=== PATIENT | female | born 1965 | race Caucasian/White ===

== ENCOUNTER 2016-10-05 21:07 | Emergency (ER) | payer OTHER ==
[~2016-10-05] VITALS: Ht 172.7 cm; Wt 77.1 kg
[~2016-10-05 21:07] MED LIST: ASPIRIN325 MG PO; AURODEX 54 MG/M10 ML OT; BACTRIM 400-801 EACH PO; CARLSON VITAM2000 IU PO; CENTRUM1 TA1 PO; CEPHALEXIN250 M2 PO; CLEOCIN HCL300 MG PO; CYCLOBENZAPRINE10 M2 PO; DILAUDID2 MG PO; ECOTRIN81 MG PO; ESCITALOPRAM OX10 MG PO; ESCITALOPRAM10 MG PO; FISH OIL CONCEN1 SGL PO; FLEXERIL 5MG TAB5 MG PO; IBU-6600 MG PO; IBUPROFEN800 MG PO; KEFLEX250 M1 PO; LISINOPRIL10 M1 PO; MEDROL DOSEPAK1 PAC PO; MELOXICAM7.5 MG PO; MOTRIN 600 MG600 MG PO; NAPROXEN500 MG PO; NEXIUM 24HR20 MG PO; NICOTINE PATCH1 EAC3 TOP; NORFLEX100 MG PO; OMEPRAZOLE40 MG PO; ONE DAILY MULT1 EAC2 PO; PANTOPRAZOLE SO40 MG PO; PERCOCET 325 MG1 TA2 PO; PREDNISONE 10MG10 M1 PO; PREDNISONE 20MG20 MG PO; TORADOL10 MG PO; TRAMADOL HCL50 M1 PO; TRIAMCINOL0.1 %/453 TOP; VALIUM5 M1 PO; ZITHROMAX Z PA250 MG PO; ZITHROMAX250 M1 PO; [UNRECOGNIZED DRUG - OTHER] PO
[2016-10-05 21:13] VITALS: BP 103/66
--- NOTE | 2016-10-05 21:49 | ED NECK/BACK PAIN COMPLAINT ---
History of Present Illness General Chief Complaint: Low Back Pain/Injury Stated Complaint: LEFT SIDE BACK AND LEG PAIN FROM SHOVELING Source: patient, old records Exam Limitations: no limitations Vital Signs & Intake/Output Vital Signs & Intake/Output Vital Signs Date Time Temp Pulse Resp B/P Pulse O2 O2 Flow FiO2 Ox Delivery Rate 10/05 2112 96.8 80 18 103/66 96 Room Air Allergies Coded Allergies: Penicillins (Intermediate, GI UPSET 02/09/16) Reconcile Medications Cyclobenzaprine HCl 5 MG TABLET 1 TAB PO TIDPRN PRN pain Escitalopram Oxalate 10 MG TABLET 1 TAB PO DAILY MENTAL HEALTH (Reported) Esomeprazole Magnesium (Nexium 24HR) 20 MG ECC 1 CAP PO PRN GI (Reported) Ibuprofen 800 MG TABLET 1 TAB PO TID PRN pain Lisinopril 10 MG TABLET 1 TAB PO DAILY BP (Reported) Multivitamin (One Daily Multivitamin) 1 TAB TAB 1 TAB PO DAILY SUPPLEMENT ( Reported) Nicotine (Nicotine Patch) 1 EACH PATCH.TD24 21 MG TOP 2300 smoking Oxycodone HCl/Acetaminophen (Percocet 5-325 MG Tablet) 5 MG-325 MG TABLET 1 TAB PO BID PRN breakthrough pain Tramadol HCl 50 MG TABLET 1 TAB PO BIDP PRN PAIN Vitamin D (Mercedes Vitamin D) (Unknown Strength) SGL 1 TAB PO DAILY SUPPLEMENT (Reported) Vitamin E (Sibley-E-Kaps) (Unknown Strength) SGL 1 TAB PO DAILY SUPPLEMENT ( Reported) Triage Note: PT TO ED C/O EXACERBATION OF SCIATICA PAIN TO LEFT LEG S/P SHOVELING TODAY. STATES HAD 2 GLASSES OF PINOT GRIGIO "BUT IT DIDN'T HELP" SPEACH SLIGHTLY SLURRED, PT JOVIAL IN TRIAGE Triage Nurses Notes Reviewed? yes Onset: Abrupt Duration: day(s): (1), constant Timing: recent history Quality/Severity: moderate Location: paraspinous muscles Radiation: buttocks, upper legs Context: lifting Method of Injury: LIFTING Loss of Consciousness: no loss of consciousness Modifying Factors: movement, rest Associated Symptoms: denies HPI: 51-year-old female with history of sciatica presents emergency room today for evaluation complaining of left lower back pain radiating to the left buttocks since earlier this morning when she was shuffling/. The patient reports a history of sciatica and states this feels similar. She took Tylenol without improvement. She reports tingling down her leg she denies any right-sided back or leg pain numbness or tingling. No urinary or bowel incontinence she did not fall to the ground. She denies any abdominal pain fever chills. The symptoms are worse with change in position better at rest Past History Travel History Traveled to [place] past 21 day No Medical History Any Pertinent Medical History? 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 No Review of Systems Review of Systems Constitutional: Reports: see HPI. All Other Systems: Reviewed and Negative Comments Review of systems: See HPI, All other systems negative. Constitutional, no chills no fever, no malaise HEENT: No visual changes no sore throat no congestion Cardiovascular: No chest pain , no palpitation Skin, no rashes, no change in skin Respiratory: No dyspnea no cough no sputum no hemoptysis GI: No nausea no vomiting, no diarrhea, n : No dysuria No hematuria, no frequency, no discharge Muscle skeletal: No joint pain, no joint swelling, back pain, no neck pain, Neurologic: No numbness no confusion, no headache Psych: No stress Heme/endocrine: No bruising no bleeding Immunology: No lymphadenopathy, Physical Exam Physical Exam General Appearance: well developed/nourished, alert, awake Neck: normal inspection, supple Comments: Well-developed well-nourished person in no acute distress HEENT: Normal EENT exam; PERRL, EOMI, HEAD is atraumatic. moist mucous membranes. Neck: Supple, no lymphadenopathy, normal range of motion Back: Left paralumbar muscle tenderness to palpation of midline tenderness no ecchymosis or signs of trauma, no CVA tenderness. Full range of motion Cardiovascular: Regular rate and rhythms no murmurs rubs or gallops Respiratory: No respiratory distress. Patient speaking in full complete sentences. Breath sounds clear to auscultation bilaterally: NO W/R/R Abdomen: Soft, nontender nondistended, no appreciable organomegaly. Normal bowel sounds. No rebound/guarding, Extremity: No edema, negative straight leg raise bilaterally full range of motion of extremities, normal and equal pulses bilaterally, 5 out of 5 strength noted to bilateral upper and lower extremities Neuro: Alert oriented x3, motor sensory normal. There were no obvious focal neurologic abnormalities. Skin: No appreciable rash on exposed skin, skin is warm and dry. Psych: Mood and affect is normal, memory and judgment is normal. Progress Differential Diagnosis: herniated disc, myofascial strain, pyelo/UTI, sciatica, spinal cord inj, thoracic outlet syn Plan of Care: Patient clinically looks well. Patient has no evidence of radiculopathy. No urinary bowel dysfunction. No numbness in the genital area. Strength intact. Gross sensation intact. Patient resting comfortably and in no apparent distress. Pain is worse with range of motion. Pain is reproducible IN back with no bruising or ecchymosis noted. . Patient is to follow-up with primary care doctor. May need MRI of the lower back at some point time. No concerns for cauda equina at this point time. I considered this diagnosis but patient does not have any symptoms consistent with cauda equina. Patient has no secondary causes of back pain. No cardiac, pulmonary, or abdominal complaints. No abdominal pain on exam. Cardiac pulmonary exam within normal limits. No rashes, afebrile, denies recent weight loss, dizziness, lightheadedness. Prescription for Percocet Flexeril ibuprofen provided she is scheduled to follow up with her primary care physician this week she feels comfortable plan patient is ambulatory with steady gait Departure Departure Time of Disposition: 2152 Disposition: HOME OR SELF CARE Condition: Stable Clinical Impression Primary Impression: Low back strain Referrals: FÉLIX SWIFT MD (PCP/Family) Additional Instructions: Follow-up with your primary care physician as scheduled in 2 days. Ibuprofen as directed Percocet for breakthrough pain use caution as this is a narcotic no driving or drinking alcohol while taking Flexeril as directed. These prescriptions were sent to [facility] Departure Forms: Customer Survey General Discharge Information Prescriptions: Current Visit Scripts Oxycodone HCl/Acetaminophen (Percocet 5-325 MG Tablet) 1 TAB PO BID PRN breakthrough pain #8 TAB Ibuprofen 1 TAB PO TID PRN pain #30 TAB Cyclobenzaprine HCl 1 TAB PO TIDPRN PRN pain #12 TAB
[2016-10-05] MEDS ORDERED: IBUPROFEN800 M1 PO (21:54)
[2016-10-05] MEDS ORDERED: PERCOCET 5-3251 EACH PO (21:54)
[2016-10-05] MEDS ORDERED: CYCLOBENZAPRINE5 M2 PO (21:54)
== END 2016-10-05 22:00 ==
LOC: ERH 21:07
DX: S39.012A Strain of muscle, fascia and tendon of lower back, initial encounter (principal); X58.XXXA Exposure to other specified factors, initial encounter; Y93.H1 Activity, digging, shoveling and raking

== ENCOUNTER 2016-10-06 23:25 | Inpatient (IN) | payer OTHER ==
[~2016-10-06] VITALS: Ht 172.7 cm; Wt 74.8 kg
[~2016-10-06 23:25] MED LIST changes: +CYCLOBENZAPRINE5 M2 PO; +IBUPROFEN800 M1 PO; +PERCOCET 5-3251 EACH PO
--- NOTE | 2016-10-06 23:33 | ED CARDIAC/CP/PALPITATIONS ---
History of Present Illness General Chief Complaint: Chest Pain Stated Complaint: CHEST PAIN Source: patient Exam Limitations: no limitations Vital Signs & Intake/Output Vital Signs & Intake/Output Vital Signs Date Time Temp Pulse Resp B/P Pulse O2 O2 Flow FiO2 Ox Delivery Rate 10/07 0123 174/114 10/07 0050 80 170/100 10/06 2340 96 Room Air 10/06 2336 97.5 82 20 179/106 96 Room Air ED Intake and Output 10/07 0000 10/06 1200 Intake Total 100 Output Total Balance 100 Intake, IV 100 Patient 175 lb Weight Allergies Coded Allergies: Penicillins (Intermediate, GI UPSET 02/09/16) Reconcile Medications Cyclobenzaprine HCl 5 MG TABLET 1 TAB PO TIDPRN PRN pain Escitalopram Oxalate 10 MG TABLET 1 TAB PO DAILY MENTAL HEALTH (Reported) Esomeprazole Magnesium (Nexium 24HR) 20 MG ECC 1 CAP PO PRN GI (Reported) Ibuprofen 800 MG TABLET 1 TAB PO TID PRN pain Lisinopril 10 MG TABLET 1 TAB PO DAILY BP (Reported) Multivitamin (One Daily Multivitamin) 1 TAB TAB 1 TAB PO DAILY SUPPLEMENT ( Reported) Nicotine (Nicotine Patch) 1 EACH PATCH.TD24 21 MG TOP 2300 smoking Oxycodone HCl/Acetaminophen (Percocet 5-325 MG Tablet) 5 MG-325 MG TABLET 1 TAB PO BID PRN breakthrough pain Tramadol HCl 50 MG TABLET 1 TAB PO BIDP PRN PAIN Vitamin D (Mercedes Vitamin D) (Unknown Strength) SGL 1 TAB PO DAILY SUPPLEMENT (Reported) Vitamin E (Sibley-E-Kaps) (Unknown Strength) SGL 1 TAB PO DAILY SUPPLEMENT ( Reported) Triage Nurses Notes Reviewed? yes Onset: Gradual Duration: day(s): Timing: recent history Quality/Severity: moderate Location: epigastric Radiation: no radiation Activities at Onset: none Prior Chest Pain/Card Workup: "it feels like I have pancreatitis." Modifying Factors: Improves With: rest. Worsens With: palpation. Associated Symptoms: abdominal pain, nausea/vomiting HPI: 51-year-old woman history of pancreatitis presents with midepigastric pain, nausea, vomiting for the past 1-2 days. She notes that she drinks vodka "throughout the day." She last had a drink several days ago. She notes 20 minutes prior to presentation in the emergency department that she had fleeting left-sided chest pain. She has no shortness of breath wheezing or radiating pain. She is otherwise well, without fever chills dysuria or diarrhea. Past History Travel History Traveled to [place] past 21 day No Medical History Any Pertinent Medical History? 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 No Review of Systems Review of Systems Constitutional: Reports: no symptoms. EENTM: Reports: no symptoms. Respiratory: Reports: no symptoms. Cardiovascular: Reports: no symptoms. GI: Reports: no symptoms. Genitourinary: Reports: no symptoms. Musculoskeletal: Reports: no symptoms. Skin: Reports: no symptoms. Neurological/Psychological: Reports: no symptoms. Hematologic/Endocrine: Reports: no symptoms. Immunologic/Allergic: Reports: no symptoms. All Other Systems: Reviewed and Negative Physical Exam Physical Exam General Appearance: well developed/nourished, mild distress Head: atraumatic, normal appearance Eyes: Bilateral: normal appearance. Ears, Nose, Throat: normal pharynx, normal ENT inspection Neck: normal inspection, supple, full range of motion Respiratory: normal breath sounds, chest non-tender, no respiratory distress, quiet respiration, lungs clear Cardiovascular: regular rate/rhythm Gastrointestinal: normal bowel sounds, soft, non-tender, no organomegaly Back: normal inspection, normal range of motion Extremities: normal inspection Neurologic/Psych: no motor/sensory deficits, awake, alert, oriented x 3 Skin: intact, normal color, warm/dry Core Measures ACS in differential dx? No Severe Sepsis Present: No Septic Shock Present: No Progress Differential Diagnosis: pancreatitis versus reflux versus alcohol withdrawal syndrome versus AR versus acute coronary syndrome versus other Plan of Care: Orders Procedure Date/time Status Nothing by Mouth 10/07 B Active Patient Data 10/07 010 Active Saline Lock 10/07 48 Active Misc Message 10/07 48 Active ED Holding Orders 10/07 48 Active Admit to inpatient 10/07 48 Active Vital Signs 10/07 48 Active Code Status 10/07 48 Active CTA CHEST-PULMONARY EMBOLISM 10/[address] ABD & PELVIS W IV CONTRAST 10/07 48 Active Add-on Test (ER Only) 10/06 2351 Active LIPASE 10/06 2345 Complete ETHANOL 10/06 2345 Complete AMYLASE 10/06 234 Complete XRY-PORTABLE CHEST XRAY 10/06 232 Active TROPONIN LEVEL 10/06 2327 Complete HUMAN BETA HCG SCREEN 10/06 2327 Complete D-DIMER 10/06 2327 Complete COMPREHENSIVE METABOLIC PANEL 10/06 2327 Complete CBC WITHOUT DIFFERENTIAL 10/06 2327 Complete EKG 10/06 2325 Active Current Medications Sig/Sina Start time Last Medication Dose Stop Time Status Admin Sodium Chloride 1,000 ML BOLUS ONE 10/07 0145 UNVr (Normal Saline 0.9%) 10/07 0244 Laboratory Tests 10/06/165: Anion Gap 13, Estimated GFR > 60, BUN/Creatinine Ratio 34.3 H, Glucose 145 H, Calcium 10.0, Total Bilirubin 0.9, AST 27, ALT 38, Alkaline Phosphatase 86, Troponin I < 0.01, Total Protein 7.5, Albumin 4.7, Globulin 2.8, Albumin/ Globulin Ratio 1.7, Amylase 441 H, Lipase 3831 H, Total Beta HCG NEGATIVE, D- Dimer 540 H, CBC w Diff MAN DIFF ORDERED, RBC 4.87, MCV 93.5, MCH 31.8 H, RDW 14.1, MPV 9.1, Gran % 89.3 H, Lymphocytes % 6.3 L, Monocytes % 4.0, Eosinophils % 0.1, Basophils % 0.3, Absolute Granulocytes 12.4 H, Segmented Neutrophils 94 H, Absolute Lymphocytes 0.9 L, Lymphocytes 3 L, Monocytes 3, Absolute Monocytes 0.6, Absolute Eosinophils 0, Absolute Basophils 0, Platelet Estimate ADEQUATE, Normochromic RBCs VERIFIED, Poikilocytosis 1+, Ovalocytes FEW , Stomatocytes 1+, PUBS MCHC 33.9, Fld Total RBCs Counted 100, Serum Alcohol < 10.0 10/06/162334: Amylase Cancelled, Lipase Cancelled Initial ED EKG: normal axis, normal intervals, normal p-waves, normal QRS complex, normal sinus rhythm Departure Departure Disposition: STILL A PATIENT Condition: Stable Clinical Impression Primary Impression: Pancreatitis Secondary Impressions: Chest pain, Hypertension Referrals: FÉLIX SWIFT MD (PCP/Family) Departure Forms: Customer Survey General Discharge Information Admission Note Spoke With: LUCHO VERAS MD Documentation of Exam: Documentation of any treatments & extenuating circumstances including Concerns Regarding Discharge (functional status, medication knowledge or non-compliance, living conditions, etc.) that warrant an admission rather than observation: Patient has pancreatitis and merits IV fluids and bowel rest. She also has chest pain and elevated blood pressure. Because of this she merits a telemetry admission and assessment for acute coronary syndrome and myocardial infarction with serial troponins and EKGs. CT angiogram to assess for pulmonary emboli has been ordered. At this time the results are pending. Critical Care Note Critical Care Note Critical Care Time: non-applicable
--- NOTE | 2016-10-06 23:39 | NUR ---
TO RM 3 AM W/CO RUQ PAIN, CP AND SCIATICA THAT CAME ON YESTERDAY. STATES SHE "WA TAKING PAIN MEDS FOR SCIATICA ADN WAS UNABLE TO HAVE BM. TODAY ABD PAIN AND VOMITING BEGAN DR VALLADARES AT BEDSIDE.
--- NOTE | 2016-10-06 23:45 | NUR ---
IV INSERTED. LABS DRWN -- SST,LAV,BLUE,SALE[facility] ALL SENT
--- NOTE | 2016-10-07 00:04 | NUR ---
STILL CO NAUSEA AFTER IV MEDS GIVEN. GI COCKTAIL HELD AT THIS TIME.
[2016-10-07 00:06] LABS: ABSOLUTE BASOPHIL COUNT 0 /CUMM (0.0-0.2); ABSOLUTE EOSINOPHIL COUNT 0 /CUMM (0.0-0.7); ABSOLUTE GRANULOCYTE CT 12.4 /CUMM (1.4-6.5); ABSOLUTE LYMPH COUNT 0.9 /CUMM (1.2-3.4); ABSOLUTE MONOCYTE COUNT 0.6 /CUMM (0.10-0.60); BASOPHIL % 0.3 % (0.0-2.0); EOSINOPHIL % 0.1 % (0-5); HEMATOCRIT 45.5 % (37-47); MEAN CORPUSCULAR HGB 31.8 PG (27.0-31.0); MEAN CORPUSCULAR HGB CONC 33.9 G/DL (33.0-37.0); MEAN CORPUSCULAR VOLUME 93.5 FL (81.0-99.0); MEAN PLATELET VOLUME 9.1 FL (7.4-10.4); PLATELET COUNT 191 /CUMM (130-400); RBC DISTRIBUTION WIDTH 14.1 % (11.5-14.5); RED BLOOD CELL CT 4.87 /CUMM (4.20-5.40); WHITE BLOOD CELL COUNT 13.8 /CUMM (4.8-10.8)
[2016-10-07 00:11] LABS: GRANULOCYTE % 89.3 % (42.2-75.2)
--- NOTE | 2016-10-07 01:12 | History & Physical ---
DEBBIE CLAYTON,[facility] [place]/07/16 0110: General Information and HPI MD Statement: I have seen and personally examined LOBITO STILES and documented this H&P. The patient is a 51 year old F who presented with a patient stated chief complaint of chest and abdominal pain. Source of Information: patient, old records Exam Limitations: no limitations History of Present Illness: Ms. Stiles is a 51 y/o F with PMHx of acute pancreatitis, alcohol dependence, cholelithiasis s/p cholecystectomy, GERD, L hip fracture, sciatica and HTN who presents with chest and abdominal pain and nausea/vomiting. Abdominal pain is epigastric and came on suddenly around 2-3 PM this afternoon while patient was lying in bed. Since then it has been progressively getting worse. She also complains of pain under her left chest which is nonradiating. Of note, patient has been having nausea and episodes of nonbloody bilious emesis since the morning of current presentation. She does not have an appetite and has not eaten anything today. She denies fever or chills. She denies palpitations or shortness of breath. She denies headache, lightheadedness or dizziness. She is a heavy drinker but plans to enroll in an outpatient rehab program. Her last drink was a bottle of wine two days ago. Of note, patient was hospitalized at [facility] for acute pancreatitis secondary to alcohol use, approximately one year prior to current presentation (10/29/15-11/01/15). Allergies/Medications Allergies: Coded Allergies: Penicillins (Intermediate, GI UPSET 02/09/16) Home Med list Cyclobenzaprine HCl 5 MG TABLET 1 TAB PO TIDPRN PRN pain Escitalopram Oxalate 10 MG TABLET 1 TAB PO DAILY MENTAL HEALTH (Reported) Esomeprazole Magnesium (Nexium 24HR) 20 MG ECC 1 CAP PO PRN GI (Reported) Ibuprofen 800 MG TABLET 1 TAB PO TID PRN pain Lisinopril 10 MG TABLET 1 TAB PO DAILY BP (Reported) Multivitamin (One Daily Multivitamin) 1 TAB TAB 1 TAB PO DAILY SUPPLEMENT ( Reported) Nicotine (Nicotine Patch) 1 EACH PATCH.TD24 21 MG TOP 2300 smoking Oxycodone HCl/Acetaminophen (Percocet 5-325 MG Tablet) 5 MG-325 MG TABLET 1 TAB PO BID PRN breakthrough pain Tramadol HCl 50 MG TABLET 1 TAB PO BIDP PRN PAIN Vitamin D (Mercedes Vitamin D) (Unknown Strength) SGL 1 TAB PO DAILY SUPPLEMENT (Reported) Vitamin E (Sibley-E-Kaps) (Unknown Strength) SGL 1 TAB PO DAILY SUPPLEMENT ( Reported) Past History Travel History Traveled to [place] past 21 day No Medical History Neurological: NONE EENT: NONE Cardiovascular: hypertension Respiratory: NONE Gastrointestinal: GERD, pancreatitis Hepatic: cholelithiasis Renal: NONE Musculoskeletal: fracture, sciatica, L HIP FX Psychiatric: NONE Endocrine: NONE Blood Disorders: NONE Cancer(s): NONE TOUR ACTOR/Reproductive: NONE History of MRSA: No History of VRE: No History of CDIFF: No Surgical History Surgical History: cholecystectomy, tubal ligation, LEFT HIP FX, Past Family/Social History Family History Relations & Conditions if any MOTHER Acute pancreatitis FATHER FH: diabetes mellitus FH: heart attack FH: stroke Psychosocial History Where do you live? Home Services at Home: None Primary Language: Uzbek Smoking Status: Current Everyday Smoker (1 PPD) ETOH Use: heavy use Illicit Drug Use: marijuana (occasionally) Functional Ability ADLs Independent: dressing, eating, toileting, bathing. Ambulation: independent IADLs Independent: shopping, housework, finances, food prep, telephone, transportation , medication admin. 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 EENTM: Reports: no symptoms. Cardiovascular: Reports: chest pain. Denies: palpitations. Respiratory: Denies: short of breath. GI: Reports: abdominal pain, nausea, vomiting. Denies: constipation, diarrhea. Genitourinary: Reports: no symptoms. Musculoskeletal: Reports: no symptoms. Skin: Reports: no symptoms. Neurological/Psychological: Reports: no symptoms. Hematologic/Endocrine: Reports: no symptoms. Immunologic/Allergic: Reports: no symptoms. All Other Systems: Reviewed and Negative Exam & Diagnostic Data Last 24 Hrs of Vital Signs/I&O Vital Signs Date Time Temp Pulse Resp B/P Pulse O2 O2 Flow FiO2 Ox Delivery Rate 10/07 0123 174/114 10/07 0050 80 170/100 10/06 2340 96 Room Air 10/06 2336 97.5 82 20 179/106 96 Room Air Intake & Output 10/07 0800 10/07 0000 10/06 1600 Intake Total 100 Output Total Balance 100 Intake, IV 100 Patient 79.379 kg Weight Physical Exam General Appearance Alert, Oriented X3, No Acute Distress Skin No Rashes HEENT Dry mucous membranes Cardiovascular Regular Rate, Normal S1, Normal S2 Lungs Clear to Auscultation Abdomen Soft, Tenderness to Palpation Most Pronounced at Epigastrium, Positive Bowel Sounds, No Guarding, Rebound or Rigidity Neurological Strength at 5/5 X4 Ext, No Gross Focal Deficits Noted Extremities No Clubbing, No Cyanosis, No Edema Vascular Normal Pulses, Pulses Symmetrical Last 24 Hrs of Labs/Yunier: Laboratory Tests 10/06/16 2345: Anion Gap 13, Estimated GFR > 60, BUN/Creatinine Ratio 34.3 H, Glucose 145 H, Calcium 10.0, Total Bilirubin 0.9, AST 27, ALT 38, Alkaline Phosphatase 86, Troponin I < 0.01, Total Protein 7.5, Albumin 4.7, Globulin 2.8, Albumin/ Globulin Ratio 1.7, Amylase 441 H, Lipase 3831 H, Total Beta HCG NEGATIVE, D- Dimer 540 H, CBC w Diff MAN DIFF ORDERED, RBC 4.87, MCV 93.5, MCH 31.8 H, RDW 14.1, MPV 9.1, Gran % 89.3 H, Lymphocytes % 6.3 L, Monocytes % 4.0, Eosinophils % 0.1, Basophils % 0.3, Absolute Granulocytes 12.4 H, Segmented Neutrophils 94 H, Absolute Lymphocytes 0.9 L, Lymphocytes 3 L, Monocytes 3, Absolute Monocytes 0.6, Absolute Eosinophils 0, Absolute Basophils 0, Platelet Estimate ADEQUATE, Normochromic RBCs VERIFIED, Poikilocytosis 1+, Ovalocytes FEW , Stomatocytes 1+, PUBS MCHC 33.9, Fld Total RBCs Counted 100, Serum Alcohol < 10.0 10/06/16 2335: Amylase Cancelled, Lipase Cancelled Diagnostic Data EKG Results NSR HR 66 Poor progression of R wave No ST-T wave abnormalities QTc [address] ABDOMEN/PELVIS W/ IV CONTRAST: - Imaging findings in keeping with acute pancreatitis with significant inflammatory change and edema surrounding the pancreas. No discrete peripherally enhancing fluid collections. The splenic vein remains patent. No radiopaque calculi. CTA CHEST PE: - No pulmonary emboli. No acute pulmonary process. Assessment/Plan Assessment: 51 y/o F with PMHx of acute pancreatitis, alcohol abuse and HTN who presents with chest and abdominal pain and nausea/vomiting. #Acute alcoholic pancreatitis: Presented with abdominal pain and elevated amylase/lipase consistent with acute pancreatitis. Confirmed by CT Abdomen/ Pelvis showing acute inflammatory changes within the pancreas. BISAP score 0. Secondary to alcohol use. S/p cholecystectomy with no evidence of gallstones on CT Abdomen/Pelvis. Previous lipid panel WNL. Prior episode in October 2014. * Keep patient NPO. * NS at 150-200 cc/hr in place of LR in the setting of borderline high calcium levels. * Zofran 4 mg IV Q6H PRN for nausea. * Dilaudid 0.4 mg IV Q4H PRN for pain. #Chest pain: Nonradiating pain located under left breast associated with the abdominal pain. Could be secondary to pancreatitis but need to rule out ACS in the setting of EKG changes suggestive of poor R wave progression. Elevated d- dimer concerning for PE but CTA negative for PE. * Admit to telemetry for continuous cardiac monitoring. * Serial EKGs and troponin. #Uncontrolled HTN: BP elevated to 179/106 on admission. Received 300 mg of PO labetalol in the ED without much improvement. * Continue home lisinopril 10 mg PO QD. * Adequate pain control with IV Dilaudid as above as pain could be contributing to elevation in BP. * Consider IV anti-hypertensives if BPs remain elevated especially given aggressive IVF hydration which should cause BP to rise further. #Alcohol abuse: Last drink 2 days prior to current admission per patient. * CIPA protocol monitor for signs/symptoms of alcohol withdrawal. * Ativan IV per CIWA protocol. * Consider starting patient on scheduled Ativan 0.5-1 mg PO BID. * PO MVI, thiamine and folate. #Nicotine dependence: 1 PPD smoker. * Nicotine patch 21 mg administered. * Encourage smoking cessation. #GERD: * Protonix 40 mg IV QD. Diet: NPO DVT PPx: Lovenox and ALPs Fluids: NS @ 150-200 cc/hr CODE: FULL As Ranked By This Provider Problem List: 1. Acute alcoholic pancreatitis 2. Uncontrolled hypertension 3. Chest pain 4. Nicotine dependence 5. Alcohol abuse 6. GERD (gastroesophageal reflux disease) Core Measures/Miscellaneous Acute Coronary Syndrome ACS Diagnosis: No Cerebrovascular Accident CVA/TIA Diagnosis: No Congestive Heart Failure CHF Diagnosis: No Venous Thromboembolism VTE Risk Factors: Acute medical illness, Age > 40, Smoking VTE Prophylaxis Ordered Inpt: Mech & Pharm No Mech VTE prophylaxis d/t: No contraindications No VTE Pharm Prophylaxis d/t: No contraindications VTE Diagnosis: No VTE Type: NONE VTE Confirmed by (Test): NONE Severe Sepsis Severe Sepsis Present: No Septic Shock Septic Shock Present: No Miscellaneous Documentation Attending Case Discussed With: LUCHO VERAS MD Primary Care Physician: FÉLIX SWIFT MD Patient sees these Specialists N/A Level of Patient Care: Telemetry ANGEL FELIPE MD 10/07/16 0301: Resident Review Statement Resident Statement: examined this patient, discussed with internet database specialist, agreed with internet database specialist Other Findings: 51-year-old female, heavy alcohol drinker (states that she has been drinking less) with past medical history of cholecystectomy, IBS, GERD, left hip fracture , tubal ligation and psoriasis presents to ER with chief complaint of abdominal pain and bloating for one day. Pain is sharp, 10/10, constant, generalized abdominal pain more in left upper quadrant, associated with nausea and vomiting. Reports chest pain along with abdominal pain that started 20 minutes after arrival to ER, describes an achying sensation under her ribs on the left side without radiation. Denies fevers, chills, diarrhea, constipation, palpitations, lightheadedness. T 97.5, P 82, R 20, BP 179/106, 96 RA Alert Oriented X 4 in moderate distress HEENT dry mucous membranes, LETHA CVS S1, S2 no m/r/g RS Clear to auscultation b/l Abdo diffuse tenderness, no guarding or rigidity, BS+ Extremities pulses 2+, no edema WBC 13.8, Granulocytes 89.3, BUN 24, Troponin 0.01, D-dimer 540, Amylase 441, Lipase 383 Lipid panel (10/30/15) Chol 199, Triglycerides 97, HDL,61, LDL 119 (10/30/15) BISAP score 0 EKG SR 66, QTc 453, nonspecific ekg changes in lateral leads Imaging - Imaging findings in keeping with acute pancreatitis with significant inflammatory change and edema surrounding the pancreas. No discrete peripherally enhancing fluid collections. The splenic vein remains patent. No radiopaque calculi. - No pulmonary emboli. No acute pulmonary process. 51 YO F with pmh of etoh abuse now presents after recent binge of etoh complaining of abdominal pain along with chest pain that started while in ER. She has nonspecific EKG changes with negative troponins. We will admit her to Telemetry to monitor for recurrent chest pain and get serial troponins and ekgs. Her BP is elevated this may be related to her pain secondary to pancreatitis. Keep her NPO start IVF with adequate hydration. Control pain and continue to monitor urine output. Advance diet as tolerated in am. History of GERD will continue IV protonix at this time. Zofran for nausea while closely monitoring QTc. CIWA scoring, use ativan per protocol. will start multivitamins, thiamine. Severe Pain Pathway, full code, DVT ppx lovenox LUCHO VERAS 10/07/16 0416: Attending MD Review Statement Attending Statement Attending MD Statement: examined this patient, discuss w/resident/PA/ASSOCIATE PROGRAMMER, agreed w/resident/PA/ASSOCIATE PROGRAMMER, reviewed EMR data (avail), reviewed images, amended to note Attending Assessment/Plan: CC: Abdominal pain, chest pain PMH : HTN, pancreatitis, current smoker, alcohol abuse, depression, S/P cholecystectomy Patient came with acute abdominal pain and nausea vomiting started this morning. She has unable to eat anything or keep anything down. She also complains of chest pain behind her breast, nonradiating. Difficult to take deep breaths because of abdominal pain, no chills, fever, palpitations, dizziness, vomiting, diarrhea, constipation. Vitals: Afebrile, HR, RR, O2 saturation in normal range. Mildly hypertensive at presentation with blood pressure 176/106 trending down to 180/97. On exam: A O 3, neck supple, no lymphadenopathy, mucosa dry, abdomen: Epigastric tenderness, no guarding or rigidity, bowel sounds present. CVS: S1-S2, RRR. No reproducible pain. RS: Clear to auscultate bilaterally. No dependent edema. Peripheral pulses and perfusion normal. No focal neurological deficit. Labs: Hemoglobin 13.8, granulocytes 89.3%, BUN 24, glucose 145, calcium 10.0, normal transaminases, lipase 3831, d-dimer 540, serum alcohol less than 10. CTA chest, CT abdomen pelvis with IV contrast: Imaging findings in keeping with acute pancreatitis with significant inflammatory change and edema surrounding the pancreas. No pulmonary emboli. No acute pulmonary process. Gallbladder surgically resected. Minimal intrahepatic and extrahepatic blurry ductal dilatation not unexpected in the setting of cholecystectomy. No radiopaque calculi. A and P #1 pancreatitis: Aggressive IV fluids with 150-200 mL per hour, pain control with IV morphine, nothing by mouth except ice chips, patient's previous lipid function was normal, no evident gallstones , S/P cholecystectomy: Pancreatitis secondary to alcohol. #2 chest pain: elevated d-dimer, CTA was obtain negative for pulmonary embolism. Observe on telemetry, Trend troponin, repeat EKG as patient has poor progression of R wave on EKG. Continue IV Protonix. #3 hypertension: Patient received 300 mg of labetalol in ER without much improvement in blood pressure, patient should be aggressively hydrated for her pancreatitis which may increase her blood pressure further, to achieve adequate pain control first, if her pressure still high was done 160/90, add 5 mg of lisinopril by mouth, #4 alcoholism: When necessary Ativan IV according to CIWA score protocol and scheduled 0.5-1 mg by mouth twice a day Ativan, replete thiamine, folic acid, aggressive hydration #5 Lovenox for DVT prophylaxis.
--- NOTE | 2016-10-07 01:19 | NUR ---
DR VALLADARES IN TO RE EVAL
--- NOTE | 2016-10-07 01:45 | NUR ---
HOUSE STAFF HERE TO EVAL AND WRITE ADMIT ORDERS
--- NOTE | 2016-10-07 02:02 | NUR ---
TO CT VIA STRETCHER.
--- NOTE | 2016-10-07 02:15 | NUR ---
PT BED ASSIGNMENT 189-2
--- NOTE | 2016-10-07 02:25 | NUR ---
RETD FROM CT
--- NOTE | 2016-10-07 02:42 | CT SCAN REPORT ---
EXAMINATION: CTA of the chest, PE protocol and CT of the abdomen and pelvis with IV contrast CLINICAL INFORMATION: Abdominal pain/pancreatitis. Chest pain with positive d-dimer. COMPARISON: Abdominal CT 10/29/2015. TECHNIQUE: Prior to contrast administration, noncontrast localization images were obtained. Subsequently, multidetector volumetric imaging was performed from the thoracic inlet to below the diaphragms following the administration of 80 mL Optiray 320 intravenous contrast. Additionally, a contrast enhanced CT of the abdomen and pelvis is performed. No contrast reaction reported Sagittal, coronal, and MIP oblique sagittal reformatted images were obtained on the CT workstation, uploaded to PACS, and reviewed. FINDINGS: CHEST: No filling defects within the central, lobar, or segmental pulmonary arteries to suggest underlying pulmonary embolism. There is no focal consolidation, pleural effusion, or pneumothorax. Mild dependent atelectasis. The thoracic aorta is normal in caliber. The heart is normal in size without evidence of a pericardial effusion. There is no mediastinal, hilar, or axillary adenopathy. No significant soft tissue findings within the chest. The partially visualized upper abdomen is unremarkable. No acute osseous abnormalities. ABDOMEN/PELVIS: Extensive inflammatory changes and edema surrounding the entirety of the pancreas, greatest from the pancreatic tail and body. No peripherally enhancing fluid collections. The splenic vein remains patent. Pancreatic parenchyma normally enhances. The lung bases are clear. Gallbladder surgically resected. Minimal intrahepatic and extrahepatic blurry ductal dilatation not unexpected in the setting of cholecystectomy. The spleen, adrenal glands, and kidneys are normal. Mild aortoiliac atherosclerotic calcification. Sigmoid diverticulosis without acute diverticulitis. The large and small bowel are normal in caliber without evidence of mechanical obstruction. No focal inflammatory changes adjacent to the large or the small bowel. No free air. No mesenteric or retroperitoneal adenopathy. The pelvic viscera are normal. No pelvic adenopathy. No free fluid within the pelvis. There are no acute osseous abnormalities. Degenerative disc disease at L4-L5 and L5-S1. Proximal left femoral pins. No significant soft tissue abnormality. IMPRESSION: - Imaging findings in keeping with acute pancreatitis with significant inflammatory change and edema surrounding the pancreas. No discrete peripherally enhancing fluid collections. The splenic vein remains patent. No radiopaque calculi. - No pulmonary emboli. No acute pulmonary process.
--- NOTE | 2016-10-07 02:58 | NUR ---
REPORT CALLED TO BROADCAST MAINTENANCE ENGINEER.
[2016-10-07 03:42] VITALS: BP 160/98
--- NOTE | 2016-10-07 04:17 | Admission Certification ---
Admission Certification Certification Statement - As attending physician, I certify that at the time of - admission, based on clinical presentation, severity of - symptoms, need for further diagnostic testing and - therapeutic interventions, and risk of adverse outcomes - without in-hospital treatment, in my clinical assessment, - this patient requires an acute hospital stay for a minimum - of two nights or longer. I have also considered psychsocial - factors such as support system, advanced age, financial - issues, cognitive issues, and failed out-patient treatments, - past re-admission history, safety of patient, and lack of - compliance as applicable. Specific rationale supporting this admission is: Pancreatitis
[2016-10-07 07:54] LABS: ABSOLUTE BASOPHIL COUNT 0 /CUMM (0.0-0.2); ABSOLUTE EOSINOPHIL COUNT 0 /CUMM (0.0-0.7); ABSOLUTE GRANULOCYTE CT 10.8 /CUMM (1.4-6.5); ABSOLUTE LYMPH COUNT 0.9 /CUMM (1.2-3.4); ABSOLUTE MONOCYTE COUNT 0.6 /CUMM (0.10-0.60); BASOPHIL % 0.2 % (0.0-2.0); EOSINOPHIL % 0.2 % (0-5); GRANULOCYTE % 87.6 % (42.2-75.2); HEMATOCRIT 41.8 % (37-47); MEAN CORPUSCULAR HGB 32.3 PG (27.0-31.0); MEAN CORPUSCULAR HGB CONC 34.5 G/DL (33.0-37.0); MEAN CORPUSCULAR VOLUME 93.5 FL (81.0-99.0); MEAN PLATELET VOLUME 9.5 FL (7.4-10.4); PLATELET COUNT 155 /CUMM (130-400); RBC DISTRIBUTION WIDTH 14.1 % (11.5-14.5); RED BLOOD CELL CT 4.47 /CUMM (4.20-5.40); WHITE BLOOD CELL COUNT 12.3 /CUMM (4.8-10.8)
[2016-10-07 08:07] VITALS: BP 170/94
--- NOTE | 2016-10-07 09:37 | PN- Housestaff ---
TERRI CLAYTON,[facility] 10/07/16 0937: Subjective Follow-up For: Acute pancreatitis Alcohol withdrawal Tele-Events Since Last Visit: Sinus rhythm, heart rate 70-80 Tachycardia up to heartrate 145 bpm for a few seconds Subjective: Patient was seen and examined this morning, she endorses severe epigastric abdominal pain that radiated to the back and left shoulder 12 out of 10 associated with some nausea although she feels she wanted to drink some juice or caridad kathy. She also reported constipation, last bowel movement was yesterday morning and had regular bowel regimen is daily. She also had her menstruation which gives her some abdominal cramps. Vital signs temperature 98.5 with MAXIMUM TEMPERATURE 98.5 Pulse 65, blood pressure 170/94, respiratory rate 18 on room air with saturation 92% Patient is nothing by mouth but able to take her pulse with some sips of water, will try to give her Benadryl as she wants and monitor Review of Systems Constitutional: Denies: chills, fever. EENTM: Denies: blurred vision. Cardiovascular: Denies: chest pain, orthopena. Respiratory: Denies: cough, short of breath. Gastrointestinal: Reports: abdominal pain, constipation, nausea. Denies: vomiting. Genitourinary: Denies: dysuria, hematuria. Musculoskeletal: Denies: joint pain, muscle pain. Skin: Denies: rash. Objective Last 24 Hrs of Vital Signs/I&O Vital Signs Date Time Temp Pulse Resp B/P Pulse O2 O2 Flow FiO2 Ox Delivery Rate 10/07 0807 98.5 65 18 170/94 92 Room Air 10/07 0422 67 154/92 10/07 0342 74 160/98 10/07 0246 98.1 78 20 180/97 95 10/07 0123 174/114 10/07 0050 80 170/100 10/06 2340 96 Room Air 10/06 2336 97.5 82 20 179/106 96 Room Air Intake & Output 10/07 1600 10/07 0800 10/07 0000 Intake Total 600 100 Output Total Balance 600 100 Intake, IV 600 100 Intake, Oral 0 Patient 74.843 kg 79.379 kg Weight Physical Exam General Appearance: Alert, Oriented X3, Cooperative, Mild Distress Skin: No Rashes, No Breakdown, No Significant Lesion HEENT: Atraumatic, PERRLA, EOMI, Mucous Membr. moist/pink Neck: Supple, No JVD Cardiovascular: Regular Rate, Normal S1, Normal S2, No Murmurs Lungs: Clear to Auscultation, decrease air entery bilateral, patient unable to take deep breath becuase of abdomenal pain Abdomen: Normal Bowel Sounds, diffuse tenderness Neurological: Normal Speech, Strength at 5/5 X4 Ext, Normal Tone, Sensation Intact, Cranial Nerves 3-12 NL, Reflexes 2+ Extremities: No Clubbing, No Cyanosis, No Edema, Normal Pulses Assessment/Plan Assessment: 50 y/o F with PMHx of acute pancreatitis, alcohol abuse and HTN who presents with abdominal pain, nausea and vomiting. #Acute alcoholic pancreatitis: Presented with abdominal pain and elevated amylase/lipase consistent with acure pancreatitis. Confirmed by CT Abdomen/ Pelvis showing acute inflammatory changes within the pancreas. BISAP score 0. [place] 2 score 6 less than 8% mortality * Keep patient NPO. Start liquid diet as tolerated * Continue Zofran 4 mg IV Q6H PRN for nausea * Dilaudid 1 mg every 4 * Start Ringer lactate 150 mL/h, repeated calcium 9.5 * Replete magnesium, potassium and phosphorus #Chest pain: Nonradiating pain located under left breast associated with the abdominal pain. Could be secondary to pancreatitis but need to rule out ACS in the setting of EKG changes of poor R wave progression. Elevated d-dimer concerning for PE but CTA negative for PE. * Serial EKGs and troponin negative #Uncontrolled HTN: BP elevated to 179/106 on admission. Received 300 mg of PO labetalol. * Continue home lisinopril 10 mg PO QD. #Alcohol abuse: * Last drink was one cup of wine 3 or 4 days ago * Patient used to drink daily, she denied any tremor or feeling shaky today * [facility] protocol monitor for signs/symptoms of alcohol withdrawal * Ativan IV 1 mg every 4 per CIWA protocol * PO MVI, thiamine and folate #Nicotine dependence: * Nicotine patch 21 mg administered * Encourage smoking cessation #GERD: * Protonix 40 mg IV QD Diet: NPO DVT PPx: Lovenox and ALPs CODE: FULL Problem List: 1. Acute alcoholic pancreatitis 2. GERD (gastroesophageal reflux disease) 3. Hypertension Pain Ratin Pain Location: Epigastric abdominal pain Pain Goal: Pain 4 or less Pain Plan: Dilaudid IV when milligrams every 4 Tomorrow's Labs & Rationales: CBC, CMP SAMANTA WILLIAM MD 10/07/16 1704: Attending MD Review Statement Attending Statement Attending MD Statement: examined this patient, discuss w/resident/PA/CATALYST UNIT OPERATOR, agreed w/resident/PA/CATALYST UNIT OPERATOR, reviewed EMR data (avail), discussed with nursing, discussed with case mgmt, reviewed images, amended to note Attending Assessment/Plan: The patient was seen and discussed with house staff. Agree with the plan of care as outlined. Still with abdominal pain and will adjust dose of Dilaudid as needed to decrease pain.
--- NOTE | 2016-10-07 11:14 | RADIOLOGY REPORT ---
EXAMINATION: XR PORTABLE CHEST CLINICAL INFORMATION: Chest pain COMPARISON: CT from earlier today TECHNIQUE: Portable view of the chest was obtained. FINDINGS: The lungs are hypoinflated. No focal consolidation is seen. No evidence of pneumothorax, pleural effusion, or pulmonary edema. The cardiomediastinal contour is unremarkable. No acute osseous findings are seen. IMPRESSION: Low lung volumes without acute findings.
[2016-10-07 15:19] VITALS: BP 142/80
[2016-10-07 16:00] VITALS: BP 142/80
[2016-10-07 22:43] VITALS: BP 138/90
[2016-10-08] VITALS: BP 138/90
--- NOTE | 2016-10-08 01:07 | NUR ---
PT'S 02 SAT AT 87%. PT PLACE ON 2L NC. RESPIRATORY PAGED. PT CURRENTLY SATTING 93% ON 2L. WILL CONTINUE TO MONITOR.
[2016-10-08 07:59] VITALS: BP 122/80
[2016-10-08 08:00] LABS: ABSOLUTE BASOPHIL COUNT 0 /CUMM (0.0-0.2); ABSOLUTE EOSINOPHIL COUNT 0 /CUMM (0.0-0.7); ABSOLUTE GRANULOCYTE CT 12.5 /CUMM (1.4-6.5); ABSOLUTE LYMPH COUNT 0.7 /CUMM (1.2-3.4); ABSOLUTE MONOCYTE COUNT 0.5 /CUMM (0.10-0.60); BASOPHIL % 0.1 % (0.0-2.0); EOSINOPHIL % 0.1 % (0-5); GRANULOCYTE % 90.7 % (42.2-75.2); HEMATOCRIT 39.3 % (37-47); MEAN CORPUSCULAR HGB 32.2 PG (27.0-31.0); MEAN CORPUSCULAR HGB CONC 34.4 G/DL (33.0-37.0); MEAN CORPUSCULAR VOLUME 93.8 FL (81.0-99.0); MEAN PLATELET VOLUME 9.9 FL (7.4-10.4); PLATELET COUNT 116 /CUMM (130-400); RBC DISTRIBUTION WIDTH 13.9 % (11.5-14.5); RED BLOOD CELL CT 4.19 /CUMM (4.20-5.40); WHITE BLOOD CELL COUNT 13.7 /CUMM (4.8-10.8)
--- NOTE | 2016-10-08 08:49 | PN- Housestaff ---
TERRI CLAYTON,[facility] 10/08/16 0849: Subjective Follow-up For: Acute pancreatitis Tele-Events Since Last Visit: Sinus rhythm sinus tachycardia, heart rate up to 145 yesterday PVC Subjective: Patient was seen and examined this morning, she looks better than yesterday, still complaining of abdominal pain but improved in comparison to yesterday. Abdominal pain is 6 out of 10 improved with medication. Denied any nausea, no bowel movement yet although she feels her abdomen distended and passing flatus. Denied shortness of breath or cough. Denied any urinary symptoms. Review of Systems Constitutional: Reports: see HPI. Objective Last 24 Hrs of Vital Signs/I&O Vital Signs Date Time Temp Pulse Resp B/P Pulse O2 O2 Flow FiO2 Ox Delivery Rate 10/08 1538 98.8 96 18 142/80 92 10/08 1025 Nasal 2.0L Cannula 10/08 0819 87 122/80 10/08 0800 Nasal 2.0L Cannula 10/08 0759 98.2 92 20 122/80 93 Nasal 2.0L Cannula 10/08 0106 94 Nasal 2.0L Cannula 10/08 0000 98.9 111 18 138/90 10/08 0000 93 Nasal 2.0L Cannula 10/07 2243 98.1 102 18 138/90 90 Room Air 10/07 2200 96 10/07 2000 112 Intake & Output 10/08 1600 10/08 0800 10/08 0000 Intake Total 1210 1260 Output Total Balance 1210 1260 Intake, IV 1210 1200 Intake, Oral 60 Patient 74.843 kg Weight Physical Exam General Appearance: Alert, Oriented X3, Cooperative, No Acute Distress Skin: No Rashes, No Breakdown, No Significant Lesion HEENT: Atraumatic, PERRLA, EOMI, Mucous Membr. moist/pink Neck: Supple Cardiovascular: Regular Rate, Normal S1, Normal S2, No Murmurs Lungs: Clear to Auscultation, Normal Air Movement Abdomen: Destened, diffuse tenderness Neurological: Normal Speech, Strength at 5/5 X4 Ext, Normal Tone, Sensation Intact, Cranial Nerves 3-12 NL, Reflexes 2+ Extremities: No Clubbing, No Cyanosis, No Edema, Normal Pulses Assessment/Plan Assessment: 50 y/o F with PMHx of acute pancreatitis, alcohol abuse and HTN who presents with abdominal pain, nausea and vomiting. #Acute alcoholic pancreatitis: Presented with abdominal pain and elevated amylase/lipase consistent with acure pancreatitis. Confirmed by CT Abdomen/ Pelvis showing acute inflammatory changes within the pancreas. BISAP score 0. [place] 2 score 6 less than 8% mortality * Clear liquid diet was started, advanced to full liquid diet as tolerated * Continue Zofran 4 mg IV Q6H PRN for nausea * Dilaudid 1 mg every 4 * Continue Ringer lactate 150 mL/h * Replete magnesium, potassium and phosphorus #Chest pain: -On admission patient reported nonradiating pain located under left breast associated with the abdominal pain. Could be secondary to pancreatitis but need to rule out ACS in the setting of EKG changes of poor R wave progression * Elevated d-dimer but CTA negative for PE * Serial EKGs and troponin negative #Uncontrolled HTN: BP elevated to 179/106 on admission. Received 300 mg of PO labetalol. * Continue home lisinopril 10 mg PO QD. #Alcohol abuse: * Last drink was one glass of wine 3 or 4 days ago * Patient used to drink daily, she denied any tremor or feeling shaky today * CIWA protocol monitor for signs/symptoms of alcohol withdrawal * Ativan IV 1 mg every 4 per CIWA protocol * PO MVI, thiamine and folate #Nicotine dependence: * Nicotine patch 21 mg administered * Encourage smoking cessation #GERD: * Protonix 40 mg IV QD Diet: NPO DVT PPx: Lovenox and ALPs CODE: FULL Problem List: 1. Acute alcoholic pancreatitis 2. Alcohol abuse Pain Ratin Pain Location: Epigastric abdominal apin Pain Goal: Pain 4 or less Pain Plan: Dilaudid 1 g every 4 when necessary IV Tomorrow's Labs & Rationales: CBC, CMP SAMANTA WILLIAM MD 10/08/162049: Attending MD Review Statement Attending Statement Attending MD Statement: examined this patient, discuss w/resident/PA/ENVIRONMENTAL HEALTH MANAGER, agreed w/resident/PA/ENVIRONMENTAL HEALTH MANAGER, reviewed EMR data (avail), discussed with nursing, discussed with case mgmt, amended to note Attending Assessment/Plan: The patient was seen and discussedwith house staff. Agree with the plan of care as outlined.
[2016-10-08 15:38] VITALS: BP 142/80
--- NOTE | 2016-10-08 17:15 | ULTRASOUND REPORT ---
EXAMINATION: US TRIPLEX LOWER EXTREMITY, BILATERAL CLINICAL INFORMATION: Acute pancreatitis. Bilateral calf pain. COMPARISON: None. TECHNIQUE: Color-flow triplex imaging with spectral analysis and compression Doppler were performed on the bilateral lower extremities. FINDINGS: Respiratory variation, normal compression and augmented flow are noted throughout the bilateral lower extremities. The visualized common femoral vein, superficial femoral vein, profunda femoral vein, popliteal vein and midcalf peroneal and posterior tibial venous segments show no evidence of deep venous thrombosis. There is a 4.3 x 2.0 x 2.1 cm cyst within the right popliteal fossa. IMPRESSION: No evidence of deep venous thrombosis involving the bilateral lower extremities. Right-sided Moran's cyst.
[2016-10-08 22:00] VITALS: BP 110/70
[2016-10-09 07:48] LABS: ABSOLUTE BASOPHIL COUNT 0 /CUMM (0.0-0.2); ABSOLUTE EOSINOPHIL COUNT 0.1 /CUMM (0.0-0.7); ABSOLUTE LYMPH COUNT 0.6 /CUMM (1.2-3.4); ABSOLUTE MONOCYTE COUNT 0.6 /CUMM (0.10-0.60); BASOPHIL % 0.1 % (0.0-2.0); MEAN CORPUSCULAR HGB 32.3 PG (27.0-31.0); WHITE BLOOD CELL COUNT 11.6 /CUMM (4.8-10.8)
[2016-10-09 08:03] LABS: ABSOLUTE GRANULOCYTE CT 10.3 /CUMM (1.4-6.5); EOSINOPHIL % 1.2 % (0-5); GRANULOCYTE % 88.4 % (42.2-75.2); MEAN CORPUSCULAR VOLUME 95.1 FL (81.0-99.0); MEAN PLATELET VOLUME 9.5 FL (7.4-10.4); PLATELET COUNT 102 /CUMM (130-400); RBC DISTRIBUTION WIDTH 14.1 % (11.5-14.5); RED BLOOD CELL CT 3.59 /CUMM (4.20-5.40)
[2016-10-09 08:08] LABS: HEMATOCRIT 34.2 % (37-47)
[2016-10-09 09:03] VITALS: BP 110/66
--- NOTE | 2016-10-09 09:33 | PN- Housestaff ---
TERRI CLAYTON,[facility] 10/09/16 0933: Subjective Follow-up For: Acute pancreatitis Tele-Events Since Last Visit: Patient is genemed hold Subjective: Patient was seen and examined this morning, no acute distress, abdominal pain is improving. She is having breakfast of full liquid diet without issues. She denied any nausea, vomiting. She didn't have a bowel movement yet, no urinary symptoms. Review of Systems Constitutional: Denies: fever, weakness. EENTM: Denies: blurred vision. Cardiovascular: Denies: chest pain, palpitations. Respiratory: Denies: cough, short of breath. Gastrointestinal: Reports: abdominal pain, constipation, distention. Denies: nausea, vomiting. Genitourinary: Denies: dysuria, hematuria. Objective Last 24 Hrs of Vital Signs/I&O Vital Signs Date Time Temp Pulse Resp B/P Pulse O2 O2 Flow FiO2 Ox Delivery Rate 10/09 1800 98.8 81 16 110/74 10/09 1751 98.8 87 20 110/80 95 Nasal Cannula 10/09 1451 99.0 88 20 120/76 93 Room Air 10/09 1010 88 110/66 10/09 0903 98.2 88 18 110/66 93 Room Air 10/09 0800 Nasal 2.0L Cannula 10/08 2200 98.5 91 20 110/70 91 Nasal 2.0L Cannula Intake & Output 10/09 1600 10/09 0800 10/09 0000 Intake Total 1680 1300 800 Output Total Balance 1680 1300 800 Intake, IV 1200 1200 600 Intake, Oral 480 100 200 Physical Exam General Appearance: Alert, Oriented X3, Cooperative, No Acute Distress Skin: No Rashes, No Breakdown, No Significant Lesion HEENT: Atraumatic, PERRLA, EOMI, Mucous Membr. moist/pink Cardiovascular: Regular Rate, Normal S1, Normal S2, No Murmurs Lungs: Clear to Auscultation, Normal Air Movement Abdomen: Normal Bowel Sounds, Soft, mild diffuse tenderness distended abdomen Neurological: Normal Gait, Normal Speech, Strength at 5/5 X4 Ext, Normal Tone, Sensation Intact, Cranial Nerves 3-12 NL, Reflexes 2+ Extremities: No Clubbing, No Cyanosis, No Edema, Normal Pulses Assessment/Plan Assessment: 50 y/o F with PMHx of acute pancreatitis, alcohol abuse and HTN who presents with abdominal pain, nausea and vomiting. #Acute alcoholic pancreatitis: Presented with abdominal pain and elevated amylase/lipase consistent with acure pancreatitis. Confirmed by CT Abdomen/ Pelvis showing acute inflammatory changes within the pancreas. BISAP score 0. [place] 2 score 6 less than 8% mortality * Diet was advanced to full liquid diet overnight, patient tolerated diet well. Advance diet as tolerated * Continue Zofran 4 mg IV Q6H PRN for nausea * Dilaudid 1 mg every 4 * Continue Ringer lactate 150 mL/h * Replete magnesium, potassium and phosphorus * Aggressive bowel regimen MiraLAX, Senaa tab, Dulcolax by mouth and suppository #Chest pain: -On admission patient reported nonradiating pain located under left breast associated with the abdominal pain. Could be secondary to pancreatitis but need to rule out ACS in the setting of EKG changes of poor R wave progression * Elevated d-dimer but CTA negative for PE * Serial EKGs and troponin negative #Uncontrolled HTN: BP elevated to 179/106 on admission. Received 300 mg of PO labetalol. * Continue home lisinopril 10 mg PO QD. #Alcohol abuse: * Last drink was one glass of wine 3 or 4 days ago * Patient used to drink daily, she denied any tremor or feeling shaky today * CIWA protocol monitor for signs/symptoms of alcohol withdrawal * Ativan IV 1 mg every 4 per CIWA protocol * PO MVI, thiamine and folate #Nicotine dependence: * Nicotine patch 21 mg administered * Encourage smoking cessation #GERD: * Protonix 40 mg IV QD #Thrombocytopenia * Mostly attributed to acute alcoholic pancreatitis * Platelet 102<116 * DC Lovenox and continue Alps as DVT prophylaxis Diet: Full liquid diet DVT PPx: ALPs CODE: FULL Problem List: 1. Alcohol abuse 2. Acute alcoholic pancreatitis Pain Ratin Pain Location: Diffuse abdominal pain Pain Goal: Pain 4 or less Pain Plan: See medication Tomorrow's Labs & Rationales: CBC, CMP SAMANTA WILLIAM MD 10/09/16 1734: Attending MD Review Statement Attending Statement Attending MD Statement: examined this patient, discuss w/resident/PA/BINDERY TECHNICIAN, agreed w/resident/PA/BINDERY TECHNICIAN, reviewed EMR data (avail), discussed with nursing, amended to note Attending Assessment/Plan: The patient was seen and discussed with house staff. Agree with the plan of care as outlined.
[2016-10-09 14:51] VITALS: BP 120/76
[2016-10-09 17:51] VITALS: BP 110/80
[2016-10-09 18:00] VITALS: BP 110/74
--- NOTE | 2016-10-09 21:52 | Discharge Summary ---
Visit Information Visit Dates Admission Date: 10/07/16 Discharge Date: 10/11/16 Hospital Course Course Attending Physician: SAMANTA WILLIAM MD Primary Care Physician: JAMISON CLAYTON,[facility] Course: Ms. Villalpando is a 51 y/o F with PMHx of acute pancreatitis, alcohol dependence, cholelithiasis s/p cholecystectomy, GERD, L hip fracture, sciatica and HTN who presents on 10/07 to ED with chief complaint of chest and abdominal pain. The patient complained of sudden onset of epigastric abdominal pain that started on day of admission and was progressively getting worse, the pain radiated to her back and the left side of her chest associated with nausea and episode of nonbloody bilious emesis. She denied fever or chills. She denied palpitations or shortness of breath, headache, lightheadedness or dizziness. She is a heavy drinker but plans to enroll in an outpatient rehab program. Her last drink was a bottle of wine two days before admission. Of note, patient was hospitalized at [facility] for acute pancreatitis secondary to alcohol use, approximately one year prior to current presentation (10/29/15-11/01/15). Patient was admitted to telemetry floor because of chest pain to rule out ACS in the setting of EKG changes of poor R wave progression Assessment: 50 y/o F with PMHx of acute pancreatitis, alcohol abuse and HTN who presents with abdominal pain, nausea and vomiting. #Acute alcoholic pancreatitis: Presented with abdominal pain and elevated amylase/lipase consistent with acure pancreatitis. Confirmed by CT Abdomen/ Pelvis showing acute inflammatory changes within the pancreas. BISAP score 0. [place] 2 score 6 less than 8% mortality * Patient kept nothing by mouth, IV fluid Ringer lactate and pain control * Diet was advanced as tolerated * Zofran 4 mg IV Q6H PRN for nausea * Pain pathway; 4 mg PO dilaudid Q4-6 PRN for severe pain, IV ofirmev for moderate pain, tylenol PO for mild pain. * Replete magnesium, potassium and phosphorus * Aggressive bowel regimen MiraLAX, Senaa tab, Dulcolax by mouth and suppository * Patient was discharged, patient was given a prescription for Dilaudid 1 tab by mouth every 6 when necessary 10 tabs, follow up with primary care physician after discharge #Chest pain: -On admission patient reported nonradiating pain located under left breast associated with the abdominal pain. Could be secondary to pancreatitis but need to rule out ACS in the setting of EKG changes of poor R wave progression * Elevated d-dimer but CTA negative for PE * Serial EKGs and troponin negative * Resolved, no chest pain in the last 48 hours #Uncontrolled HTN: BP elevated to 179/106 on admission. Received 300 mg of PO labetalol. * Continue home lisinopril 10 mg PO QD * Blood pressure is stable #Alcohol abuse: * Last drink was one glass of wine 2 days before admission * Patient used to drink daily, she denied any tremor or feeling shaky, no s/s alcohol withdrawl * [facility] protocol monitor for signs/symptoms of alcohol withdrawal * Ativan IV 1 mg every 4 per [facility] protocol * PO MVI, thiamine and folate #Nicotine dependence: * Nicotine patch 21 mg administered * Encourage smoking cessation #GERD: * Protonix 40 mg IV QD #Thrombocytopenia * Mostly attributed to acute alcoholic pancreatitis * Platelet started to decrease on 10/08 * DC Lovenox and continue Alps as DVT prophylaxis Diet: Regular diet DVT PPx: ALPs CODE: FULL Allergies: Coded Allergies: Penicillins (Intermediate, GI UPSET 02/09/16) Disposition Summary Disposition Principal Diagnosis: Acute alcoholic pancreatitis Additional Diagnosis: Alcohol abuse Hypertension Nicotine dependence GERD Discharge Disposition: home or self care Discharge Instructions General Discharge Information Code Status: Full Code Patient's Diet: Regular diet as tolerated Patient's Activity: As tolerated Follow-Up Instructions/Appts: Please follow up with Dr. Oseguera within 7 days of discharge from [facility]. Please take all medications as directed. Please attend your program for alcohol cessation. Please take all medications as directed. Medications at Discharge Discharge Medications: Continue taking these medications: Multivitamin (One Daily Multivitamin) 1 TAB TAB 1 Tablet ORAL DAILY Comments: NOT GIVEN AT HOSPITAL Vitamin D (Mercedes Vitamin D) (Unknown Strength) SGL 1 Tablet ORAL DAILY Qty = 30 Comments: NOT GIVEN IN HOSPITAL Vitamin E (Sibley-E-Kaps) (Unknown Strength) SGL 1 Tablet ORAL DAILY Qty = 30 Comments: NOT GIVEN IN HOSPITAL Esomeprazole Magnesium (Nexium 24HR) 20 MG ECC 1 Capsule ORAL as needed for GI Comments: NOT GIVEN IN HOSPITAL Nicotine (Nicotine Patch) 1 EACH PATCH.TD24 21 Milligram On the skin 2300 Qty = 30 Comments: Last Taken: 10/11/16 Time: 11PM Lisinopril (Lisinopril) 10 MG TABLET 1 Tablet ORAL DAILY Qty = 30 Comments: Last Taken: 10/11/16 Time: 0930 Escitalopram Oxalate (Escitalopram Oxalate) 10 MG TABLET 1 Tablet ORAL DAILY Qty = 90 Comments: Last Taken: 10/11/16 Time: 09 Tramadol HCl (Tramadol HCl) 50 MG TABLET 1 Tablet ORAL 2 x Daily as needed as needed for PAIN Qty = 10 Comments: NOT GIVEN Oxycodone HCl/Acetaminophen (Percocet 5-325 MG Tablet) 5 MG-325 MG TABLET 1 Tablet ORAL TWICE DAILY as needed for breakthrough pain Qty = 8 Comments: NOT GIVEN Ibuprofen (Ibuprofen) 800 MG TABLET 1 Tablet ORAL THREE TIMES DAILY as needed for pain Qty = 30 Comments: NOT GIVEN Cyclobenzaprine HCl (Cyclobenzaprine HCl) 5 MG TABLET 1 Tablet ORAL THREE TIMES A DAY NEEDED as needed for pain Qty = 12 Comments: NOT GIVEN Start taking the following new medications: Hydromorphone HCl (Dilaudid) 4 MG TABLET 1 Tablet ORAL EVERY 6 HOURS NEEDED as needed for Pain Qty = 12 No Refills Comments: Last Taken: 10/11/16 Time: 0730 Copies To: JAMISON CLAYTON,FÉLIX Attending MD Review Statement Documenting Attending: SAMANTA WILLIAM MD Other Findings: The patient was seen and agree with the plan of care upon discharge.
[2016-10-09 22:05] VITALS: BP 110/60
[2016-10-10 02:00] VITALS: BP 108/76
[2016-10-10 07:20] VITALS: BP 110/70
--- NOTE | 2016-10-10 08:05 | PN- Housestaff ---
See Addendum Subjective Follow-up For: Acute pancreatitis Subjective: Patient seen and examined at bedside this AM. She continues to endorse epigastric pain, however she denies nausea, vomiting. She reports that she previously did not have a bowel movement for 4 days, however after receiving senna, colace and miralax she had a few loose stools this AM. She reports mild abdominal pain after her liquid diet, however she wants to continue to eat. Review of Systems Constitutional: Denies: chills, fever, malaise. EENTM: Denies: blurred vision, visual changes, hearing changes. Cardiovascular: Denies: chest pain, palpitations. Respiratory: Denies: cough, short of breath. Gastrointestinal: Reports: abdominal pain. Denies: constipation, diarrhea, distention, nausea, vomiting. Genitourinary: Denies: dysuria, frequency, hematuria. Musculoskeletal: Denies: back pain. Skin: Denies: change in skin color, change in hair/nails. Neurological/Psychological: Denies: confusion, headache, numbness. Hematologic/Endocrine: Denies: bruising, bleeding. Objective Last 24 Hrs of Vital Signs/I&O Vital Signs Date Time Temp Pulse Resp B/P Pulse O2 O2 Flow FiO2 Ox Delivery Rate 10/10 1102 110/70 10/10 0720 98.2 93 16 110/70 91 Room Air 10/10 0200 97.1 66 18 108/76 92 Room Air 10/09 2205 97.9 71 18 110/60 92 Room Air 10/09 1800 98.8 81 16 110/74 10/09 1751 98.8 87 20 110/80 95 Nasal Cannula 10/09 1451 99.0 88 20 120/76 93 Room Air Intake & Output 10/10 1600 10/10 0800 10/10 0000 Intake Total 1300 400 Output Total Balance 1300 400 Intake, IV 1200 300 Intake, Oral 100 100 Physical Exam General Appearance: Alert, Oriented X3, Cooperative, No Acute Distress Skin: No Rashes, No Significant Lesion HEENT: Atraumatic, PERRLA, Mucous Membr. moist/pink Neck: Supple, No JVD Lymphatic: Cervical nl Cardiovascular: Regular Rate, Normal S1, Normal S2 Lungs: Clear to Auscultation, Normal Air Movement Abdomen: Normal Bowel Sounds, Soft, Diffuse abdominal pain on light palpation, worse in the epigastric area. Neurological: Normal Speech, Strength at 5/5 X4 Ext, Normal Tone Extremities: No Clubbing, No Cyanosis, No Edema Vascular: Pulses Symmetrical Current Medications: Current Medications Sig/Sina Start time Last Medication Dose Route Stop Time Status Admin Acetaminophen 650 MG Q6P PRN 10/07 0215 AC PO Acetaminophen 1,000 MG Q8P PRN 10/07 0215 AC 10/07 IV 0515 Bisacodyl 5 MG DAILY 10/09 1000 AC 10/10 PO 1103 Bisacodyl 10 MG DAILY PRN 10/09 0900 AC NC Docusate Sodium 100 MG DAILY NEEDED PRN 10/07 0930 AC PO Enoxaparin Sodium 40 MG DAILY 10/07 1000 DC 10/09 SC 1011 Escitalopram Oxalate 10 MG DAILY 10/07 1000 AC 10/10 PO 1103 Hydromorphone HCl 1 MG Q4P PRN 10/07 0930 AC 10/10 IV 0801 Lactated Ringer's 1,000 ML Q6H 10/07 0915 AC 10/10 IV 1103 Lisinopril 10 MG DAILY 10/07 1000 AC 10/10 PO 1102 Lorazepam 1 MG Q4 HRS NEEDED PRN 10/07 1045 AC PO Multivitamins 1 TAB DAILY 10/07 1000 AC 10/10 PO 1102 Nicotine 21 MG 2300 10/07 2300 AC 10/09 TOP 2234 Ondansetron HCl 4 MG Q6P PRN 10/07 0915 AC IV Ondansetron HCl 4 MG Q6P PRN 10/07 0400 AC 10/07 IV 0515 Pantoprazole Sodium 40 MG DAILY 10/07 1000 AC 10/10 IV 1102 Polyethylene Glycol 17 GM DAILY 10/07 1000 AC 10/10 PO 1103 Potassium Chloride 20 MEQ ONCE ONE 10/09 1400 DC 10/09 PO 10/09 1401 1407 Senna/Docusate Sodium 1 TAB BID PRN 10/07 0930 AC PO Thiamine HCl 100 MG DAILY 10/07 1000 AC 10/10 PO 1102 Last 24 Hrs of Lab/Yunier Results Last 24 Hrs of Labs/Mics: Laboratory Tests 10/10/16 0820: Anion Gap 8, Estimated GFR > 60, BUN/Creatinine Ratio 16.7, CBC w Diff NO MAN DIFF REQ, RBC 3.36 L, MCV 95.1, MCH 32.2 H, RDW 13.9, MPV 9.3, Gran % 82.4 H, Lymphocytes % 7.1 L, Monocytes % 6.4, Eosinophils % 3.8, Basophils % 0.3, Absolute Granulocytes 6.4, Absolute Lymphocytes 0.6 L, Absolute Monocytes 0.5, Absolute Eosinophils 0.3, Absolute Basophils 0, PUBS MCHC 33.9 Orders Radiology Findings: EXAMINATION: US TRIPLEX LOWER EXTREMITY, BILATERAL CLINICAL INFORMATION: Acute pancreatitis. Bilateral calf pain. COMPARISON: None. TECHNIQUE: Color-flow triplex imaging with spectral analysis and compression Doppler were performed on the bilateral lower extremities. FINDINGS: Respiratory variation, normal compression and augmented flow are noted throughout the bilateral lower extremities. The visualized common femoral vein, superficial femoral vein, profunda femoral vein, popliteal vein and midcalf peroneal and posterior tibial venous segments show no evidence of deep venous thrombosis. There is a 4.3 x 2.0 x 2.1 cm cyst within the right popliteal fossa. IMPRESSION: No evidence of deep venous thrombosis involving the bilateral lower extremities. Right-sided Moran's cyst. EXAMINATION: XR PORTABLE CHEST CLINICAL INFORMATION: Chest pain COMPARISON: CT from earlier today TECHNIQUE: Portable view of the chest was obtained. FINDINGS: The lungs are hypoinflated. No focal consolidation is seen. No evidence of pneumothorax, pleural effusion, or pulmonary edema. The cardiomediastinal contour is unremarkable. No acute osseous findings are seen. IMPRESSION: Low lung volumes without acute findings. Miscellaneous Findings: EXAMINATION: CTA of the chest, PE protocol and CT of the abdomen and pelvis with IV contrast CLINICAL INFORMATION: Abdominal pain/pancreatitis. Chest pain with positive d-dimer. COMPARISON: Abdominal CT 10/29/2015. TECHNIQUE: Prior to contrast administration, noncontrast localization images were obtained. Subsequently, multidetector volumetric imaging was performed from the thoracic inlet to below the diaphragms following the administration of 80 mL Optiray 320 intravenous contrast. Additionally, a contrast enhanced CT of the abdomen and pelvis is performed. No contrast reaction reported Sagittal, coronal, and MIP oblique sagittal reformatted images were obtained on the CT workstation, uploaded to PACS, and reviewed. FINDINGS: CHEST: No filling defects within the central, lobar, or segmental pulmonary arteries to suggest underlying pulmonary embolism. There is no focal consolidation, pleural effusion, or pneumothorax. Mild dependent atelectasis. The thoracic aorta is normal in caliber. The heart is normal in size without evidence of a pericardial effusion. There is no mediastinal, hilar, or axillary adenopathy. No significant soft tissue findings within the chest. The partially visualized upper abdomen is unremarkable. No acute osseous abnormalities. ABDOMEN/PELVIS: Extensive inflammatory changes and edema surrounding the entirety of the pancreas, greatest from the pancreatic tail and body. No peripherally enhancing fluid collections. The splenic vein remains patent. Pancreatic parenchyma normally enhances. The lung bases are clear. Gallbladder surgically resected. Minimal intrahepatic and extrahepatic blurry ductal dilatation not unexpected in the setting of cholecystectomy. The spleen, adrenal glands, and kidneys are normal. Mild aortoiliac atherosclerotic calcification. Sigmoid diverticulosis without acute diverticulitis. The large and small bowel are normal in caliber without evidence of mechanical obstruction. No focal inflammatory changes adjacent to the large or the small bowel. No free air. No mesenteric or retroperitoneal adenopathy. The pelvic viscera are normal. No pelvic adenopathy. No free fluid within the pelvis. There are no acute osseous abnormalities. Degenerative disc disease at L4-L5 and L5-S1. Proximal left femoral pins. No significant soft tissue abnormality. IMPRESSION: - Imaging findings in keeping with acute pancreatitis with significant inflammatory change and edema surrounding the pancreas. No discrete peripherally enhancing fluid collections. The splenic vein remains patent. No radiopaque calculi. - No pulmonary emboli. No acute pulmonary process. Assessment/Plan Assessment: 50 y/o F with PMHx of acute pancreatitis, alcohol abuse and HTN who presents with abdominal pain, nausea and vomiting. #Acute alcoholic pancreatitis: Presented with abdominal pain and elevated amylase/lipase consistent with acute pancreatitis. Confirmed by CT Abdomen/ Pelvis showing acute inflammatory changes within the pancreas. BISAP score 0. [place] 2 score 6 less than 8% mortality * Diet was advanced to full liquid diet, patient reporting diffuse abdominal tenderness slightly worse after eating, will keep diet full liquid for now * Continue Zofran 4 mg IV Q6H PRN for nausea * 4 mg PO dilaudid Q4-6 PRN for severe pain, IV ofirmev for moderate pain, tylenol PO for mild pain. * Continue Ringer lactate 150 mL/h as oral intake is suboptimal * Repleted magnesium, potassium and phosphorus * Aggressive bowel regimen MiraLAX, Senaa tab, Dulcolax by mouth and suppository (patient had BM today 10/10) #Chest pain: On admission, patient reported nonradiating pain located under left breast associated with the abdominal pain. Could be 2/2 to pancreatitis but need to rule out ACS in the setting of EKG changes/ poor R wave progression. * Elevated d-dimer but CTA negative for PE * Serial EKGs and troponin negative * Resolved #Uncontrolled HTN: BP elevated to 179/106 on admission. Received 300 mg of PO labetalol. * Continue home lisinopril 10 mg PO QD. * Vital signs Q shift, BP is currently stable and WNL #Alcohol abuse: * Last drink was one glass of wine 5 days ago * Patient used to drink daily, she denied any tremor or feeling shaky today * CIWA protocol monitor for signs/symptoms of alcohol withdrawal * Ativan IV 1 mg every 4 per CIWA protocol, CIWA score has been 0 * PO MVI, thiamine and folate #Nicotine dependence: * Nicotine patch 21 mg administered * Encourage smoking cessation #GERD: * Protonix 40 mg IV QD #Thrombocytopenia * Mostly attributed to acute alcoholic pancreatitis * Platelet 102<116 * DC Lovenox on 10/09/16 and continue Alps for DVT prophylaxis Diet: Full liquid diet DVT PPx: ALPs CODE: FULL Problem List: 1. GERD (gastroesophageal reflux disease) 2. Alcohol abuse 3. Uncontrolled hypertension 4. Acute alcoholic pancreatitis 5. Chest pain 6. Hypertension Pain Ratin Pain Location: Epigastric area most prominently, diffuse abdomen Pain Goal: Pain 4 or less Pain Plan: Dilaudid for severe pain, IV ofirmev for moderate pain, tylenol tab for mild pain. Tomorrow's Labs & Rationales: CBC (monitor thrombocytopenia, leukocytosis, dropping H&H), BEP (monitor hyponatremia, electrolytes)
[2016-10-10 09:01] LABS: ABSOLUTE BASOPHIL COUNT 0 /CUMM (0.0-0.2); ABSOLUTE EOSINOPHIL COUNT 0.3 /CUMM (0.0-0.7); ABSOLUTE GRANULOCYTE CT 6.4 /CUMM (1.4-6.5); ABSOLUTE LYMPH COUNT 0.6 /CUMM (1.2-3.4); ABSOLUTE MONOCYTE COUNT 0.5 /CUMM (0.10-0.60); BASOPHIL % 0.3 % (0.0-2.0); EOSINOPHIL % 3.8 % (0-5); GRANULOCYTE % 82.4 % (42.2-75.2); HEMATOCRIT 31.9 % (37-47); MEAN CORPUSCULAR HGB 32.2 PG (27.0-31.0); MEAN CORPUSCULAR HGB CONC 33.9 G/DL (33.0-37.0); MEAN CORPUSCULAR VOLUME 95.1 FL (81.0-99.0); MEAN PLATELET VOLUME 9.3 FL (7.4-10.4); PLATELET COUNT 123 /CUMM (130-400); RBC DISTRIBUTION WIDTH 13.9 % (11.5-14.5); RED BLOOD CELL CT 3.36 /CUMM (4.20-5.40); WHITE BLOOD CELL COUNT 7.8 /CUMM (4.8-10.8)
[2016-10-10 14:00] VITALS: BP 116/70
[2016-10-10 22:18] VITALS: BP 120/72
[2016-10-11] VITALS: BP 120/72
[2016-10-11 02:00] VITALS: BP 136/80
[2016-10-11 02:34] VITALS: BP 136/80
[2016-10-11 06:00] VITALS: BP 124/76; BP 136/80
--- NOTE | 2016-10-11 06:58 | PN- Housestaff ---
See Addendum Subjective Follow-up For: Acute pancreatitis Chest pain Subjective: Patient seen and examined at bedside this AM. She reports she ate a regular diet this AM and has noted NO increasing abdominal pain as well as no nausea or vomiting. Patient currently denies fever, chills, chest pain, shortness of breath, dysuria or constipation/diarrhea. She is requesting discharge today. Of note, she does continue to endorse epigastric/LUQ pain that is slowly improving daily and currently tolerable. Review of Systems Constitutional: Denies: chills, fever, malaise. EENTM: Denies: blurred vision, visual changes, hearing changes, nasal congestion, throat pain. Cardiovascular: Denies: chest pain, palpitations, peripheral edema. Respiratory: Denies: cough, short of breath, sputum production. Gastrointestinal: Reports: abdominal pain (Improving, epigastric/LUQ). Genitourinary: Denies: dysuria, frequency. Musculoskeletal: Denies: joint pain. Skin: Denies: change in skin color, change in hair/nails, lesions. Neurological/Psychological: Denies: confusion, headache. Hematologic/Endocrine: Denies: bruising, bleeding. Immunologic/Allergic: Denies: splenectomy. Objective Last 24 Hrs of Vital Signs/I&O Vital Signs Date Time Temp Pulse Resp B/P Pulse O2 O2 Flow FiO2 Ox Delivery Rate 10/11 0600 97.9 91 20 136/80 10/11 0600 97.8 60 18 124/76 95 Room Air 10/11 0234 97.9 91 20 136/80 92 Room Air 10/11 0200 97.9 91 20 136/80 10/11 0000 99.8 86 18 120/72 10/10 2218 99.8 86 18 120/72 94 Room Air 10/10 1400 98.3 70 18 116/70 94 10/10 1102 110/70 Intake & Output 10/11 1600 10/11 0800 10/11 0000 Intake Total 300 1530 Output Total Balance 300 1530 Intake, IV 1050 Intake, Oral 300 480 Number 1 Bowel Movements Physical Exam General Appearance: Alert, Oriented X3, Cooperative, No Acute Distress Skin: No Rashes, No Significant Lesion HEENT: Atraumatic, PERRLA, Mucous Membr. moist/pink Neck: Supple, No JVD, No thryomegaly Lymphatic: Cervical nl Cardiovascular: Regular Rate, Normal S1, Normal S2, No Murmurs Lungs: Clear to Auscultation, Normal Air Movement Abdomen: Normal Bowel Sounds, Soft, No Hepatospenomegaly, No Masses, Mild tenderness to palpation of epigastric and LUQ. No rebound or guarding. Neurological: Normal Gait, Normal Speech, Strength at 5/5 X4 Ext, Normal Tone Extremities: No Clubbing, No Cyanosis, No Edema Vascular: Pulses Symmetrical Current Medications: Current Medications Sig/Sina Start time Last Medication Dose Route Stop Time Status Admin Acetaminophen 1,000 MG Q8P PRN 10/10 1130 AC IV Acetaminophen 650 MG Q6P PRN 10/07 0215 AC PO Acetaminophen 1,000 MG Q8P PRN 10/07 0215 DC 10/07 IV 0515 Bisacodyl 5 MG DAILY 10/09 1000 AC 10/10 PO 1103 Bisacodyl 10 MG DAILY PRN 10/09 0900 AC MO Docusate Sodium 100 MG DAILY NEEDED PRN 10/07 0930 AC PO Escitalopram Oxalate 10 MG DAILY 10/07 1000 AC 10/10 PO 1103 Hydromorphone HCl 1 MG ONCE ONE 10/10 1630 DC 10/10 IV 10/10 1631 1658 Hydromorphone HCl 4 MG Q4-6 PRN PRN 10/10 1115 AC 10/11 PO 0736 Hydromorphone HCl 1 MG Q4P PRN 10/07 0930 DC 10/10 IV 0801 Ibuprofen 600 MG Q6P PRN 10/10 1130 CAN PO Lactated Ringer's 1,000 ML Q6H 10/07 0915 AC 10/11 IV 0419 Lisinopril 10 MG DAILY 10/07 1000 AC 10/10 PO 1102 Lorazepam 1 MG Q4 HRS NEEDED PRN 10/07 1045 AC PO Multivitamins 1 TAB DAILY 10/07 1000 AC 10/10 PO 1102 Nicotine 21 MG 2300 10/07 2300 AC 10/10 TOP 2211 Ondansetron HCl 4 MG Q6P PRN 10/07 0915 AC IV Ondansetron HCl 4 MG Q6P PRN 10/07 0400 AC 10/07 IV 0515 Pantoprazole Sodium 40 MG DAILY 10/07 1000 AC 10/10 IV 1102 Polyethylene Glycol 17 GM DAILY 10/07 1000 AC 10/10 PO 1103 Senna/Docusate Sodium 1 TAB BID PRN 10/07 0930 AC PO Thiamine HCl 100 MG DAILY 10/07 1000 AC 10/10 PO 1102 Last 24 Hrs of Lab/Yunier Results Last 24 Hrs of Labs/Mics: Laboratory Tests 10/11/16 0610: Anion Gap 7, Estimated GFR > 60, BUN/Creatinine Ratio 13.3, CBC w Diff NO MAN DIFF REQ, RBC 3.15 L, MCV 94.5, MCH 31.9 H, RDW 14.3, MPV 9.1, Gran % 70.1, Lymphocytes % 15.4 L, Monocytes % 9.5 H, Eosinophils % 4.6, Basophils % 0.4, Absolute Granulocytes 4.3, Absolute Lymphocytes 0.9 L, Absolute Monocytes 0.6, Absolute Eosinophils 0.3, Absolute Basophils 0, PUBS MCHC 33.8 Orders Radiology Findings: EXAMINATION: CTA of the chest, PE protocol and CT of the abdomen and pelvis with IV contrast CLINICAL INFORMATION: Abdominal pain/pancreatitis. Chest pain with positive d-dimer. COMPARISON: Abdominal CT 10/29/2015. TECHNIQUE: Prior to contrast administration, noncontrast localization images were obtained. Subsequently, multidetector volumetric imaging was performed from the thoracic inlet to below the diaphragms following the administration of 80 mL Optiray 320 intravenous contrast. Additionally, a contrast enhanced CT of the abdomen and pelvis is performed. No contrast reaction reported Sagittal, coronal, and MIP oblique sagittal reformatted images were obtained on the CT workstation, uploaded to PACS, and reviewed. FINDINGS: CHEST: No filling defects within the central, lobar, or segmental pulmonary arteries to suggest underlying pulmonary embolism. There is no focal consolidation, pleural effusion, or pneumothorax. Mild dependent atelectasis. The thoracic aorta is normal in caliber. The heart is normal in size without evidence of a pericardial effusion. There is no mediastinal, hilar, or axillary adenopathy. No significant soft tissue findings within the chest. The partially visualized upper abdomen is unremarkable. No acute osseous abnormalities. ABDOMEN/PELVIS: Extensive inflammatory changes and edema surrounding the entirety of the pancreas, greatest from the pancreatic tail and body. No peripherally enhancing fluid collections. The splenic vein remains patent. Pancreatic parenchyma normally enhances. The lung bases are clear. Gallbladder surgically resected. Minimal intrahepatic and extrahepatic blurry ductal dilatation not unexpected in the setting of cholecystectomy. The spleen, adrenal glands, and kidneys are normal. Mild aortoiliac atherosclerotic calcification. Sigmoid diverticulosis without acute diverticulitis. The large and small bowel are normal in caliber without evidence of mechanical obstruction. No focal inflammatory changes adjacent to the large or the small bowel. No free air. No mesenteric or retroperitoneal adenopathy. The pelvic viscera are normal. No pelvic adenopathy. No free fluid within the pelvis. There are no acute osseous abnormalities. Degenerative disc disease at L4-L5 and L5-S1. Proximal left femoral pins. No significant soft tissue abnormality. IMPRESSION: - Imaging findings in keeping with acute pancreatitis with significant inflammatory change and edema surrounding the pancreas. No discrete peripherally enhancing fluid collections. The splenic vein remains patent. No radiopaque calculi. - No pulmonary emboli. No acute pulmonary process. Miscellaneous Findings: Venous doppler: IMPRESSION: No evidence of deep venous thrombosis involving the bilateral lower extremities. Right-sided Moran's cyst. CXR: IMPRESSION: Low lung volumes without acute findings. Assessment/Plan Assessment: 50 y/o F with PMHx of acute pancreatitis, alcohol abuse and HTN who presents with abdominal pain, nausea and vomiting. Patient has remained afebriule with normal vital signs over the last 24 hours. Below is the current management on the general medicine floor: #Acute alcoholic pancreatitis: Presented with abdominal pain and elevated amylase/lipase consistent with acute pancreatitis. Confirmed by CT Abdomen/ Pelvis showing acute inflammatory changes within the pancreas. BISAP score 0. [place] 2 score 6 less than 8% mortality. * Diet was advanced to regular diet this AM, patient reported that she tolerated this well and is requesting discharge today * Continue Zofran 4 mg IV Q6H PRN for nausea, though patient has not needed this since 10/07/16 * Continue 4 mg PO dilaudid Q4-6 PRN for severe pain, IV ofirmev for moderate pain, tylenol PO for mild pain. * Will discontinue Ringer lactate 150 mL/h today as oral intake is optimal * Repleted magnesium, potassium and phosphorus * Aggressive bowel regimen MiraLAX, Senaa tab, Dulcolax by mouth and suppository (patient had BM today 10/11) #Chest pain: On admission, patient reported nonradiating pain located under left breast associated with the abdominal pain. Could be 2/2 to pancreatitis but need to rule out ACS in the setting of EKG changes/ poor R wave progression. * Elevated d-dimer but CTA negative for PE * Serial EKGs and troponin negative * Resolved, no chest pain in the last 48 hours #Uncontrolled HTN: BP elevated to 179/106 on admission. Received 300 mg of PO labetalol. * Continue home lisinopril 10 mg PO QD. * Vital signs Q shift, BP is currently stable and WNL #Alcohol abuse: * Last drink was one glass of wine 6 days ago * Patient used to drink daily, she denied any tremor or feeling shaky today, no s/s alcohol withdrawl * CIMD protocol monitor for signs/symptoms of alcohol withdrawal * Ativan IV 1 mg every 4 per CIMD protocol, CIWA scores have been 0 * PO MVI, thiamine and folate #Nicotine dependence: * Nicotine patch 21 mg administered * Encourage smoking cessation #GERD: * Protonix 40 mg IV QD #Thrombocytopenia * Mostly attributed to acute alcoholic pancreatitis * Platelet today is 121, continue to monitor * DC'd Lovenox on 10/09/16 and continued Alps for DVT prophylaxis Diet: Full liquid diet DVT PPx: ALPs CODE: FULL Problem List: 1. GERD (gastroesophageal reflux disease) 2. Alcohol abuse 3. Uncontrolled hypertension 4. Acute alcoholic pancreatitis 5. Chest pain Pain Ratin Pain Location: Epigastric/LUQ pain Pain Goal: Pain 4 or less Pain Plan: PO tylenol for moderate pain, IV tylenol for moderate pain, PO dilaudid 4 mg Q4- 6P for severe pain. Tomorrow's Labs & Rationales: None, likely discharge today.
--- NOTE | 2016-10-11 07:41 | Patient Discharge Instructions ---
Discharge Instructions General Discharge Information You were seen/treated for: Chest pain Acute pancreatitis Special Instructions: Please follow up with Dr. Oseguera within 7 days of discharge from [place]. Please take all medications as directed. Please attend your program for alcohol cessation. Please take all medications as directed. Diet Recommended Diet: Regular Activity Activity Self Limited: Yes Acute Coronary Syndrome Inclusion Criteria At DC or during hospital stay patient has or had the following: ACS DIAGNOSIS No Discharge Core Measures Meds if any: Prescribed or Continued at Discharge Meds if any: NOT Prescribed or Continued at Discharge Congestive Heart Failure Inclusion Criteria At DC or during hospital stay patient has or had the following: CHF DIAGNOSIS No Discharge Core Measures Meds if any: Prescribed or Continued at Discharge Meds if any: NOT Prescribed or Continued at Discharge Cerebrovascular accident Inclusion Criteria At DC or during hospital stay patient has or had the following: CVA/TIA Diagnosis No Discharge Core Measures Meds if any: Prescribed or Continued at Discharge Meds if any: NOT Prescribed or Continued at Discharge Venous thromboembolism Inclusion Criteria VTE Diagnosis No VTE Type NONE VTE Confirmed by (Test) NONE Discharge Core Measures - Per Current guidelines, there needs to be overlap - treatment for the first 5 days of Warfarin therapy. - If discharged on Warfarin prior to 5 days of - overlap therapy, the patient will need to be - assessed for post discharge needs including - *Post discharge parental anticoagulation - *Warfarin and/or parental anticoagulation education - *Follow up date to check INR post discharge At least 5 days overlap therapy as Inpatient No Meds if any: Prescribed or Continued at Discharge Note: Overlap Therapy is Warfarin and Anticoagulant Meds if any: NOT Prescribed or Continued at Discharge
[2016-10-11 07:55] LABS: ABSOLUTE BASOPHIL COUNT 0 /CUMM (0.0-0.2); ABSOLUTE EOSINOPHIL COUNT 0.3 /CUMM (0.0-0.7); ABSOLUTE GRANULOCYTE CT 4.3 /CUMM (1.4-6.5); ABSOLUTE LYMPH COUNT 0.9 /CUMM (1.2-3.4); ABSOLUTE MONOCYTE COUNT 0.6 /CUMM (0.10-0.60); BASOPHIL % 0.4 % (0.0-2.0); EOSINOPHIL % 4.6 % (0-5); GRANULOCYTE % 70.1 % (42.2-75.2); HEMATOCRIT 29.8 % (37-47); MEAN CORPUSCULAR HGB 31.9 PG (27.0-31.0); MEAN CORPUSCULAR HGB CONC 33.8 G/DL (33.0-37.0); MEAN CORPUSCULAR VOLUME 94.5 FL (81.0-99.0); MEAN PLATELET VOLUME 9.1 FL (7.4-10.4); PLATELET COUNT 121 /CUMM (130-400); RBC DISTRIBUTION WIDTH 14.3 % (11.5-14.5); RED BLOOD CELL CT 3.15 /CUMM (4.20-5.40); WHITE BLOOD CELL COUNT 6.1 /CUMM (4.8-10.8)
[2016-10-11 09:10] VITALS: BP 126/88
[2016-10-11] MEDS ORDERED: DILAUDID4 M1 PO (09:26)
== END 2016-10-11 10:13 | DRG 282 ==
LOC: ENRESERVDT → ENRESERVTM → ERH 23:25 → 1NO 10-07 00:49 → ERHI 10-07 00:49 → EDBEDREQ 10-07 01:51 → 1NO 10-07 03:19 → 2NA 10-09 14:45
PROVIDERS: Pediatrics; Student in an Organized Health Care Education/Training Program; ADMIT Internal Medicine
DX: K85.20 Alcohol induced acute pancreatitis without necrosis or infection (principal); F10.239 Alcohol dependence with withdrawal, unspecified; F17.210 Nicotine dependence, cigarettes, uncomplicated; K21.9 Gastro-esophageal reflux disease without esophagitis; F32.9 Major depressive disorder, single episode, unspecified; R00.0 Tachycardia, unspecified; I10 Essential (primary) hypertension; D69.6 Thrombocytopenia, unspecified; Y90.0 Blood alcohol level of less than 20 mg/100 ml
CPT/HCPCS: 1NSP; 2NASP; 36415; 74177; 82436; 93005; 93010; 93970; 96374; 96375; G0480; J0131; J1170; J1650; J1885; J2405; J7120

== ENCOUNTER 2016-11-07 14:34 | Emergency (ER) | payer OTHER ==
[~2016-11-07] VITALS: Ht 172.7 cm; Wt 72.6 kg
[~2016-11-07 14:34] MED LIST changes: +DILAUDID4 M1 PO
[2016-11-07 14:53] VITALS: BP 111/79
--- NOTE | 2016-11-07 15:15 | ED UPPER/LOWER EXTREMITY COMPL ---
History of Present Illness General Chief Complaint: Lower Extremity Injury Stated Complaint: RT KNEE PAIN Source: patient, old records Exam Limitations: no limitations Vital Signs & Intake/Output Vital Signs & Intake/Output Vital Signs Date Time Temp Pulse Resp B/P Pulse O2 O2 Flow FiO2 Ox Delivery Rate 11/07 1453 98.1 58 16 111/79 98 Room Air Allergies Coded Allergies: Penicillins (Intermediate, GI UPSET 11/07/16) Reconcile Medications Cyclobenzaprine HCl 5 MG TABLET 1 TAB PO TIDPRN PRN pain Escitalopram Oxalate 10 MG TABLET 1 TAB PO DAILY MENTAL HEALTH (Reported) Esomeprazole Magnesium (Nexium 24HR) 20 MG ECC 1 CAP PO PRN GI (Reported) Hydromorphone HCl (Dilaudid) 4 MG TABLET 1 TAB PO Q6PRN PRN Pain Ibuprofen 800 MG TABLET 1 TAB PO TID PRN pain Lisinopril 10 MG TABLET 1 TAB PO DAILY BP (Reported) Multivitamin (One Daily Multivitamin) 1 TAB TAB 1 TAB PO DAILY SUPPLEMENT ( Reported) Nicotine (Nicotine Patch) 1 EACH PATCH.TD24 21 MG TOP 2300 smoking Oxycodone HCl/Acetaminophen (Percocet 5-325 MG Tablet) 5 MG-325 MG TABLET 1 TAB PO BID PRN breakthrough pain Tramadol HCl 50 MG TABLET 1 TAB PO BIDP PRN PAIN Vitamin D (Mercedes Vitamin D) (Unknown Strength) SGL 1 TAB PO DAILY SUPPLEMENT (Reported) Vitamin E (Sibley-E-Kaps) (Unknown Strength) SGL 1 TAB PO DAILY SUPPLEMENT ( Reported) Triage Note: PT TO ED C/O KNEE PAIN. PT WAS LIFTING A BODY AND KNEE HIT THE BACK OF THE TRUCK IN THE PROCESS. STATES KNEE CAP WENT UP HER THIGH BUT SHE WAS ABLE TO PUSH KNEE CAP DOWN Triage Nurses Notes Reviewed? yes Onset: Abrupt Duration: hour(s): (1), constant Timing: single episode today Severity: mild, moderate Severity Numbers: 4 Pain/Injury Location: Right: Knee. Method of Injury: direct blow No Modifying Factors: none Associated Symptoms: none HPI: 51-year-old female presents to emergency room complaining of right anterior knee pain, she states she was lifting a bag of potatoes into her truck when she fell 4 striking her knee against the top of the truck bumper. She now presents complaining of mild aching pain to her right anterior knee. 4 out of 10. She denies any swelling, there is no radiation of pain she denies any other injury no hip back foot or ankle pain. She is not taken anything for her symptoms she was medicated with Motrin in triage. She states she has been able to bend her knee and weight bear on her knee since. There are no other modifying factors or associated symptoms otherwise (JASKARAN CELAYA) Past History Medical History Any Pertinent Medical History? see below for history Neurological: NONE EENT: NONE Cardiovascular: hypertension Respiratory: NONE Gastrointestinal: GERD, pancreatitis Hepatic: cholelithiasis Renal: NONE Musculoskeletal: fracture, sciatica, L HIP FX Psychiatric: NONE Endocrine: NONE Blood Disorders: NONE Cancer(s): NONE TANK PUMPER/Reproductive: NONE History of MRSA: No History of VRE: No History of CDIFF: No Surgical History Surgical History: cholecystectomy, tubal ligation, LEFT HIP FX, Psychosocial History Who do you live with Significant Other Services at Home None What is your primary language Norwegian Family History Family History, If Any: MOTHER Acute pancreatitis FATHER FH: diabetes mellitus FH: heart attack FH: stroke Hx Contributory? No (JASKARAN CELAYA) Review of Systems Review of Systems Constitutional: Reports: see HPI. All Other Systems: Reviewed and Negative Comments Review of systems: See HPI, All other systems negative. Constitutional, no chills no fever, no malaise no weight loss HEENT: no sore throat no congestion Cardiovascular: No chest pain , no palpitation , Skin, no rashes, no change in skin Respiratory: No dyspnea no cough no sputum GI: No nausea no vomiting, : No dysuria No hematuria, Muscle skeletal: joint pain, no joint swelling Neurologicno headache Psych: No stress Heme/endocrine: No bruising no bleeding Immunology: No lymphadenopathy (JASKARAN CELAYA) Physical Exam Physical Exam General Appearance: well developed/nourished, no apparent distress, alert, awake , comfortable Comments: Well-developed well-nourished patient in no apparent distress. HEENT: Atraumatic, extraocular motion intact Neck: Supple, FROM Back: FROM Cardiovascular: Regular rate and rhythms no murmurs Respiratory: Chest nontender.There were no bony deformities, no asymmetry. No respiratory distress. Patient speaking in full complete sentences. Breath sounds clear to auscultation bilaterally: NO W/R/R Upper Extremities: full range of motion Hip/Pelvis: Atraumatic/Stable. FROM. No pain with pelvic compression Knee: Atraumatic/stable. FROM both active and passive to the right knee, there isno overlying erythema or abrasions or lacerations no ecchymosis,. No joint swelling, no effusion. No laxity. Negative amanda/anterior drawer test. No pain with ROM, pt able to straight leg raise without pain or difficulty Leg: Atraumatic. Nontender. No edema, 5 out of 5 strength in the lower extremity, normal dorsiflexion of great toe bilaterally, gross sensation is intact, patellar tendon reflex 2+ bilaterally. Ankle/Foot: Atraumatic/stable. Skin intact. FROM. No swelling, no effusion. No laxity on exam Pulses: Normal/equal DP/PT pulses bilaterally. Brisk cap refill Neuro: Alert and oriented x3 Skin: Warm & dry;No appreciable rash on exposed skin Psych: Mood affect normal, normal memory normal judgment. (JASKARAN CELAYA) Progress Differential Diagnosis: compartment syndrome, contusion, dislocation, fracture, sprain, tendon injury Plan of Care: Orders Procedure Date/time Status Durable Medical Equipment 11/07 1526 Active 11/07/2016 3:34:52 PM the patient is refusing to wait for her x-ray stating she has a dinner date to get to, I discussed with her the importance of imaging to rule out possible fracture or joint effusion. She is refusing to stay stating she'll follow-up with her doctor if the symptoms persist. i d/w the patient Need for supportive care Rice leg immobilizer was applied advised Tylenol Motrin for pain keep leg elevated, close follow-up with her primary care physician return with any concerns she feels comfortable this plan ambulatory with steady gait from room 19 on discharge (JASKARAN CELAYA) Departure Departure Time of Disposition: 1533 Disposition: HOME OR SELF CARE Condition: Stable Clinical Impression Primary Impression: Knee sprain Referrals: JAMISON CLAYTON,FÉLIX (PCP/Family) Additional Instructions: Keep leg elevated rest ice, leg immobilizer as discussed. Discussed it was recommended that he have an x-ray performed today which your declining. Follow- up with your primary care physician this week, Tylenol or Motrin every 4-6 hours return with any concerns Departure Forms: Customer Survey General Discharge Information (JASKARAN CELAYA) PA/QUAL FIELD MANAGER Co-Sign Statement Statement: ED Attending supervision documentation- [] I saw and evaluated the patient. I have also reviewed all the pertinent lab results and diagnostic results. I agree with the findings and the plan of care as documented in the PA's/QUAL FIELD MANAGER's documentation. [X] I have reviewed the ED Record and agree with the PA's/QUAL FIELD MANAGER's documentation. [] Additions or exceptions (if any) to the PAs/QUAL FIELD MANAGER's note and plan are summarized below: [] (BERNARDINO CLAYTON,JOHANNA Crum)
== END 2016-11-07 15:40 ==
LOC: ERH 14:34
DX: S83.91XA Sprain of unspecified site of right knee, initial encounter (principal); W19.XXXA Unspecified fall, initial encounter

== ENCOUNTER 2016-11-24 13:15 | Emergency (ER) | payer OTHER ==
[~2016-11-24] VITALS: Ht 172.7 cm; Wt 77.1 kg
--- NOTE | 2016-11-24 14:33 | ED UPPER/LOWER EXTREMITY COMPL ---
History of Present Illness General Chief Complaint: Upper Extremity Injury Stated Complaint: LFT HIP INJURY Source: patient Exam Limitations: no limitations Vital Signs & Intake/Output Vital Signs & Intake/Output Vital Signs Date Time Temp Pulse Resp B/P Pulse O2 O2 Flow FiO2 Ox Delivery Rate 11/24 1527 98.2 88 18 115/72 99 Room Air Room Air 11/24 1323 98.1 87 18 112/75 99 Room Air Allergies Coded Allergies: Penicillins (Intermediate, GI UPSET 11/07/16) Reconcile Medications Cyclobenzaprine HCl 10 MG TABLET 1 TAB PO TID SPASMS Cyclobenzaprine HCl 10 MG TABLET 1 TAB PO TID SPASMS Escitalopram Oxalate 10 MG TABLET 1 TAB PO DAILY MENTAL HEALTH (Reported) Lisinopril 10 MG TABLET 1 TAB PO DAILY BP (Reported) Multivitamin (One Daily Multivitamin) 1 EACH TABLET 1 TAB PO DAILY SUPPLEMENT (Reported) Oxycodone HCl/Acetaminophen (Percocet 5-325 MG Tablet) 5 MG-325 MG TABLET 1-2 TAB PO Q6P PRN pain Triage Note: 51 Y/O FEMALE C/O L HIP PAIN S/P FALL THIS AM. STATES SHE "TWISTED" HIP WHILE SNOW BLOWING AND THEN FELL, FELT A "POP". PT REPORTS HX HIP SURGERY WITH 3 PINS PLACED WHEN SHE WAS IN HER 20'S. REPORTS CONSTANT PAIN SINCE INJURY THIS MORNING. Triage Nurses Notes Reviewed? yes Onset: Abrupt Duration: hour(s):, constant, continues in ED Timing: single episode today Severity: moderate, severe Pain/Injury Location: Left: Hip. No Modifying Factors: none HPI: 51-year-old female comes into emergency room for further evaluation of left hip pain. (DAVION CAPELLAN) Past History Travel History Traveled to [place] past 21 day No Medical History Any Pertinent Medical History? see below for history Neurological: NONE EENT: NONE Cardiovascular: hypertension Respiratory: NONE Gastrointestinal: GERD, pancreatitis Hepatic: cholelithiasis Renal: NONE Musculoskeletal: fracture, sciatica, L HIP FX Psychiatric: NONE Endocrine: NONE Blood Disorders: NONE Cancer(s): NONE GRILL PREP COOK/Reproductive: NONE History of MRSA: No History of VRE: No History of CDIFF: No Surgical History Surgical History: cholecystectomy, tubal ligation, LEFT HIP FX, Psychosocial History Who do you live with Significant Other Services at Home None What is your primary language Luxembourgish Tobacco Use: Current Daily Use Daily Tobacco Use Amount/Type: => 5 Cigarettes daily Family History Family History, If Any: MOTHER Acute pancreatitis FATHER FH: diabetes mellitus FH: heart attack FH: stroke Hx Contributory? No (DAVION CAPELLAN) Review of Systems Review of Systems Constitutional: Reports: no symptoms. EENTM: Reports: no symptoms. Respiratory: Reports: no symptoms. Cardiovascular: Reports: no symptoms. Gastrointestinal/Abdominal: Reports: no symptoms. Genitourinary: Reports: no symptoms. Musculoskeletal: Reports: see HPI. Skin: Reports: no symptoms. Neurological/Psychological: Reports: no symptoms. Hematologic/Endocrine: Reports: no symptoms. Immunological: Reports: no symptoms. All Other Systems: Reviewed and Negative (DAVION CAPELLAN) Physical Exam Physical Exam General Appearance: well developed/nourished, mild distress Head: atraumatic Eyes: Bilateral: normal appearance. Ears, Nose, Throat: normal ENT inspection, hearing grossly normal Neck: normal inspection Cardiovascular/Respiratory: no respiratory distress Back: normal inspection Hip Left: soft tissue tenderness, limited range of motion Neurologic/Tendon: normal sensation, normal motor functions, normal tendon functions, responds to pain, no evidence tendon injury, no pulse deficit Skin: intact, normal color, warm/dry Lymphatic: no anterior cervical ilir (DAVION CAPELLAN) Progress Differential Diagnosis: contusion, dislocation, fracture, gout, septic arthritis , sprain, MUSCLE STRAIN Plan of Care: Orders Procedure Date/time Status Durable Medical Equipment 11/24 1500 Active Diagnostic Imaging: Viewed by Me: Radiology Read. Discussed w/RAD: Radiology Read. Comments: SERVICE DATE: 11/24/16 EXAM TYPE: RAD - XRY-HIP 2-3 VIEWS, LEFT EXAMINATION: XR HIP, LEFT CLINICAL INFORMATION: Left hip pain after fall today. COMPARISON: 12/18/2012 TECHNIQUE: Two views of the left hip. FINDINGS: The visualized left pelvic bones are intact. There is normal alignment at the femoroacetabular joint. There is mild narrowing of superomedial joint space and marginal osteophyte formation. An old femoral neck fracture is healed and the three femoral neck fixation screws are intact. IMPRESSION: 1. No acute osseous injury. 2. Mild osteoarthritis of the left hip. 3. Old, healed femoral neck fracture. DICTATED BY: GLORY RUIZ MD DATE/TIME DICTATED:11/24/161436 CASTING ROOM HELPER:TUAN DATE/TIME TRANSCRIBED:11/24/161436 (DAVION CAPELLAN) Departure Departure Disposition: HOME OR SELF CARE Condition: Stable Clinical Impression Primary Impression: Strain of left hip Referrals: FÉLIX SWIFT MD (PCP/Family) Additional Instructions: Take Percocet and Flexeril as prescribed. Follow-up with orthopedic if not better in 3-5 days. Follow-up with primary care doctor. Return if any concerns. Please go over all results of today's visit with your primary care doctor. Contact your primary care doctor to let them know you were here in the emergency room. There may be nonspecific findings which may not be related to your visit today here in the emergency room but may require further evaluation and chronic monitoring by your primary care doctor. If you had a laceration today the chance of foreign body always remains. You should follow-up with your primary care doctor for recheck in 3-5 days for a wound check. If you had an x-ray done there is a chance that a fracture could have been missed on initial read and you should follow-up with your primary care doctor for repeat x-rays if symptoms persist. If your blood pressure was elevated here in the emergency room please have rechecked by her primary care doctor within the next 48 hours by your primary care doctor. If you were prescribed a narcotic here in the emergency room or any type of controlled substances you're not allowed to drive while taking this medication or operate any type of heavy machinery. Narcotics can make you feel lightheaded dizziness nausea and can cause constipation. You may need to order picker/assembler a stool softener. Thank you for choosing [facility] emergency room. Please return to the emergency room immediately if you have any other concerns worsening of symptoms. Departure Forms: Customer Survey General Discharge Information Prescriptions: Current Visit Scripts Oxycodone HCl/Acetaminophen (Percocet 5-325 MG Tablet) 1-2 TAB PO Q6P PRN pain #15 TAB Cyclobenzaprine HCl 1 TAB PO TID #20 TAB Cyclobenzaprine HCl 1 TAB PO TID #20 TAB Comments 11/24/2016 4:03:36 PM (DAVION CAPELLAN) PA/MEDICAL FRONT DESK SPECIALIST Co-Sign Statement Statement: ED Attending supervision documentation- [] I saw and evaluated the patient. I have also reviewed all the pertinent lab results and diagnostic results. I agree with the findings and the plan of care as documented in the PA's/MEDICAL FRONT DESK SPECIALIST's documentation. [x I have reviewed the ED Record and agree with the PA's/MEDICAL FRONT DESK SPECIALIST's documentation. [] Additions or exceptions (if any) to the PAs/MEDICAL FRONT DESK SPECIALIST's note and plan are summarized below: [] (MELISSA BENITEZ DO)
--- NOTE | 2016-11-24 14:43 | RADIOLOGY REPORT ---
EXAMINATION: XR HIP, LEFT CLINICAL INFORMATION: Left hip pain after fall today. COMPARISON: 12/18/2012 TECHNIQUE: Two views of the left hip. FINDINGS: The visualized left pelvic bones are intact. There is normal alignment at the femoroacetabular joint. There is mild narrowing of superomedial joint space and marginal osteophyte formation. An old femoral neck fracture is healed and the three femoral neck fixation screws are intact. IMPRESSION: 1. No acute osseous injury. 2. Mild osteoarthritis of the left hip. 3. Old, healed femoral neck fracture.
[2016-11-24] MEDS ORDERED: PERCOCET 5-3251 EACH PO ×2 (14:55→14:57)
[2016-11-24] MEDS ORDERED: CYCLOBENZAPRINE10 M1 PO ×3 (14:55→14:59)
[2016-11-24 15:27] VITALS: BP 115/72
== END 2016-11-24 15:28 ==
LOC: ERH 13:15
DX: S76.012A Strain of muscle, fascia and tendon of left hip, initial encounter (principal); W19.XXXA Unspecified fall, initial encounter; Y93.H1 Activity, digging, shoveling and raking
CPT/HCPCS: 73502-LT

== ENCOUNTER 2016-11-30 19:09 | Emergency (ER) | payer OTHER ==
[~2016-11-30] VITALS: Ht 172.7 cm; Wt 72.6 kg
[~2016-11-30 19:09] MED LIST changes: +CYCLOBENZAPRINE10 M1 PO
--- NOTE | 2016-11-30 19:25 | ED UPPER/LOWER EXTREMITY COMPL ---
History of Present Illness General Chief Complaint: Lower Extremity Injury Stated Complaint: S/P FALL LEFT HIP PAIN Source: patient Exam Limitations: no limitations Vital Signs & Intake/Output Vital Signs & Intake/Output Vital Signs Date Time Temp Pulse Resp B/P Pulse O2 O2 Flow FiO2 Ox Delivery Rate 12/01 2043 98.2 102 19 115/68 95 Room Air 11/30 1916 98.3 100 20 116/77 96 Room Air Allergies Coded Allergies: Penicillins (Intermediate, GI UPSET 11/07/16) Reconcile Medications Escitalopram Oxalate 10 MG TABLET 1 TAB PO DAILY MENTAL HEALTH (Reported) Lisinopril 10 MG TABLET 1 TAB PO DAILY BP (Reported) Multivitamin (One Daily Multivitamin) 1 EACH TABLET 1 TAB PO DAILY SUPPLEMENT (Reported) Naproxen Sodium (Aleve) 220 MG CAPSULE 2 CAP PO PRN PAIN/INFLAMMATION ( Reported) Oxycodone HCl/Acetaminophen (Percocet 5-325 MG Tablet) 5 MG-325 MG TABLET 1 TAB PO BID pain Triage Note: RECEIVED 51 YO FEMALE C/O SLIPPED AND FELL ON LEFT UPPER LEG, PT REPORTS PAIN RADIATES FROM LEFT HIP DOWN LEFT LEG. PT REPORTS NUMBNESS FROM LEFT KNEE DOWN. PT REPORTS UNABLE TO WEIGHT BEAR ON LEFT LEG. Triage Nurses Notes Reviewed? yes Onset: Abrupt Duration: hour(s):, constant, continues in ED Timing: recent history Severity: moderate, severe Pain/Injury Location: Left: Hip, Leg. Method of Injury: fall No Modifying Factors: none HPI: 51-year-old female comes into emergency room for further evaluation of left hip pain down to her knee. Patient reports that she slipped today in the bathroom and fell on her left side. Denies any loss of consciousness. Denies any headache and neck pain chest pain or injury anywhere else on her body. Patient reports that it feels numb in her leg. Patient has a history of complete left hip. (DAVION CAPELLAN) Past History Travel History Traveled to [place] past 21 day No Medical History Any Pertinent Medical History? see below for history Neurological: NONE EENT: NONE Cardiovascular: hypertension Respiratory: NONE Gastrointestinal: GERD, pancreatitis Hepatic: cholelithiasis Renal: NONE Musculoskeletal: fracture, sciatica, L HIP FX Psychiatric: NONE Endocrine: NONE Blood Disorders: NONE Cancer(s): NONE MANAGER COLLEGE/Reproductive: NONE History of MRSA: No History of VRE: No History of CDIFF: No Surgical History Surgical History: cholecystectomy, tubal ligation, LEFT HIP FX, Psychosocial History Who do you live with Significant Other Services at Home None What is your primary language Bengali Tobacco Use: Current Daily Use Daily Tobacco Use Amount/Type: => 5 Cigarettes daily Family History Family History, If Any: MOTHER Acute pancreatitis FATHER FH: diabetes mellitus FH: heart attack FH: stroke Hx Contributory? No (DAVION CAPELLAN) Review of Systems Review of Systems Constitutional: Reports: no symptoms. EENTM: Reports: no symptoms. Respiratory: Reports: no symptoms. Cardiovascular: Reports: no symptoms. Gastrointestinal/Abdominal: Reports: no symptoms. Genitourinary: Reports: no symptoms. Musculoskeletal: Reports: see HPI. Skin: Reports: no symptoms. Neurological/Psychological: Reports: no symptoms. Hematologic/Endocrine: Reports: no symptoms. Immunological: Reports: no symptoms. All Other Systems: Reviewed and Negative (DAVION CAPELLAN) Physical Exam Physical Exam General Appearance: well developed/nourished, mild distress Head: atraumatic Eyes: Bilateral: normal appearance. Ears, Nose, Throat: normal ENT inspection, hearing grossly normal Neck: normal inspection Cardiovascular/Respiratory: no respiratory distress Back: normal inspection Hip Left: soft tissue tenderness, limited range of motion Knee Left: limited range of motion Foot Left: normal inspection, normal range of motion Neurologic/Tendon: normal motor functions, normal tendon functions, responds to pain, no evidence tendon injury, no pulse deficit, decreasedsensation left lower extremity Skin: intact, normal color, warm/dry Lymphatic: no anterior cervical ilir (DAVION CAPELLAN) Progress Differential Diagnosis: contusion, dislocation, fracture, gout, septic arthritis , sprain, tendon injury Plan of Care: Orders Procedure Date/time Status XRY-KNEE COMPLETE LEFT 12/01 1923 Active XRY-HIP 2-3 VIEWS, LEFT 12/01 1923 Active Diagnostic Imaging: Viewed by Me: Radiology Read. Discussed w/RAD: Radiology Read. Radiology Impression: SERVICE DATE: 11/30/16-1923 EXAM TYPE: RAD - XRY-KNEE COMPLETE LEFT EXAMINATION: XR KNEE, LEFT CLINICAL INFORMATION: Fall, pain COMPARISON: None TECHNIQUE: Four views of the left knee. FINDINGS: Osseous alignment is anatomic. No acute fracture is seen. Joint spaces are relatively well-preserved. No significant effusion. IMPRESSION: No acute findings., SERVICE DATE: 11/30/16 EXAM TYPE: RAD - XRY-HIP 2-3 VIEWS, LEFT EXAMINATION : XR HIP, LEFT CLINICAL INFORMATION: Fall, pain COMPARISON: None TECHNIQUE: Two views of the left hip. FINDINGS: Alignment across the hip is anatomic, with mild degenerative change again noted. There is a redemonstrated healed femoral neck fracture, with 3 fixation screws in stable appearing position compared to prior. No new acute findings are seen. IMPRESSION: No acute findings identified. Redemonstrated postsurgical changes of the proximal left femur. DICTATED BY: JAMES INIGUEZ MD DATE/TIME DICTATED:11/30/162021 Comments: 11/30/2016 8:58:23 PM Mechanical fall. Patient clinically looks well. Nontoxic-appearing. In no apparent distress. Follow-up with primary care doctor. Return if any concerns worsening symptoms. (RAFIQ HAWLEY,DAVION) Departure Departure Disposition: HOME OR SELF CARE Condition: Stable Clinical Impression Primary Impression: Strain of left hip Referrals: FÉLIX SWIFT MD (PCP/Family) Additional Instructions: Take Percocet as needed for pain. Follow-up with orthopedic doctor. Return if any concerns worsening symptoms. Please go over all results of today's visit with your primary care doctor. Contact your primary care doctor to let them know you were here in the emergency room. There may be nonspecific findings which may not be related to your visit today here in the emergency room but may require further evaluation and chronic monitoring by your primary care doctor. If you had a laceration today the chance of foreign body always remains. You should follow-up with your primary care doctor for recheck in 3-5 days for a wound check. If you had an x-ray done there is a chance that a fracture could have been missed on initial read and you should follow-up with your primary care doctor for repeat x-rays if symptoms persist. If your blood pressure was elevated here in the emergency room please have rechecked by her primary care doctor within the next 48 hours by your primary care doctor. If you were prescribed a narcotic here in the emergency room or any type of controlled substances you're not allowed to drive while taking this medication or operate any type of heavy machinery. Narcotics can make you feel lightheaded dizziness nausea and can cause constipation. You may need to cotton picker a stool softener. Thank you for choosing [facility] emergency room. Please return to the emergency room immediately if you have any other concerns worsening of symptoms. Departure Forms: Customer Survey General Discharge Information Prescriptions: Current Visit Scripts Oxycodone HCl/Acetaminophen (Percocet 5-325 MG Tablet) 1 TAB PO BID #10 TAB (DAVION CAPELLAN) PA/SERVICE DELIVERY ANALYST Co-Sign Statement Statement: ED Attending supervision documentation- [] I saw and evaluated the patient. I have also reviewed all the pertinent lab results and diagnostic results. I agree with the findings and the plan of care as documented in the PA's/SERVICE DELIVERY ANALYST's documentation. [X] I have reviewed the ED Record and agree with the PA's/SERVICE DELIVERY ANALYST's documentation. [] Additions or exceptions (if any) to the PAs/SERVICE DELIVERY ANALYST's note and plan are summarized below: [] (BLAINE CLAYTON,MARCEL Bautista)
[2016-11-30] MEDS ORDERED: ALEVE220 M1 PO (19:50)
--- NOTE | 2016-11-30 20:32 | RADIOLOGY REPORT ---
EXAMINATION: XR HIP, LEFT CLINICAL INFORMATION: Fall, pain COMPARISON: None TECHNIQUE: Two views of the left hip. FINDINGS: Alignment across the hip is anatomic, with mild degenerative change again noted. There is a redemonstrated healed femoral neck fracture, with 3 fixation screws in stable appearing position compared to prior. No new acute findings are seen. IMPRESSION: No acute findings identified. Redemonstrated postsurgical changes of the proximal left femur.
--- NOTE | 2016-11-30 20:33 | RADIOLOGY REPORT ---
EXAMINATION: XR KNEE, LEFT CLINICAL INFORMATION: Fall, pain COMPARISON: None TECHNIQUE: Four views of the left knee. FINDINGS: Osseous alignment is anatomic. No acute fracture is seen. Joint spaces are relatively well-preserved. No significant effusion. IMPRESSION: No acute findings.
[2016-11-30] MEDS ORDERED: PERCOCET 5-3251 EACH PO (20:40)
[2016-11-30 20:44] VITALS: BP 115/68
== END 2016-11-30 20:59 ==
LOC: ERH 19:09
DX: S76.012A Strain of muscle, fascia and tendon of left hip, initial encounter (principal); W01.0XXA Fall on same level from slipping, tripping and stumbling without subsequent striking against object, initial encounter; Y92.002 Bathroom of unspecified non-institutional (private) residence as the place of occurrence of the external cause; Y93.9 Activity, unspecified
CPT/HCPCS: 73502-LT; 73562-LT

== ENCOUNTER 2017-03-12 16:18 | Emergency (ER) | payer OTHER ==
[~2017-03-12] VITALS: Ht 172.7 cm; Wt 74.8 kg
[~2017-03-12 16:18] MED LIST changes: +ALEVE220 M1 PO
--- NOTE | 2017-03-12 16:43 | ED HEAD/FACIAL INJ COMPLAINT ---
History of Present Illness General Chief Complaint: Fall Stated Complaint: BIBA WITH A FALL Source: patient Exam Limitations: no limitations, unable to give history Vital Signs & Intake/Output Vital Signs & Intake/Output Vital Signs Date Time Temp Pulse Resp B/P B/P Pulse O2 O2 Flow FiO2 Mean Ox Delivery Rate 03/12 1827 97.5 83 18 112/73 98 03/12 1628 98.0 80 16 118/63 94 Room Air Allergies Coded Allergies: Penicillins (Intermediate, GI UPSET 11/07/16) Reconcile Medications Multivitamin (One Daily Multivitamin) 1 EACH TABLET 1 TAB PO DAILY SUPPLEMENT (Reported) Triage Note: BIBA FOR C/O STANDING ON A CHAIR, FALLING OFF AND LANDING ON THE CONCRETE. PT ADMITS TO DRINKING HALF A BOTTLE OF WHITE WINE. REPORTS HIT BACK OF HER HEAD ON CONCRETE. DENIES LOC OR BEING ON BLOOD THINNERS. 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 PT A&OX4, IN NAD UPON ARRIVAL. Triage Nurses Notes Reviewed? yes HPI: Patient was drinking while sitting on her front porch. Patient then fell off of her chair and hit her head on her porch. There was no loss of consciousness. Patient denies any headache or blurry vision. Positive bleeding. Patient denies any nausea or vomiting. Patient denies any other injury. Past History Travel History Traveled to [place] past 21 day No Medical History Any Pertinent Medical History? 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 No Review of Systems Review of Systems Constitutional: Reports: no symptoms. EENTM: Reports: no symptoms. Respiratory: Reports: no symptoms. Cardiovascular: Reports: no symptoms. GI: Reports: no symptoms. Genitourinary: Reports: no symptoms. Musculoskeletal: Reports: no symptoms. Skin: Reports: no symptoms. Neurological/Psychological: Reports: see HPI. Hematologic/Endocrine: Reports: no symptoms. Immunologic/Allergic: Reports: no symptoms. All Other Systems: Reviewed and Negative Physical Exam Physical Exam General Appearance: well developed/nourished, alert, awake, mild distress Head: ABRASIONS, NO DEFINITIVE LACERATION Eyes: Bilateral: PERRL, EOMI. Ears, Nose, Throat: normal pharynx, normal ENT inspection, hearing grossly normal Neck: normal inspection, supple Respiratory: normal breath sounds Cardiovascular: regular rate/rhythm Gastrointestinal: soft, non-tender Back: normal inspection Extremities: normal inspection, normal range of motion, no edema Psychiatric: awake, alert, oriented x 3 Cranial Nerves: normal hearing, normal speech, PERRL Coordination/Gait: normal finger to nose Motor/Sensory: no motor/sensory deficits Skin: intact, normal color, warm/dry Lymphatic: no anterior cervical ilir Progress Differential Diagnosis: c-spine injury, ICH, skull fracture Plan of Care: Orders Procedure Date/time Status CT HEAD WO IV CONTRAST 03/[address] CERV SPINE WO IV CONTRAST 03/12 1642 Active Diagnostic Imaging: Viewed by Me: CT Scan. Discussed w/RAD: CT Scan. Radiology Impression: PATIENT: LOBITO STILES PRESENT AGE: 51 PATIENT ACCOUNT NO: [id number] : 67 LOCATION: [facility] ORDERING PHYSICIAN: JOHANNA LEBRON MD SERVICE DATE: 03/12/17 EXAM TYPE: CAT - CT CERV SPINE WO IV CONTRAST; CT HEAD WO IV CONTRAST EXAMINATION: CT HEAD WITHOUT CONTRAST CLINICAL INFORMATION: Fall, head trauma COMPARISON: [address] scan TECHNIQUE: Contiguous axial imaging was performed from the skull base to vertex without intravenous administration of contrast. In addition , helical noncontrast CT imaging was acquired through the cervical spine and source images were reviewed along with axial reconstructions and sagittal and coronal MPRs. DLP: 1006.48 mGy-cm. FINDINGS: CT HEAD: There is moderate soft tissue swelling and trace amount of soft tissue emphysema in the right posterior parietal region. It extends over an area of 3.6 cm in transverse diameter and measures 1.4 cm in thickness. No associated skull fracture. There is no evidence of acute intracranial hemorrhage or territorial infarction. No abnormal mass effect or midline shift is seen. Mckeon to white matter differentiation is well preserved. No extra-axial fluid collections are identified. The ventricles are normal in size. There is a 0.4 cm hypodensity within the left basal ganglia, could represent an old small lacunar infarct. The mastoid air cells and visualized portions of the paranasal sinuses are well aerated. CT CERVICAL SPINE : The vertebral body height and alignment of the cervical spine are within normal limits. Mild straightening of the cervical spine with loss of normal lordotic curvature can be positional or due to muscle spasm. Clinical correlation is suggested. The intervertebral disc spaces are preserved. The posterior elements are intact. No acute fracture or dislocation of the cervical spine. The cervicothoracic and cervical cranial junctions are unremarkable. The paraspinal soft tissues are unremarkable. The lung apices are clear without pneumothorax. IMPRESSION: Right parietal soft tissue swelling/hematoma and emphysema without skull fracture or intracranial hemorrhage. No acute fracture or dislocation of the cervical spine. DICTATED BY: MEKA DUMONT MD DATE/TIME DICTATED:03/12/171799 MANAGER RESOURCE:TUAN DATE/TIME TRANSCRIBED:1799 CONFIDENTIAL, DO NOT COPY WITHOUT APPROPRIATE AUTHORIZATION. < Electronically signed in Other Vendor System> SIGNED BY: MEKA DUMONT MD 03/12/171815 Departure Departure Disposition: HOME OR SELF CARE Condition: Stable Clinical Impression Primary Impression: Head injury Secondary Impressions: Alcohol intoxication Referrals: FÉLIX SWIFT MD (PCP/Family) Additional Instructions: RETURN FOR ANY CONCERNS Departure Forms: Customer Survey General Discharge Information
--- NOTE | 2017-03-12 18:16 | CT SCAN REPORT ---
EXAMINATION: CT HEAD WITHOUT CONTRAST CLINICAL INFORMATION: Fall, head trauma COMPARISON: 07/31/[address] scan TECHNIQUE: Contiguous axial imaging was performed from the skull base to vertex without intravenous administration of contrast. In addition, helical noncontrast CT imaging was acquired through the cervical spine and source images were reviewed along with axial reconstructions and sagittal and coronal MPRs. DLP: 1006.48 mGy-cm. FINDINGS: CT HEAD: There is moderate soft tissue swelling and trace amount of soft tissue emphysema in the right posterior parietal region. It extends over an area of 3.6 cm in transverse diameter and measures 1.4 cm in thickness. No associated skull fracture. There is no evidence of acute intracranial hemorrhage or territorial infarction. No abnormal mass effect or midline shift is seen. Mckeon to white matter differentiation is well preserved. No extra-axial fluid collections are identified. The ventricles are normal in size. There is a 0.4 cm hypodensity within the left basal ganglia, could represent an old small lacunar infarct. The mastoid air cells and visualized portions of the paranasal sinuses are well aerated. CT CERVICAL SPINE: The vertebral body height and alignment of the cervical spine are within normal limits. Mild straightening of the cervical spine with loss of normal lordotic curvature can be positional or due to muscle spasm. Clinical correlation is suggested. The intervertebral disc spaces are preserved. The posterior elements are intact. No acute fracture or dislocation of the cervical spine. The cervicothoracic and cervical cranial junctions are unremarkable. The paraspinal soft tissues are unremarkable. The lung apices are clear without pneumothorax. IMPRESSION: Right parietal soft tissue swelling/hematoma and emphysema without skull fracture or intracranial hemorrhage. No acute fracture or dislocation of the cervical spine.
[2017-03-12 18:27] VITALS: BP 112/73
== END 2017-03-12 19:17 ==
LOC: ERH 16:18
DX: S09.90XA Unspecified injury of head, initial encounter (principal); F10.129 Alcohol abuse with intoxication, unspecified; W07.XXXA Fall from chair, initial encounter; Y92.018 Other place in single-family (private) house as the place of occurrence of the external cause; Y93.9 Activity, unspecified

== ENCOUNTER 2017-04-05 19:29 | Emergency (ER) | payer OTHER ==
[~2017-04-05] VITALS: Ht 172.7 cm; Wt 72.6 kg
--- NOTE | 2017-04-05 20:22 | ED CARDIAC/CP/PALPITATIONS ---
History of Present Illness General Chief Complaint: Chest Pain Stated Complaint: CP/SOB Source: patient Exam Limitations: no limitations Vital Signs & Intake/Output Vital Signs & Intake/Output Vital Signs Date Time Temp Pulse Resp B/P B/P Pulse O2 O2 Flow FiO2 Mean Ox Delivery Rate 04/056 98.1 74 16 128/75 99 Room Air 04/05 2023 Room Air 04/05 1942 97.7 85 18 103/73 96 Room Air ED Intake and Output 04/06 0000 04/05 1200 Intake Total 180 Output Total Balance 180 Intake, Oral 180 Patient 160 lb Weight Weight Reported by Patient Measurement Method Allergies Coded Allergies: Penicillins (Intermediate, GI UPSET 11/07/16) Reconcile Medications Multivitamin (One Daily Multivitamin) 1 EACH TABLET 1 TAB PO DAILY SUPPLEMENT (Reported) Triage Note: PT TO ED C/O CENTER CHEST PAIN THAT WRAPS TO BACK FOR 2 DAYS, WORSE SINCE WAKING UP FROM NAP AN HOUR AGO. STATES PICKED UP A GRILL A COUPLE OF DAYS AGO, WENT TO WALK IN YESTERDAY BECAUSE OF THE PAIN, WAS TOLD IT WAS A PULLED MUSCLE. WAS GIVEN 800 MG IBUPROFIN, LAST DOSE 4 HRS AGO. PAIN WORSE WITH INSPIRATION AND ON PALPATION TO CHEST. STATES "i thought it might be my acid reflux so i took prilosec" no relief with prilosec. felt sob, even at rest, worse today. "i used my boyfriend's nebulizer" with some relief. is 1/2 ppd smoker Triage Nurses Notes Reviewed? yes Onset: Abrupt Duration: day(s): (2), constant, continues in ED Timing: recent history Location: central Radiation: no radiation Activities at Onset: none HPI: 51-year-old female comes into emergency room complains of central chest pain is been going on for past few days continuously. Pain is sharp. Wraps around her chest. Radiates down her left arm. Some associated shortness of breath. Denies any diaphoresis or vomiting. She's a daily smoker. She reports that she first noticed the pain after some heavy lifting. Pain is worse with certain movements. Nothing seems to make the symptoms better. She comes in for further evaluation. (RAFIQ HAWLEY,DAVION) Past History Travel History Traveled to [place] past 21 day No Medical History Any Pertinent Medical History? 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 History of MRSA: No History of VRE: No History of CDIFF: No Surgical History Surgical History: cholecystectomy, tubal ligation, LEFT HIP FX, Psychosocial History Who do you live with Significant Other Services at Home None What is your primary language Bangladeshi Tobacco Use: Current Daily Use Daily Tobacco Use Amount/Type: => 5 Cigarettes daily ETOH Use: occasional use Illicit Drug Use: denies illicit drug use Family History Comment: heart problems but patient cant remember Family History, If Any: MOTHER Acute pancreatitis FATHER FH: diabetes mellitus FH: heart attack FH: stroke Hx Contributory? Yes (DAVION CAPELLAN) Review of Systems Review of Systems Constitutional: Reports: no symptoms. EENTM: Reports: no symptoms. Respiratory: Reports: see HPI. Cardiovascular: Reports: see HPI. GI: Reports: no symptoms. Genitourinary: Reports: no symptoms. Musculoskeletal: Reports: no symptoms. Skin: Reports: no symptoms. Neurological/Psychological: Reports: no symptoms. Hematologic/Endocrine: Reports: no symptoms. Immunologic/Allergic: Reports: no symptoms. All Other Systems: Reviewed and Negative (DAVION CAPELLAN) Physical Exam Physical Exam General Appearance: well developed/nourished, no apparent distress, alert Head: atraumatic Eyes: Bilateral: normal appearance. Ears, Nose, Throat: normal pharynx, normal ENT inspection Neck: normal inspection Respiratory: normal breath sounds, no respiratory distress, chest walltenderness Cardiovascular: regular rate/rhythm Gastrointestinal: soft Back: normal inspection Extremities: normal inspection, normal range of motion Neurologic/Psych: awake, alert, oriented x 3 Skin: intact, normal color Core Measures ACS in differential dx? Yes Severe Sepsis Present: No Septic Shock Present: No All Positive = PERC Ruled Out: Positive: age < 50 years, heart rate < 100 bpm, O2 sat > 94%, no hemoptysis, no hormone use, no prior DVT or PE, no unilateral leg swellin, no surgery/trauma w/ in 4w. Wells Criteria Score: 0 (DAVION CAPELLAN) Progress Differential Diagnosis: AMI, aortic dissection, atrial fibrillation, costochondritis, hyperkalemia, hypovolemia, hyperthyroid, hyperventilation, myocarditis, pancreatitis, pericarditis, pneumonia, pneumothorax, pulmonary embolism, PUD/GERD, respiratory failure, rib fracture, sepsis, unstable angina, V-fib/V-Tach Plan of Care: Orders Procedure Date/time Status TROPONIN LEVEL 04/05 2310 Complete EKG 04/05 2310 Active Add-on Test (ER Only) 04/05 2140 Active Add-on Test (ER Only) 04/05 2015 Active LIPASE 04/05 2013 Complete D-DIMER 04/05 2013 Complete AMYLASE 04/05 2013 Complete Telemetry/Inorganic Chemist 04/05 1952 Active TROPONIN LEVEL 04/05 1951 Complete HUMAN BETA HCG SCREEN 04/05 1951 Complete COMPREHENSIVE METABOLIC PANEL 04/05 1951 Complete CBC WITHOUT DIFFERENTIAL 04/05 1951 Complete EKG 04/05 1931 Active Laboratory Tests 04/05/17 2248: Troponin I 0.02 04/05/172012: Anion Gap 14, Estimated GFR > 60, BUN/Creatinine Ratio 18.6, Glucose 125 H, Calcium 9.3, Total Bilirubin 0.3, AST 25, ALT 33, Alkaline Phosphatase 75, Troponin I < 0.01, Total Protein 6.7, Albumin 4.2, Globulin 2.5, Albumin/ Globulin Ratio 1.7, Amylase 46, Lipase 153, Total Beta HCG NEGATIVE, D-Dimer High Sensitivty < 200, CBC w Diff NO MAN DIFF REQ, RBC 4.29, MCV 93.8, MCH 31.8 H, RDW 14.7 H, MPV 9.3, Gran % 62.9, Lymphocytes % 27.1, Monocytes % 4.9, Eosinophils % 4.6, Basophils % 0.5, Absolute Granulocytes 4.9, Absolute Lymphocytes 2.1, Absolute Monocytes 0.4, Absolute Eosinophils 0.4, Absolute Basophils 0, PUBS MCHC 33.9 Diagnostic Imaging: Viewed by Me: Radiology Read. Discussed w/RAD: Radiology Read. Radiology Impression: PATIENT: LOBITO STILES PRESENT AGE: 51 PATIENT ACCOUNT NO: [id number] : 67 LOCATION: [facility] ORDERING PHYSICIAN: DAVION HAWLEY SERVICE DATE: 04/05/17 EXAM TYPE : RAD - XRY-CHEST XRAY, PA AND LATERAL EXAMINATION: XR CHEST CLINICAL INFORMATION: Chest pain. COMPARISON: Portable chest x-ray 10/07/2016 TECHNIQUE: AP and lateral views of the chest are provided. FINDINGS: The cardiomediastinal silhouette is unremarkable. The lungs and pleural spaces appear clear without evidence of congestion, consolidation, or significant appearing effusion or atelectasis. There is no evidence of pneumothorax or pulmonary edema. Included osseous structures appear largely unremarkable. Upper abdominal surgical clips suggest previous cholecystectomy. IMPRESSION: No evidence of an acute intrathoracic process. DICTATED BY: DARREN SCHMITZ MD DATE/TIME DICTATED:04/05 FINGERNAIL FORMER:TUAN DATE/TIME TRANSCRIBED:04/05/172041 CONFIDENTIAL, DO NOT COPY WITHOUT APPROPRIATE AUTHORIZATION. <Electronically signed in Other Vendor System> SIGNED BY: DARREN SCHMITZ MD 04/05/172046 Initial ED EKG: normal p-waves, normal QRS complex, normal sinus rhythm, rate ( 81) Prior EKG: unchanged Repeat EKG: changed (v3 t wave inversion) Comments: Patient felt significant better after portable. Chest pain is resolved. Second troponin negative. Some mild borderline T-wave abnormalities. Case discussed with Dr. Vergara and EKG reviewed with Dr. Vergara. Low suspicion for any cardiac event. D-dimer negative. Return if any concerns worsening symptoms. (RAFIQ HAWLEY,DAVION) Departure Departure Disposition: HOME OR SELF CARE Condition: Stable Clinical Impression Primary Impression: Chest pain Referrals: FÉLIX SWIFT MD (PCP/Family) Additional Instructions: Please go over all results of today's visit with your primary care doctor. Contact your primary care doctor to let them know you were here in the emergency room. There may be nonspecific findings which may not be related to your visit today here in the emergency room but may require further evaluation and chronic monitoring by your primary care doctor. If you had a laceration today the chance of foreign body always remains. You should follow-up with your primary care doctor for recheck in 3-5 days for a wound check. If you had an x-ray done there is a chance that a fracture could have been missed on initial read and you should follow-up with your primary care doctor for repeat x-rays if symptoms persist. If your blood pressure was elevated here in the emergency room please have rechecked by her primary care doctor within the next 48 hours by your primary care doctor. If you were prescribed a narcotic here in the emergency room or any type of controlled substances you're not allowed to drive while taking this medication or operate any type of heavy machinery. Narcotics can make you feel lightheaded dizziness nausea and can cause constipation. You may need to picker feeder a stool softener. Thank you for choosing [facility] emergency room. Please return to the emergency room immediately if you have any other concerns worsening of symptoms. Departure Forms: Customer Survey General Discharge Information (DAVION CAPELLAN) PA/SAP BW BI DEVELOPER Co-Sign Statement Statement: ED Attending supervision documentation- [X] I saw and evaluated the patient. I have also reviewed all the pertinent lab results and diagnostic results. I agree with the findings and the plan of care as documented in the PA's/SAP BW BI DEVELOPER's documentation. [X] I have reviewed the ED Record and agree with the PA's/SAP BW BI DEVELOPER's documentation. [] Additions or exceptions (if any) to the PAs/SAP BW BI DEVELOPER's note and plan are summarized below: [] (BERNARDINO CLAYTON,JOHANNA Crum) Critical Care Note Critical Care Note Critical Care Time: non-applicable (DAVION CAPELLAN)
[2017-04-05 20:41] LABS: ABSOLUTE BASOPHIL COUNT 0 /CUMM (0.0-0.2); ABSOLUTE EOSINOPHIL COUNT 0.4 /CUMM (0.0-0.7); ABSOLUTE GRANULOCYTE CT 4.9 /CUMM (1.4-6.5); ABSOLUTE LYMPH COUNT 2.1 /CUMM (1.2-3.4); ABSOLUTE MONOCYTE COUNT 0.4 /CUMM (0.10-0.60); BASOPHIL % 0.5 % (0.0-2.0); EOSINOPHIL % 4.6 % (0-5); GRANULOCYTE % 62.9 % (42.2-75.2); HEMATOCRIT 40.2 % (37-47); MEAN CORPUSCULAR HGB 31.8 PG (27.0-31.0); MEAN CORPUSCULAR HGB CONC 33.9 G/DL (33.0-37.0); MEAN CORPUSCULAR VOLUME 93.8 FL (81.0-99.0); MEAN PLATELET VOLUME 9.3 FL (7.4-10.4); PLATELET COUNT 206 /CUMM (130-400); RBC DISTRIBUTION WIDTH 14.7 % (11.5-14.5); RED BLOOD CELL CT 4.29 /CUMM (4.20-5.40); WHITE BLOOD CELL COUNT 7.8 /CUMM (4.8-10.8)
--- NOTE | 2017-04-05 20:47 | RADIOLOGY REPORT ---
EXAMINATION: XR CHEST CLINICAL INFORMATION: Chest pain. COMPARISON: Portable chest x-ray 10/07/2016 TECHNIQUE: AP and lateral views of the chest are provided. FINDINGS: The cardiomediastinal silhouette is unremarkable. The lungs and pleural spaces appear clear without evidence of congestion, consolidation, or significant appearing effusion or atelectasis. There is no evidence of pneumothorax or pulmonary edema. Included osseous structures appear largely unremarkable. Upper abdominal surgical clips suggest previous cholecystectomy. IMPRESSION: No evidence of an acute intrathoracic process.
[2017-04-06 00:29] VITALS: BP 101/362
== END 2017-04-06 01:02 ==
LOC: ERH 19:29
PROVIDERS: Physician Assistant Medical
DX: R07.9 Chest pain, unspecified (principal); I10 Essential (primary) hypertension; Z72.0 Tobacco use
CPT/HCPCS: 93005; 93010; 96372; J1885

== ENCOUNTER 2017-10-05 08:21 | Inpatient (IN) | payer OTHER ==
[~2017-10-05] VITALS: Ht 172.7 cm; Wt 74.4 kg
[~2017-10-05 08:21] MED LIST changes: +ACAMPROSATE CA333 M1 PO; +MOBIC15 M1 PO; +OMEPRAZOLE40 M1 PO
--- NOTE | 2017-10-05 09:04 | ED GI/GU/ABDOMINAL COMPLAINT ---
History of Present Illness General Chief Complaint: Abdominal Pain/Flank Pain Stated Complaint: ABD PAIN +V Source: patient, old records Exam Limitations: no limitations Vital Signs & Intake/Output Vital Signs & Intake/Output Vital Signs Date Time Temp Pulse Resp B/P B/P Pulse O2 O2 Flow FiO2 Mean Ox Delivery Rate 10/05 1404 98.3 77 20 168/96 10/05 1318 98.3 77 20 168/96 95 Room Air 10/05 1140 98.0 90 18 200/100 10/05 1115 98.0 90 18 200/100 98 Room Air 10/05 0822 98.2 106 18 162/88 98 Room Air Triage Note: 52 YO FEMALE TO TRAIGE C/O ABD PAIN AND +NV. STATES HX OF PANCREATITIS BUT "I STOPPED DRINKING" STATES SHE ATE A ROAST LAST PM WITH ALOT OF FAT ON IT AND STATES SINE THEN THE PAIN STARTED. DENIES URIANRY S/S. Triage Nurses Notes Reviewed? yes ? n Is pt currently ? No Onset: Gradual Duration: hour(s): (6) Timing: recent history Quality/Severity: cramping, sharpness, severe Severity Numbers: 10 Location: epigastric Radiation: no radiation Activities at Onset: after eating a pork roast Prior Abdominal Problems: similar symptoms Past Sexual History: Unobtainable at this time Modifying Factors: Worsens With: movement, palpation. Associated Symptoms: nausea/vomiting HPI: Patient is a 52-year-old female with history of hypertension, hyperlipidemia and pancreatitis presenting to the emergency department with chief complaint of epigastric abdominal pain with associated nausea and vomiting that began early this morning around 3 AM. Patient reports that she has recent history of pancreatitis diagnosis in July 2017. She reports she was a heavy drinker at that time, has not been drinking alcohol since. Currently on Antabuse to help stop drinking. Denies drinking alcohol. Unsure how many times she has vomited since onset around 3 AM. Denies diarrhea. Pain does not radiate. Pain is sharp and stabbing. No sick contacts or recent travel. (Barbara HAWLEY,Em) Allergies Coded Allergies: morphine (UNKNOWN 10/05/17) Penicillins (Intermediate, GI UPSET 11/07/16) Reconcile Medications Acamprosate Calcium 333 MG TABLET.DR 2 TAB PO TID Alcohol Use Disorder Atorvastatin Calcium 10 MG TABLET 1 TAB PO DAILY HPL (Reported) Cyclobenzaprine HCl 10 MG TABLET 1 TAB PO TID PAIN Lisinopril 5 MG TABLET 1 TAB PO DAILY HTN (Reported) Multivitamin (One Daily Multivitamin) 1 EACH TABLET 1 TAB PO DAILY SUPPLEMENT (Reported) Omeprazole 40 MG CAPSULE. 1 CAP PO DAILY REFLUX (Reported) (Zack CLAYTON,Shelley) Past History Travel History Traveled to [place] past 21 day No Medical History Any Pertinent Medical History? 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 No (Em Madrigal) Review of Systems Review of Systems Constitutional: Reports: no symptoms. Comments Review of systems: See HPI, All other systems negative. Constitutional, no chills fever or weight loss HEENT: No visual changes no sore throat no congestion Cardiovascular: No chest pain ,palpitation , orthopnea or ankle swelling Skin, no jaundice no rashes Respiratory: No dyspnea cough sputum or hemoptysis GI: No diarrhea : No dysuria No hematuria Muscle skeletal: no back pain, no neck pain, Neurologic: No numbness no confusion, no headache Psych: No stress anxiety or depression,. Heme/endocrine: No bruising no bleeding no polyuria or polydipsia Immunology: No splenectomy or history of AIDS (Em Madrigal) Physical Exam Physical Exam General Appearance: alert, awake, anxious, mild distress Gastrointestinal: normal bowel sounds, soft, guarding, tenderness Comments: Well-developed well-nourished person in mild distress HEENT: Atraumatic, normocephalic Neck: Normal inspection Back: Nontender, no CVA tenderness. Cardiovascular: Regular rate and rhythms no murmurs rubs or gallops, normal JVP Respiratory: Chest nontender. No respiratory distress.breath sounds clear to auscultation bilaterally Abdomen: Soft, significant tenderness to palpation in the epigastric region with rebound and guarding present, nondistended, no appreciable organomegaly. Normal bowel sounds. No ascites Extremity: No edema Neuro: Alert oriented x3 Skin: No appreciable rash on exposed skin, skin is warm and dry. Psych: Appears anxious, memory and judgment is normal. Core Measures ACS in differential dx? No Sepsis Present: No Sepsis Focused Exam Completed? No (Barbara HAWLEY,Em) Progress Differential Diagnosis: appendicitis, biliary colic, cholecystitis, gastritis, pancreatitis Plan of Care: Orders Procedure Date/time Status CBC WITHOUT DIFFERENTIAL 10/06 0600 Active BASIC ELECTROLYTES PLUS BUN&CR 10/06 0600 Active Nothing by Mouth 10/05 D Active Pathway - chart 10/05 1337 Active House Staff 10/05 1337 Active Patient Data 10/05 1337 Active Code Status 10/05 1337 Active Patient Data 10/05 1157 Active ED Holding Orders 10/05 1134 Active Admit to inpatient 10/05 1134 Active Vital Signs 10/05 1134 Active Code Status 10/05 1134 Complete Add-on Test (ER Only) 10/05 1005 Active Intake & Output 10/05 1001 Active LIPID PANEL 10/05 1000 Complete ETHANOL 10/05 1000 Complete LACTIC ACID 10/05 0911 Complete URINALYSIS 10/05 0859 Complete LIPASE 10/05 0858 Complete COMPREHENSIVE METABOLIC PANEL 10/05 0858 Complete CBC WITHOUT DIFFERENTIAL 10/05 0858 Complete AMYLASE 10/05 0858 Complete VTE Mechanical Prophylaxis 10/05 UNK Active Vital Signs 10/[address] ABD & PELVIS W/O IV CONTRAS 10/05 UNK Active Current Medications Sig/Sina Start time Last Medication Dose Stop Time Status Admin Lactated Ringer's 1,000 ML Q6H 10/05 1900 AC (Lactated Ringers) Cyclobenzaprine HCl 10 MG TID 10/05 1600 AC (Flexeril 10MG Tab) Nicotine 21 MG DAILY 10/05 1415 AC 10/05 (Nicoderm) 1423 Acetaminophen 1,000 MG Q6P PRN 10/05 1345 AC (Ofirmev) N/A 1 UNIT (No Carrier) Hydromorphone HCl 1 MG Q6P PRN 10/05 1345 AC (Dilaudid) Ketorolac 15 MG Q6P PRN 10/05 1345 AC Tromethamine (Toradol) Lactated Ringer's 1,000 ML ONCE ONE 10/05 1345 AC 10/05 (Lactated Ringers) 10/05 1844 1404 Ondansetron HCl 4 MG Q6P PRN 10/05 1345 AC (Zofran) Amlodipine Besylate 5 MG DAILY 10/05 1341 AC 10/05 (Norvasc) 1404 Pantoprazole Sodium 40 MG DAILY 10/05 1340 AC 10/05 (Protonix) 1404 Enoxaparin Sodium 40 MG DAILY 10/05 1336 AC 10/05 (Lovenox) 1344 Morphine Sulfate 4 MG ONCE ONE 10/05 1000 CAN (Morphine) 10/05 1001 Ketorolac 30 MG ONCE ONE 10/05 0915 CAN Tromethamine 10/05 0916 (Toradol) Laboratory Tests 10/05/17 1211: Lactic Acid Cancelled 10/05/17 1150: Urine Color YEL, Urine Clarity CLEAR, Urine pH 6.0, Ur Specific Blanchard 1.015, Urine Protein NEG, Urine Ketones 15 H, Urine Nitrite NEG, Urine Bilirubin NEG, Urine Urobilinogen 0.2, Ur Leukocyte Esterase NEG, Ur Microscopic SEDIMENT EXAMINED, Urine RBC 1-3, Urine WBC 1-3 H, Ur Epithelial Cells RARE, Urine Bacteria FEW H, Urine Hemoglobin MOD H, Urine Glucose NEG 10/05/17 1000: Lactic Acid 1.5 10/05/17 1000: Anion Gap 16, Estimated GFR > 60, BUN/Creatinine Ratio 28.3 H, Glucose 123 H, Calcium 10.0, Total Bilirubin 0.8, AST 26, ALT 40, Alkaline Phosphatase 96, Total Protein 7.0, Albumin 4.4, Globulin 2.6, Albumin/Globulin Ratio 1.7, Triglycerides 114, Cholesterol 179, LDL Cholesterol, Calc 89, HDL Cholesterol 68 H, Cholesterol/HDL Ratio 3, Amylase 713 H, Lipase 5756 H, CBC w Diff MAN DIFF ORDERED, RBC 4.96, MCV 90.8, MCH 30.6, RDW 14.1, MPV 9.5, Gran % 83.1 H, Lymphocytes % 11.7 L, Monocytes % 4.3, Eosinophils % 0.4, Basophils % 0.5, Absolute Granulocytes 11.1 H, Absolute Lymphocytes 1.6, Absolute Monocytes 0.6, Absolute Eosinophils 0.1, Absolute Basophils 0.1, Platelet Estimate VERIFIED BY SMEAR, Normocytic RBCs VERIFIED, Normochromic RBCs VERIFIED, PUBS MCHC 33.7, Serum Alcohol < 10.0 On arrival patient is afebrile, mild distress with reproducible abdominal pain in the epigastric region. She reports that this feels identical to previous pancreatitis. We'll assess with Amylase lipase, CbC and CMP. Patient medicated with IV fluids, Zofran and IV Tylenol. Patient will also recieve iv zofran. Patient had no relief with IV Tylenol. Patient given IV Dilaudid with some relief. Nausea has improved. Patient will be admitted for pancreatitis, nothing by mouth status, IV hydration. Diagnostic Imaging: Viewed by Me: Ultrasound. Discussed w/RAD: Ultrasound. Radiology Impression: PATIENT: LOBITO STILES PRESENT AGE: 52 PATIENT ACCOUNT NO: [id number] : 67 LOCATION: [facility] ORDERING PHYSICIAN: Em HAWLEY SERVICE DATE: 10/05/17 EXAM TYPE: US - US-LIMITED ABDOMEN EXAMINATION: US ABDOMEN LIMITED CLINICAL INFORMATION: Epigastric pain rule out biliary stone or pancreatitis. Patient status post cholecystectomy. COMPARISON: Limited abdominal ultrasound, dated . TECHNIQUE: Real-time imaging of the right upper quadrant abdominal viscera. FINDINGS: PANCREAS: Not well evaluated due to overlying bowel gas. LIVER: A trace amount of free fluid is present in the gallbladder fossa. The liver demonstrates normal size, contour and echogenicity. No focal lesion or intrahepatic biliary duct dilatation. GALLBLADDER: Surgically absent. COMMON BILE DUCT: Normal in caliber measuring 1.1 cm in diameter, no echogenic material is present within the common bile duct to suggest retained stone. RIGHT KIDNEY: Limited evaluation due to overlying bowel gas, measurement not taken. No hydronephrosis. No renal calculi or focal parenchymal lesions. FREE FLUID: Trace near gallbladder fossa at the margin of the liver. IMPRESSION: 1. The pancreas is not visualized due to overlying bowel gas and there is limited evaluation of the right kidney also due to overlying bowel gas. 2. Trace free fluid at the margin of the liver in the gallbladder fossa. DICTATED BY: Merle Amaya MD DATE/TIME DICTATED:10/05/171106 INSURANCE CLAIMS ADJUSTER:TUAN DATE/TIME TRANSCRIBED:10/05/171106 CONFIDENTIAL, DO NOT COPY WITHOUT APPROPRIATE AUTHORIZATION. <Electronically signed in Other Vendor System> SIGNED BY: Merle Amaya MD 10/05/17 1115 Initial ED EKG: none (Em Madrigal) Departure Departure Time of Disposition: 1137 Disposition: STILL A PATIENT Condition: Stable Clinical Impression Primary Impression: Pancreatitis Qualifiers: Chronicity: acute Pancreatitis type: unspecified pancreatitis type Acute pancreatitis complication: unspecified Qualified Code: K85.90 - Acute pancreatitis without necrosis or infection, unspecified Referrals: Ashley Mcclain APRN (PCP/Family) Departure Forms: Customer Survey General Discharge Information Admission Note Spoke With: Jessika Walsh MD Documentation of Exam: Documentation of any treatments & extenuating circumstances including Concerns Regarding Discharge (functional status, medication knowledge or non-compliance, living conditions, etc.) that warrant an admission rather than observation: Patient requiring nothing by mouth status, IV pain management, IV hydration, recheck of lipase, GI consultation, discharge at this time would be medically harmful. (Em Madrigal) PA/SHERIFF'S DETECTIVE Co-Sign Statement Statement: ED Attending supervision documentation- [X] I saw and evaluated the patient. I have also reviewed all the pertinent lab results and diagnostic results. I agree with the findings and the plan of care as documented in the PA's/SHERIFF'S DETECTIVE's documentation. [X] I have reviewed the ED Record and agree with the PA's/SHERIFF'S DETECTIVE's documentation. [] Additions or exceptions (if any) to the PAs/SHERIFF'S DETECTIVE's note and plan are summarized below: [] (Zack CLAYTON,Shelley)
[2017-10-05 10:20] LABS: ABSOLUTE BASOPHIL COUNT 0.1 /CUMM (0.0-0.2); ABSOLUTE EOSINOPHIL COUNT 0.1 /CUMM (0.0-0.7); ABSOLUTE GRANULOCYTE CT 11.1 /CUMM (1.4-6.5); ABSOLUTE LYMPH COUNT 1.6 /CUMM (1.2-3.4); ABSOLUTE MONOCYTE COUNT 0.6 /CUMM (0.10-0.60); BASOPHIL % 0.5 % (0.0-2.0); EOSINOPHIL % 0.4 % (0-5); GRANULOCYTE % 83.1 % (42.2-75.2); MEAN CORPUSCULAR HGB 30.6 PG (27.0-31.0); MEAN CORPUSCULAR HGB CONC 33.7 G/DL (33.0-37.0); MEAN CORPUSCULAR VOLUME 90.8 FL (81.0-99.0); MEAN PLATELET VOLUME 9.5 FL (7.4-10.4); PLATELET COUNT 247 /CUMM (130-400); RBC DISTRIBUTION WIDTH 14.1 % (11.5-14.5); RED BLOOD CELL CT 4.96 /CUMM (4.20-5.40); WHITE BLOOD CELL COUNT 13.4 /CUMM (4.8-10.8)
--- NOTE | 2017-10-05 11:15 | ULTRASOUND REPORT ---
EXAMINATION: US ABDOMEN LIMITED CLINICAL INFORMATION: Epigastric pain rule out biliary stone or pancreatitis. Patient status post cholecystectomy. COMPARISON: Limited abdominal ultrasound, dated 08/01/2017. TECHNIQUE: Real-time imaging of the right upper quadrant abdominal viscera. FINDINGS: PANCREAS: Not well evaluated due to overlying bowel gas. LIVER: A trace amount of free fluid is present in the gallbladder fossa. The liver demonstrates normal size, contour and echogenicity. No focal lesion or intrahepatic biliary duct dilatation. GALLBLADDER: Surgically absent. COMMON BILE DUCT: Normal in caliber measuring 1.1 cm in diameter, no echogenic material is present within the common bile duct to suggest retained stone. RIGHT KIDNEY: Limited evaluation due to overlying bowel gas, measurement not taken. No hydronephrosis. No renal calculi or focal parenchymal lesions. FREE FLUID: Trace near gallbladder fossa at the margin of the liver. IMPRESSION: 1. The pancreas is not visualized due to overlying bowel gas and there is limited evaluation of the right kidney also due to overlying bowel gas. 2. Trace free fluid at the margin of the liver in the gallbladder fossa.
[2017-10-05] MEDS ORDERED: ATORVASTATIN CA10 M1 PO (11:41)
[2017-10-05] MEDS ORDERED: LISINOPRIL5 M1 PO (11:41)
--- NOTE | 2017-10-05 13:33 | History & Physical ---
Carl Medellin 10/05/17 1333: General Information and HPI MD Statement: I have seen and personally examined LOBITO STILES and documented this H&P. The patient is a 52 year old F who presented with a patient stated chief complaint of abdomen pain, nausea, vomiting for 1 day Source of Information: patient Exam Limitations: no limitations History of Present Illness: This is a 52-year-old female with past medical history significant for recurrent pancreatitis, alcohol dependence in the past, GERD, muscle spasms, hypertension, hyperlipidemia, current smoker, cholelithiasis status post cholecystectomy, peptic ulcer, left hip fracture presented to the hospital with chief complaint of abdominal pain, nausea, vomiting for 1 day. Patient stated that abdominal pain started yesterday after having fatty meal. Mostly in her epigastric abdomen area, 10 out of 10, stabbing, radiating to her back. Abdomen pain is associated with the nausea and vomiting. Denied any hematemesis, melena, hematochezia. Non-biliary nonbloody vomitus. Denied any lower abdominal pain, sick contact exposure, travel history, foot poisoning. Review of systems negative for any chest pain, short of breath, palpitations, fever, chills, cough, urinary problems, constipation or diarrhea, headache. Social history significant for smoking one pack per day. She stopped drinking alcohol since 2016. She has been taking acamprosate. Denies any illicit drug abuse. Her recent admission was for acute pancreatitis in normal 2016. Allergies/Medications Allergies: Coded Allergies: morphine (UNKNOWN 10/05/17) Penicillins (Intermediate, GI UPSET 11/07/16) Home Med list Acamprosate Calcium 333 MG TABLET.DR 2 TAB PO TID Alcohol Use Disorder Atorvastatin Calcium 10 MG TABLET 1 TAB PO DAILY HPL (Reported) Cyclobenzaprine HCl 10 MG TABLET 1 TAB PO TID PAIN Lisinopril 5 MG TABLET 1 TAB PO DAILY HTN (Reported) Multivitamin (One Daily Multivitamin) 1 EACH TABLET 1 TAB PO DAILY SUPPLEMENT (Reported) Omeprazole 40 MG CAPSULE.DR 1 CAP PO DAILY REFLUX (Reported) Compliance With Home Meds: GOOD Past History Travel History Traveled to [place] past 21 day No Medical History Neurological: NONE EENT: NONE Cardiovascular: hypertension, hyperlipidemia Respiratory: NONE Gastrointestinal: GERD, pancreatitis Hepatic: cholelithiasis Renal: NONE Musculoskeletal: fracture, sciatica, L HIP FX Psychiatric: NONE Endocrine: NONE Blood Disorders: NONE Cancer(s): NONE 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 Ambulation: independent IADLs Independent: shopping, housework, finances, food prep, telephone, transportation , medication admin. Sexual History Past Sexual History Unobtainable at this time Review of Systems Review of Systems Constitutional: Reports: see HPI. Denies: chills, diaphoresis, fever, malaise, weakness, unexplained weight loss. EENTM: Denies: blurred vision, double vision, icterus, ear discharge, hearing changes, epistaxis. Cardiovascular: Denies: chest pain, edema, orthopena, palpitations, peripheral edema, syncope. Respiratory: Denies: cough, hemoptysis, orthopnea, short of breath, sputum production. GI: Reports: abdominal pain, nausea, vomiting. Denies: constipation, diarrhea, distention, bowel incontinence, melena. Genitourinary: Denies: discharge, dysuria, frequency, hematuria, hesitation. Musculoskeletal: Denies: back pain, gout, joint pain, joint swelling. Neurological/Psychological: Denies: anxiety, ataxia, confusion, dementia, headache. Exam & Diagnostic Data Last 24 Hrs of Vital Signs/I&O Vital Signs Date Time Temp Pulse Resp B/P B/P Pulse O2 O2 Flow FiO2 Mean Ox Delivery Rate 10/05 1404 98.3 77 20 168/96 10/05 1318 98.3 77 20 168/96 95 Room Air 10/05 1140 98.0 90 18 200/100 10/05 1115 98.0 90 18 200/100 98 Room Air 10/05 0822 98.2 106 18 162/88 98 Room Air Intake & Output 10/05 1600 10/05 0800 10/05 0000 Intake Total 1000 Output Total Balance 1000 Intake, IV 1000 Patient 74.389 kg Weight Weight Reported by Patient Measurement Method Physical Exam General Appearance Alert, Oriented X3, Cooperative, No Acute Distress Skin No Rashes, No Breakdown, No Significant Lesion Skin Temp/Moisture Exam: Warm/Dry Sepsis Skin Exam (color): Normal for Ethnicity HEENT Atraumatic, PERRLA, EOMI, Mucous Membr. moist/pink Neck Supple, No JVD Lymphatic Cervical nl Cardiovascular Regular Rate, Normal S1, Normal S2, No Murmurs Lungs Clear to Auscultation, Normal Air Movement Abdomen Normal Bowel Sounds, Soft, TENDERNESS ON PALPATION Neurological Normal Speech, Strength at 5/5 X4 Ext, Sensation Intact Extremities No Clubbing, No Cyanosis, No Edema, Normal Pulses Vascular Pulses Symmetrical Last 24 Hrs of Labs/Yunier: Laboratory Tests 10/05/17 1211: Lactic Acid Cancelled 10/05/17 1150: Urine Color YEL, Urine Clarity CLEAR, Urine pH 6.0, Ur Specific [place] 1.015, Urine Protein NEG, Urine Ketones 15 H, Urine Nitrite NEG, Urine Bilirubin NEG, Urine Urobilinogen 0.2, Ur Leukocyte Esterase NEG, Ur Microscopic SEDIMENT EXAMINED, Urine RBC 1-3, Urine WBC 1-3 H, Ur Epithelial Cells RARE, Urine Bacteria FEW H, Urine Hemoglobin MOD H, Urine Glucose NEG 10/05/17 1000: Lactic Acid 1.5 10/05/17 1000: Anion Gap 16, Estimated GFR > 60, BUN/Creatinine Ratio 28.3 H, Glucose 123 H, Calcium 10.0, Total Bilirubin 0.8, AST 26, ALT 40, Alkaline Phosphatase 96, Total Protein 7.0, Albumin 4.4, Globulin 2.6, Albumin/Globulin Ratio 1.7, Triglycerides 114, Cholesterol 179, LDL Cholesterol, Calc 89, HDL Cholesterol 68 H, Cholesterol/HDL Ratio 3, Amylase 713 H, Lipase 5756 H, CBC w Diff MAN DIFF ORDERED, RBC 4.96, MCV 90.8, MCH 30.6, RDW 14.1, MPV 9.5, Gran % 83.1 H, Lymphocytes % 11.7 L, Monocytes % 4.3, Eosinophils % 0.4, Basophils % 0.5, Absolute Granulocytes 11.1 H, Absolute Lymphocytes 1.6, Absolute Monocytes 0.6, Absolute Eosinophils 0.1, Absolute Basophils 0.1, Platelet Estimate VERIFIED BY SMEAR, Normocytic RBCs VERIFIED, Normochromic RBCs VERIFIED, PUBS MCHC 33.7, Serum Alcohol < 10.0 Assessment/Plan Assessment: This is a 52-year-old female with past medical history significant for recurrent pancreatitis, alcohol dependence in the past, GERD, muscle spasms, hypertension, hyperlipidemia, current smoker, cholelithiasis status post cholecystectomy, peptic ulcer, left hip fracture presented to the hospital with chief complaint of abdominal pain, nausea, vomiting for 1 day. Vitals at the time of presentation afebrile, tachycardic 106, respiratory rate 18, blood pressure 162/88, saturating at 98 on room air. Pertinent labs WBC 13.4, hemoglobin 15, hematocrit 45, platelets 247. BEP completely normal LFTs within normal Lipid panel triglycerides 114, HDL 68, LDL 89. Amylase 713, lipase 5756 Ultrasound abdomen was normal. Received Tylenol, Dilaudid, Zofran, 1 L normal saline, lisinopril in the ER. 1. Acute pancreatitis Patient presented with typical presentation of acute pancreatitis with epigastric abdominal pain associated with nausea, vomiting, radiating to back. Vitals showed tachycardia and hypertension. Leukocyte count was elevated. Laboratory findings suggestive of elevated amylase and lipase more than 3 times. She fulfilled 2 out of 3 criteria for acute pancreatitis. * Admit patient to general medicine floor * Vitals every shift * Keep the patient nothing by mouth * Aggressive IV fluid hydration with Ringer's lactate at 200 mL per hour for 1 bag * Then continue 150 mL per hour Ringer lactate * IV antiemetics Zofran as needed for nausea * IV Protonix 40 daily * Pain management with Toradol and IV Dilaudid * Will get CAT scan abdomen and pelvis without contrast to look for acute pancreatitis. Hypertension-lisinopril on hold. Patient is started on amlodipine 5mg. Closely monitor blood pressure. Hyperlipidemia-will hold statin for now Current smoker-nicotine patch 21 mg daily Muscle spasm-continue Flexeril 10 mg 3 times a day Alcohol dependence home medication acomprosate on hold. DVT prophylaxis subcutaneous Lovenox Full code Nothing by mouth for acute pancreatitis Pain pathway ordered As Ranked By This Provider Problem List: 1. Acute pancreatitis Core Measures/Misc (05/29) Acute Coronary Syndrome ACS Diagnosis: No Congestive Heart Failure Congestive Heart Failure Diagnosis No Cerebrovascular Accident CVA/TIA Diagnosis: No VTE (View Protocol) VTE Risk Factors No risk factors No Mechanical VTE Prophylaxis d/t N/A MechProphylax Ordered No VTE Pharm Prophylaxis d/t NA PharmProphylax ordered Sepsis (View protocol) Sepsis Present: No Yessica Loo MD 10/05/17 1433: Attending MD Review Statement Attending Statement Attending MD Statement: examined this patient, discuss w/resident/PA/NAILHEAD SETTER, agreed w/resident/PA/NAILHEAD SETTER, reviewed EMR data (avail), discussed with nursing, reviewed images, amended to note Attending Assessment/Plan: 52 y/o F with pmh sig for recurrent pancreatitis, alcohol dependence in the past , GERD, hypertension, hyperlipidemia, current smoker, cholelithiasis status post cholecystectomy, peptic ulcer, presented with abdominal pain and intractable nausea and vomiting. Patient admits to eating fatty meal yesterday and last night had some queasy feeling in her abdomen. Then she started to throw up and has been throwing up all night long. She's complain of some lower abdominal pain from all the muscle fatigue. She denies any diarrhea. She denies any fevers or chills. She does have history of pancreatitis in the past and has a family history of pancreatic problems. Patient does have elevation in her lipase and amylase levels in the emergency room. Her blood pressure was also not controlled. Vital Signs Date Time Temp Pulse Resp B/P B/P Pulse O2 O2 Flow FiO2 Mean Ox Delivery Rate 10/05 1404 98.3 77 20 168/96 10/05 1318 98.3 77 20 168/96 95 Room Air 10/05 1140 98.0 90 18 200/100 10/05 1115 98.0 90 18 200/100 98 Room Air 10/05 0822 98.2 106 18 162/88 98 Room Air on exam; aox3, nad. cv; s1,s2, rrr resp; clear abd; soft, tender in epigastrium and lower abd, bs+ ext; no edema Laboratory Tests 10/05 10/05 10/05 1211 1150 1000 Chemistry Lactic Acid (0.7 - 2.1 mmol/L) Cancelled 1.5 Urines Urine Color (YEL,AMB,STR) YEL Urine Clarity (CLEAR) CLEAR Urine pH (5.0 - 8.0) 6.0 Ur Specific [place] (1.001 - 1.035) 1.015 Urine Protein (NEG,<30 MG/DL) NEG Urine Ketones (NEG) 15 H Urine Nitrite (NEG) NEG Urine Bilirubin (NEG) NEG Urine Urobilinogen (0.1 - 1.0 EU/dl) 0.2 Ur Leukocyte Esterase (NEG) NEG Ur Microscopic SEDIMENT EXAMINED Urine RBC (0 - 5 /HPF) 1-3 Urine WBC (0 - 2 /HPF) 1-3 H Ur Epithelial Cells (NONE,FEW) RARE Urine Bacteria (NEG/NONE) FEW H Urine Hemoglobin (NEG) MOD H Urine Glucose (N MG/DL) NEG 10/05 1000 Chemistry Sodium (137 - 145 mmol/L) 139 Potassium (3.5 - 5.1 mmol/L) 4.1 Chloride (98 - 107 mmol/L) 102 Carbon Dioxide (22 - 30 mmol/L) 21 L Anion Gap (5 - 16) 16 BUN (7 - 17 mg/dL) 17 Creatinine (0.5 - 1.0 mg/dL) 0.6 Estimated GFR (>60 ml/min) > 60 BUN/Creatinine Ratio (7 - 25 %) 28.3 H Glucose (65 - 99 mg/dL) 123 H Calcium (8.4 - 10.2 mg/dL) 10.0 Total Bilirubin (0.2 - 1.3 mg/dL) 0.8 AST (14 - 36 U/L) 26 ALT (9 - 52 U/L) 40 Alkaline Phosphatase (<127 U/L) 96 Total Protein (6.3 - 8.2 g/dL) 7.0 Albumin (3.5 - 5.0 g/dL) 4.4 Globulin (1.9 - 4.2 gm/dL) 2.6 Albumin/Globulin Ratio (1.1 - 2.2 %) 1.7 Triglycerides (<150 mg/dL) 114 Cholesterol (<200 MG/DL) 179 LDL Cholesterol, Calc (65 - 129 mg/dL) 89 HDL Cholesterol (40 - 60 mg/dL) 68 H Cholesterol/HDL Ratio (0.00 - 4.23 %) 3 Amylase (30 - 110 U/L) 713 H Lipase (23 - 300 U/L) 5756 H Hematology CBC w Diff MAN DIFF ORDERED WBC (4.8 - 10.8 /CUMM) 13.4 H RBC (4.20 - 5.40 /CUMM) 4.96 Hgb (12.0 - 16.0 G/DL) 15.2 Hct (37 - 47 %) 45.0 MCV (81.0 - 99.0 FL) 90.8 MCH (27.0 - 31.0 PG) 30.6 RDW (11.5 - 14.5 %) 14.1 Plt Count (130 - 400 /CUMM) 247 MPV (7.4 - 10.4 FL) 9.5 Gran % (42.2 - 75.2 %) 83.1 H Lymphocytes % (20.5 - 51.1 %) 11.7 L Monocytes % (1.7 - 9.3 %) 4.3 Eosinophils % (0 - 5 %) 0.4 Basophils % (0.0 - 2.0 %) 0.5 Absolute Granulocytes (1.4 - 6.5 /CUMM) 11.1 H Absolute Lymphocytes (1.2 - 3.4 /CUMM) 1.6 Absolute Monocytes (0.10 - 0.60 /CUMM) 0.6 Absolute Eosinophils (0.0 - 0.7 /CUMM) 0.1 Absolute Basophils (0.0 - 0.2 /CUMM) 0.1 Platelet Estimate (ADEQUATE) VERIFIED BY SMEAR Normocytic RBCs VERIFIED Normochromic RBCs VERIFIED PUBS MCHC (33.0 - 37.0 G/DL) 33.7 Toxicology Serum Alcohol (<10 MG/DL) < 10.0 US abd: IMPRESSION: 1. The pancreas is not visualized due to overlying bowel gas and there is limited evaluation of the right kidney also due to overlying bowel gas. 2. Trace free fluid at the margin of the liver in the gallbladder fossa. A/P: 52 y/o F with pmh sig for recurrent pancreatitis, alcohol dependence in the past, GERD, hypertension, hyperlipidemia, current smoker, cholelithiasis status post cholecystectomy, peptic ulcer, admitted with abdominal pain, nausea and vomiting likely secondary to acute on chronic pancreatitis. Her triglyceride levels are normal and she does have a history of cholecystectomy. Patient will be admitted to medicine floor. She will be kept nothing by mouth. She will be started on Ringer's lactate IV fluids. She'll be treated with analgesics as well as antiemetics. Please obtain noncontrast CT abdomen and pelvis. She takes DAVID inhibitor for hypertension. It is uncontrolled anyways and DAVID inhibitor can also be a risk factor for developing pancreatitis. We'll stop her lisinopril and start the patient on amlodipine. Continue the rest of her home medications. DVT prophylaxis: Lovenox. Patient is a full code.
[2017-10-05 16:26] VITALS: BP 168/99
--- NOTE | 2017-10-05 16:41 | CT SCAN REPORT ---
EXAMINATION: CT ABDOMEN AND PELVIS WITHOUT CONTRAST CLINICAL INFORMATION: Epigastric pain, nausea and vomiting. Elevated amylase and lipase. Presumptive diagnosis of acute pancreatitis. COMPARISON: Right upper quadrant ultrasound dated 10/05/2017 and 08/01/2017. CT scan of the abdomen and pelvis dated 10/07/2016. TECHNIQUE: Multidetector volumetric imaging was performed from the superior aspect of the liver through the pubic symphysis. Sagittal and coronal reformatted images were obtained on the technologist workstation. DLP: 364.42 mGy-cm. FINDINGS: LUNG BASES: Mild dependent atelectatic changes are again seen, unchanged. LIVER, GALLBLADDER, AND BILIARY TREE: The liver is normal in size, shape, and attenuation. No focal hepatic lesion on noncontrast imaging. No biliary ductal dilatation is present. The gallbladder is surgically absent with no focal collection seen in the gallbladder fossa. Proximal common bile duct is visualized and is mildly dilated at 1.1 cm as compared to 0.8 cm previously. The distal pancreatic duct in the pancreatic head is not visualized. PANCREAS: The pancreas is abnormal with enlargement and edema of the pancreatic head and body and relative atrophy of the pancreatic tail seen, which is progressive when compared to the prior exam. There is increased peripancreatic edema and stranding seen. The retroperitoneal edema is extending along the anterior pararenal space into the lateral conal fascia bilaterally and into the presacral space in the pelvis. Small amount of edema there is also seen tracking in the small bowel mesentery and along the erna hepatis. Small volume of pericapsular perihepatic fluid is also noted. Findings are consistent with the clinical impression of pancreatitis and have progressed compared to the prior exam. No defined focal fluid collection is noted. No pancreatic ductal dilatation is appreciated. There is loss of the fat plane between the pancreatic head and the duodenal C-sweep. SPLEEN, ADRENAL GLANDS: There is enlargement of the left adrenal gland with surrounding fat stranding seen, similar to the previous exam, consistent with adrenal hypertrophy. Right adrenal gland is normal. Unremarkable on noncontrast imaging. KIDNEYS AND URETERS: The kidneys are normal in size, shape, and attenuation. There is a 0.4 cm nonobstructing calcification in the lower pole of the left kidney. No hydronephrosis, hydroureter, or additional calculi seen. No perinephric stranding. BLADDER: Unremarkable. PELVIC VISCERA: Unremarkable. GASTROINTESTINAL TRACT: There is diffuse mild thickening of the duodenal C-sweep and portions of the stomach, likely reactive to the adjacent inflammatory changes in the pancreas. Similarly, there is mild thickening of the splenic flexure of the colon with mild adjacent mesenteric edema, consistent with reactive change to the acute pancreatitis. The small and large bowel are decompressed and otherwise unremarkable. The appendix is not visualized. ABDOMINAL WALL: Small amount of subcutaneous emphysema seen in the right paramedian mid abdominal wall, consistent with subcutaneous injection. No significant hernia is appreciated. LYMPH NODES, VASCULAR: Mild atherosclerotic calcifications of the abdominal aorta and bifurcation noted. No significant abdominal or pelvic adenopathy seen. OSSEOUS STRUCTURES: Three compression hip screws are seen in the left hip. No suspicious bone findings. IMPRESSION: 1. Above findings are consistent with acute interstitial pancreatitis with surrounding diffuse peripancreatic edema, small volume ascites in the abdomen and pelvis, and reactive edema and thickening of the duodenum, portions of the stomach and splenic flexure. No focal walled off fluid collection is seen. On noncontrast study, the presence or absence of pancreatic necrosis cannot be determined. No definite liquefactive intrapancreatic collection is noted. Findings have progressed when compared to 10/07/2016 and 10/29/2015. 2. Atrophy of the pancreatic tail, new from prior exams. 3. No focal walled off collection or definite evidence of pancreatic necrosis on noncontrast study. 4. Mild proximal extrahepatic ductal dilatation with nonvisualization of the distal common bile duct in the pancreatic head, likely due to extrinsic compression by pancreatic parenchymal edema/pancreatitis. Findings are progressive compared to prior studies. 5. Status post cholecystectomy. 6. Nonobstructing lower pole left renal calcification, unchanged from prior exam.
[2017-10-06 00:37] VITALS: BP 169/103
[2017-10-06 05:57] LABS: ABSOLUTE BASOPHIL COUNT 0 /CUMM (0.0-0.2); ABSOLUTE EOSINOPHIL COUNT 0.2 /CUMM (0.0-0.7); ABSOLUTE LYMPH COUNT 1.4 /CUMM (1.2-3.4); ABSOLUTE MONOCYTE COUNT 0.4 /CUMM (0.10-0.60); BASOPHIL % 0.3 % (0.0-2.0); EOSINOPHIL % 2.1 % (0-5); GRANULOCYTE % 74.9 % (42.2-75.2); MEAN CORPUSCULAR HGB CONC 34.1 G/DL (33.0-37.0); MEAN CORPUSCULAR VOLUME 90.8 FL (81.0-99.0); PLATELET COUNT 177 /CUMM (130-400); RBC DISTRIBUTION WIDTH 14.6 % (11.5-14.5); RED BLOOD CELL CT 4.26 /CUMM (4.20-5.40)
[2017-10-06 06:01] LABS: HEMATOCRIT 38.7 % (37-47)
[2017-10-06 07:34] VITALS: BP 140/82
[2017-10-06 07:35] VITALS: BP 140/82
--- NOTE | 2017-10-06 07:43 | PN- Housestaff ---
Carl Medellin 10/06/17 0743: Subjective Follow-up For: acute pancreatitis Subjective: patient was seen and examined. She is alert awake and oriented to time place and person. No acute events noticed. Patient continues to report mild epigastric pain associated with minimal nausea. Denied any vomiting. No melena , hematemesis, hematochezia. Vitals were stable Review of Systems Constitutional: Reports: see HPI. Objective Last 24 Hrs of Vital Signs/I&O Vital Signs Date Time Temp Pulse Resp B/P B/P Pulse O2 O2 Flow FiO2 Mean Ox Delivery Rate 10/06 1026 80 140/82 10/06 0735 98.3 80 18 140/82 10/06 0734 98.3 80 18 140/82 95 Room Air 10/06 0724 98.3 80 16 140/82 95 Room Air 10/06 0037 98.4 108 18 169/103 10/06 0037 98.4 108 18 169/103 94 Room Air 10/05 2257 98.0 88 18 154/92 96 Room Air 10/05 1959 97.8 88 18 156/90 99 Room Air 10/05 1814 98.0 83 18 167/97 96 Room Air 10/05 1626 97.0 76 16 168/99 10/05 1625 97.0 78 16 168/99 98 Room Air 10/05 1600 98 Room Air 10/05 1404 98.3 77 20 168/96 10/05 1318 98.3 77 20 168/96 95 Room Air Intake & Output 10/06 1600 10/06 0800 10/06 0000 Intake Total 1000 Output Total Balance 1000 Intake, IV 1000 Patient 74.389 kg Weight Weight Reported by Patient Measurement Method Physical Exam General Appearance: Alert, Oriented X3, Cooperative, No Acute Distress Other Physical Findings: HEENT Atraumatic, PERRLA, EOMI, Mucous Membr. moist/pink Neck Supple, No JVD Lymphatic Cervical nl Cardiovascular Regular Rate, Normal S1, Normal S2, No Murmurs Lungs Clear to Auscultation, Normal Air Movement Abdomen Normal Bowel Sounds, Soft, TENDERNESS ON PALPATION Neurological Normal Speech, Strength at 5/5 X4 Ext, Sensation Intact Extremities No Clubbing, No Cyanosis, No Edema, Normal Pulses Vascular Pulses Symmetrical Current Medications: Current Medications Sig/Sina Start time Last Medication Dose Route Stop Time Status Admin Acetaminophen 1,000 MG Q6P PRN 10/05 1345 N/A 1 UNIT IV Amlodipine Besylate 0 .STK-MED ONE 10/05 1354 DC PO Amlodipine Besylate 5 MG DAILY 10/05 1341 AC 10/06 PO 1026 Benzonatate 100 MG TID 10/06 1000 AC 10/06 PO 1026 Cyclobenzaprine HCl 0 .STK-MED ONE 10/05 2235 DC PO Cyclobenzaprine HCl 0 .STK-MED ONE 10/05 1625 DC PO Cyclobenzaprine HCl 10 MG TID 10/05 1600 AC 10/06 PO 1026 Enoxaparin Sodium 0 .STK-MED ONE 10/05 1346 DC SC Enoxaparin Sodium 40 MG DAILY 10/05 1336 10/06 SC 1026 Hydromorphone HCl 0 .STK-MED ONE 10/06 0919 DC .ROUTE Hydromorphone HCl 0 .STK-MED ONE 10/06 0038 DC .ROUTE Hydromorphone HCl 1 MG ONCE ONE 10/05 1345 DC 10/05 IV 10/05 1346 1340 Hydromorphone HCl 1 MG Q6P PRN 10/05 1345 10/06 IV 0916 Hydromorphone HCl 0 .STK-MED ONE 10/05 1340 DC .ROUTE Ketorolac 0 .STK-MED ONE 10/06 0537 DC Tromethamine .ROUTE Ketorolac 0 .STK-MED ONE 10/05 1953 DC Tromethamine .ROUTE Ketorolac 15 MG Q6P PRN 10/05 1345 10/06 Tromethamine IV 0533 Lactated Ringer's 1,000 ML Q6H 10/05 1900 AC 10/06 IV 0928 Lactated Ringer's 1,000 ML ONCE ONE 10/05 1345 DC 10/05 IV 10/05 1844 1404 Nicotine 0 .STK-MED ONE 10/05 1424 DC TOP Nicotine 21 MG DAILY 10/05 1415 10/06 TOP 1026 Ondansetron HCl 4 MG Q6P PRN 10/05 1345 AC IV Pantoprazole Sodium 0 .STK-MED ONE 10/05 1354 DC IV Pantoprazole Sodium 40 MG DAILY 10/05 1340 AC 10/06 IV 1026 Last 24 Hrs of Lab/Yunier Results Last 24 Hrs of Labs/Mics: Laboratory Tests 10/06/17 0528: Anion Gap 13, Estimated GFR > 60, BUN/Creatinine Ratio 24.0, CBC w Diff NO MAN DIFF REQ, RBC 4.26, MCV 90.8, MCH 31.0, MCHC 34.1, RDW 14.6 H, MPV 9.0, Gran % 74.9, Lymphocytes % 17.9 L, Monocytes % 4.8, Eosinophils % 2.1, Basophils % 0.3 , Absolute Granulocytes 6.0, Absolute Lymphocytes 1.4, Absolute Monocytes 0.4, Absolute Eosinophils 0.2, Absolute Basophils 0 10/05/17 1211: Lactic Acid Cancelled Assessment/Plan Assessment: This is a 52-year-old female with past medical history significant for recurrent pancreatitis, alcohol dependence in the past, GERD, muscle spasms, hypertension, hyperlipidemia, current smoker, cholelithiasis status post cholecystectomy, peptic ulcer, left hip fracture presented to the hospital with chief complaint of abdominal pain, nausea, vomiting for 1 day. Vitals at the time of presentation afebrile, tachycardic 106, respiratory rate 18, blood pressure 162/88, saturating at 98 on room air. Pertinent labs WBC 13.4, hemoglobin 15, hematocrit 45, platelets 247. BEP completely normal LFTs within normal Lipid panel triglycerides 114, HDL 68, LDL 89. Amylase 713, lipase 5756 Ultrasound abdomen was normal. Received Tylenol, Dilaudid, Zofran, 1 L normal saline, lisinopril in the ER. 1. Acute pancreatitis Patient presented with typical presentation of acute pancreatitis with epigastric abdominal pain associated with nausea, vomiting, radiating to back. Vitals showed tachycardia and hypertension. Leukocyte count was elevated. Laboratory findings suggestive of elevated amylase and lipase more than 3 times. She fulfilled 2 out of 3 criteria for acute pancreatitis. * Admited patient to general medicine floor * Vitals every shift * Keep the patient nothing by mouth till abd is non tender * continue 150 mL per hour Ringer lactate * IV antiemetics Zofran as needed for nausea * IV Protonix 40 daily * Pain management with Toradol and IV Dilaudid * CAT scan abdomen and pelvis without contrast showed acute interstitial pancreatitis * If patient improves later in the day we can start clear liquids otherwise will start clear liquids in the morning and advance diet as she tolerates. Hypertension-lisinopril on hold. Patient is started on amlodipine 5mg. Closely monitor blood pressure. Hyperlipidemia-will hold statin for now Current smoker-nicotine patch 21 mg daily Muscle spasm-continue Flexeril 10 mg 3 times a day Alcohol dependence home medication acomprosate on hold. DVT prophylaxis subcutaneous Lovenox Full code Nothing by mouth for acute pancreatitis Pain pathway ordered Problem List: 1. Acute pancreatitis Pain Ratin Pain Location: abdomen Pain Goal: Remain pain free Pain Plan: Dilaudid and ketorolac Tomorrow's Labs & Rationales: none Yessica Loo MD 10/06/17 1236: Attending MD Review Statement Attending Statement Attending MD Statement: examined this patient, discuss w/resident/PA/MANAGER CARDIOVASCULAR, agreed w/resident/PA/MANAGER CARDIOVASCULAR, reviewed EMR data (avail), discussed with nursing, discussed with case mgmt, reviewed images, amended to note Attending Assessment/Plan: Patient seen and examined, still having abd pain. Has no appetite yet. vss, BP improved. on exam; aox3, nad. cv; s1,s2, rrr resp; claer abd; tender in epigastrium bs+ ext; no edema Laboratory Tests 10/06 0528 Chemistry Sodium (137 - 145 mmol/L) 139 Potassium (3.5 - 5.1 mmol/L) 3.6 Chloride (98 - 107 mmol/L) 101 Carbon Dioxide (22 - 30 mmol/L) 26 Anion Gap (5 - 16) 13 BUN (7 - 17 mg/dL) 12 Creatinine (0.5 - 1.0 mg/dL) 0.5 Estimated GFR (>60 ml/min) > 60 BUN/Creatinine Ratio (7 - 25 %) 24.0 Hematology CBC w Diff NO MAN DIFF REQ WBC (4.8 - 10.8 /CUMM) 8.0 RBC (4.20 - 5.40 /CUMM) 4.26 Hgb (12.0 - 16.0 G/DL) 13.2 Hct (37 - 47 %) 38.7 MCV (81.0 - 99.0 FL) 90.8 MCH (27.0 - 31.0 PG) 31.0 MCHC (33.0 - 37.0 G/DL) 34.1 RDW (11.5 - 14.5 %) 14.6 H Plt Count (130 - 400 /CUMM) 177 MPV (7.4 - 10.4 FL) 9.0 Gran % (42.2 - 75.2 %) 74.9 Lymphocytes % (20.5 - 51.1 %) 17.9 L Monocytes % (1.7 - 9.3 %) 4.8 Eosinophils % (0 - 5 %) 2.1 Basophils % (0.0 - 2.0 %) 0.3 Absolute Granulocytes (1.4 - 6.5 /CUMM) 6.0 Absolute Lymphocytes (1.2 - 3.4 /CUMM) 1.4 Absolute Monocytes (0.10 - 0.60 /CUMM) 0.4 Absolute Eosinophils (0.0 - 0.7 /CUMM) 0.2 Absolute Basophils (0.0 - 0.2 /CUMM) 0 A/P; 52 y/o F with pmh sig for recurrent pancreatitis, alcohol dependence in the past, GERD, hypertension, hyperlipidemia, current smoker, cholelithiasis status post cholecystectomy, peptic ulcer, admitted with abdominal pain, nausea and vomiting likely secondary to acute on chronic pancreatitis. Her triglyceride levels are normal and she does have a history of cholecystectomy. Will try ice chips today. Patient wafer abrading machine tender in the abdomen and comparing of some abdominal pain. She has no appetite. Continue the IV fluids. Continue IV Protonix. Continue antiemetics and pain management. DVT prophylaxis: Lovenox. If patient improves later in the day then can start clear liquids otherwise will start clear liquids in the morning and advance diet as she tolerates.
[2017-10-06 16:30] VITALS: BP 156/92
[2017-10-06 22:29] VITALS: BP 130/84
[2017-10-07 05:28] VITALS: BP 124/78
--- NOTE | 2017-10-07 07:57 | PN- Housestaff ---
Carl Medellin 10/07/17 0757: Subjective Follow-up For: acute pancreatitis Complaints: pain scale (0-10) Subjective: patient was seen and examined. She is alert awake and oriented to time place and person. No acute events noticed. Patient continues to report mild epigastric pain associated with minimal nausea. Denied any vomiting. No melena, hematemesis, hematochezia. Vitals were stable Review of Systems Constitutional: Reports: see HPI. Objective Last 24 Hrs of Vital Signs/I&O Vital Signs Date Time Temp Pulse Resp B/P B/P Pulse O2 O2 Flow FiO2 Mean Ox Delivery Rate 10/07 0528 98.5 67 20 124/78 93 Room Air 10/06 2229 98.3 91 20 130/84 96 Room Air 10/06 1630 98.1 81 20 156/92 94 Room Air 10/06 1306 99.0 72 16 150/84 95 Room Air 10/06 1026 80 140/82 Intake & Output 10/07 1600 10/07 0800 10/07 0000 Intake Total 1200 300 Output Total 600 Balance 600 300 Intake, IV 1200 300 Output, Urine 600 Physical Exam General Appearance: Alert, Oriented X3, Cooperative, No Acute Distress Other Physical Findings: HEENT Atraumatic, PERRLA, EOMI, Mucous Membr. moist/pink Neck Supple, No JVD Lymphatic Cervical nl Cardiovascular Regular Rate, Normal S1, Normal S2, No Murmurs Lungs Clear to Auscultation, Normal Air Movement Abdomen Normal Bowel Sounds, Soft, TENDERNESS ON PALPATION Neurological Normal Speech, Strength at 5/5 X4 Ext, Sensation Intact Extremities No Clubbing, No Cyanosis, No Edema, Normal Pulses Vascular Pulses Symmetrical Current Medications: Current Medications Sig/Sina Start time Last Medication Dose Route Stop Time Status Admin Acetaminophen 1,000 MG Q6P PRN 10/05 1345 AC N/A 1 UNIT IV Amlodipine Besylate 5 MG DAILY 10/05 1341 AC 10/06 PO 1026 Benzonatate 100 MG TID 10/06 1000 AC 10/06 PO 210 Cyclobenzaprine HCl 10 MG TID 10/05 1600 AC 10/06 PO 210 Enoxaparin Sodium 40 MG DAILY 10/05 1336 AC 10/06 SC 1026 Hydromorphone HCl 1 MG Q6P PRN 10/05 1345 AC 10/07 IV 0406 Ketorolac 30 MG .STK-MED ONE 10/06 2358 DC Tromethamine IM 10/06 2359 Ketorolac 15 MG .STK-MED ONE 10/06 1626 DC Tromethamine IM 10/06 1627 Ketorolac 15 MG Q6P PRN 10/05 1345 10/07 Tromethamine IV 0801 Lactated Ringer's 1,000 ML Q6H 10/05 1900 AC 10/07 IV 0043 Nicotine 21 MG DAILY 10/05 1415 10/06 TOP 1026 Ondansetron HCl 4 MG Q6P PRN 10/05 1345 IV Pantoprazole Sodium 40 MG DAILY 10/05 1340 10/06 IV 1026 Assessment/Plan Assessment: This is a 52-year-old female with past medical history significant for recurrent pancreatitis, alcohol dependence in the past, GERD, muscle spasms, hypertension, hyperlipidemia, current smoker, cholelithiasis status post cholecystectomy, peptic ulcer, left hip fracture presented to the hospital with chief complaint of abdominal pain, nausea, vomiting for 1 day. Vitals at the time of presentation afebrile, tachycardic 106, respiratory rate 18, blood pressure 162/88, saturating at 98 on room air. Pertinent labs WBC 13.4, hemoglobin 15, hematocrit 45, platelets 247. BEP completely normal LFTs within normal Lipid panel triglycerides 114, HDL 68, LDL 89. Amylase 713, lipase 5756 Ultrasound abdomen was normal. Received Tylenol, Dilaudid, Zofran, 1 L normal saline, lisinopril in the ER. 1. Acute pancreatitis Patient presented with typical presentation of acute pancreatitis with epigastric abdominal pain associated with nausea, vomiting, radiating to back. Vitals showed tachycardia and hypertension. Leukocyte count was elevated. Laboratory findings suggestive of elevated amylase and lipase more than 3 times. She fulfilled 2 out of 3 criteria for acute pancreatitis. * Admited patient to general medicine floor * Vitals every shift * Started clear liquid diet after 48 hours, will advance once she tolerates. * continue 150 mL per hour Ringer lactate for now, will adjust based on her diet * IV antiemetics Zofran as needed for nausea * IV Protonix 40 daily * Pain management with Toradol and IV Dilaudid * CAT scan abdomen and pelvis without contrast showed acute interstitial pancreatitis Hypertension-lisinopril stopped. Patient is started on amlodipine 5mg. Closely monitor blood pressure. Hyperlipidemia-will hold statin for now Current smoker-nicotine patch 21 mg daily Muscle spasm-continue Flexeril 10 mg 3 times a day Alcohol dependence home medication acomprosate on hold. DVT prophylaxis subcutaneous Lovenox Full code Pain pathway ordered Problem List: 1. Acute pancreatitis Pain Ratin Pain Location: ABDOMEN Pain Goal: Remain pain free Pain Plan: TORODOL DILAUDID Tomorrow's Labs & Rationales: NONE Yessica Loo MD 10/07/17 1412: Attending MD Review Statement Attending Statement Attending MD Statement: examined this patient, discuss w/resident/PA/BRANCH ACCOUNT EXECUTIVE, agreed w/resident/PA/BRANCH ACCOUNT EXECUTIVE, reviewed EMR data (avail), discussed with nursing, discussed with case mgmt, reviewed images, amended to note Attending Assessment/Plan: Patient seen and examined, feels slightly better today. Abdominal pain is improved. Vital signs are stable and blood pressure improved. Patient will be started on clear liquid diet today and then slowly and gradually advance diet as tolerated. Continue the rest of the management. DVT px; Lovenox.
[2017-10-07] MEDS ORDERED: AMLODIPINE BESYL5 M1 PO (09:43)
--- NOTE | 2017-10-07 09:45 | Patient Discharge Instructions ---
Discharge Instructions General Discharge Information You were seen/treated for: Acute pancreatitis Special Instructions: Follow Up with PCP in one week after discharge. Diet Continue normal diet: Yes Activity Full Activity/No Limits: Yes Acute Coronary Syndrome Inclusion Criteria At DC or during hospital stay patient has or had the following: ACS DIAGNOSIS No Discharge Core Measures Meds if any: Prescribed or Continued at Discharge Meds if any: NOT Prescribed or Continued at Discharge Congestive Heart Failure Inclusion Criteria At DC or during hospital stay patient has or had the following: CHF DIAGNOSIS No Discharge Core Measures Meds if any: Prescribed or Continued at Discharge Meds if any: NOT Prescribed or Continued at Discharge Cerebrovascular accident Inclusion Criteria At DC or during hospital stay patient has or had the following: CVA/TIA Diagnosis No Discharge Core Measures Meds if any: Prescribed or Continued at Discharge Meds if any: NOT Prescribed or Continued at Discharge Venous thromboembolism Inclusion Criteria VTE Diagnosis No VTE Type NONE VTE Confirmed by (Test) NONE Discharge Core Measures - Per Current guidelines, there needs to be overlap - treatment for the first 5 days of Warfarin therapy. - If discharged on Warfarin prior to 5 days of - overlap therapy, the patient will need to be - assessed for post discharge needs including - *Post discharge parental anticoagulation - *Warfarin and/or parental anticoagulation education - *Follow up date to check INR post discharge At least 5 days overlap therapy as Inpatient No Meds if any: Prescribed or Continued at Discharge Note: Overlap Therapy is Warfarin and Anticoagulant Meds if any: NOT Prescribed or Continued at Discharge
--- NOTE | 2017-10-07 09:58 | Discharge Summary ---
Visit Information Visit Dates Admission Date: 10/05/17 Discharge Date: 10/08/2017 Hospital Course Course Attending Physician: Yessica Loo MD Primary Care Physician: Ashley Mcclain APRN Hospital Course: This is a 52-year-old female with past medical history significant for recurrent pancreatitis, alcohol dependence in the past, GERD, muscle spasms, hypertension, hyperlipidemia, current smoker, cholelithiasis status post cholecystectomy, peptic ulcer, left hip fracture presented to the hospital with chief complaint of abdominal pain, nausea, vomiting for 1 day. Vitals at the time of presentation afebrile, tachycardic 106, respiratory rate 18, blood pressure 162/88, saturating at 98 on room air. Pertinent labs WBC 13.4, hemoglobin 15, hematocrit 45, platelets 247. BEP completely normal LFTs within normal Lipid panel triglycerides 114, HDL 68, LDL 89. Amylase 713, lipase 5756 Ultrasound abdomen was normal. Received Tylenol, Dilaudid, Zofran, 1 L normal saline, lisinopril in the ER. 1. Acute pancreatitis Patient presented with typical presentation of acute pancreatitis with epigastric abdominal pain associated with nausea, vomiting, radiating to back. Vitals showed tachycardia and hypertension. Leukocyte count was elevated. Laboratory findings suggestive of elevated amylase and lipase more than 3 times. She fulfilled 2 out of 3 criteria for acute pancreatitis. She was admitted to general medicine floor for management of acute pancreatitis. CAT scan abdomen was done which showed acute interstitial pancreatitis. She had cholecystectomy in the past. Lipid panel was normal. Acute pancreatitis most likely from history of alcohol abuse. Off note she has recurrent pancreatitis history. Vitals were monitored every shift. She remained hemodynamically stable. She was nothing by mouth for 48 hours. Clear liquid diet was started and advanced. Able to tolerate her diet. She was given ringers lactate. Adequate pain management was provided. She received IV Protonix 40 daily and switched to omeprazole later. Hypertension-lisinopril stopped. Patient was started on amlodipine 5mg. BP under control. Hyperlipidemia-statin was held in the hosp. continued to the time of discharge. Current smoker-nicotine patch 21 mg daily Muscle spasm-continued Flexeril 10 mg 3 times a day Alcohol dependence home medication acomprosate on hold. DVT prophylaxis subcutaneous Lovenox Full code Allergies: Coded Allergies: morphine (UNKNOWN 10/05/17) Penicillins (Intermediate, GI UPSET 11/07/16) Pertinent Lab Results: TECHNIQUE: Real-time imaging of the right upper quadrant abdominal viscera. FINDINGS: PANCREAS: Not well evaluated due to overlying bowel gas. LIVER: A trace amount of free fluid is present in the gallbladder fossa. The liver demonstrates normal size, contour and echogenicity. No focal lesion or intrahepatic biliary duct dilatation. GALLBLADDER: Surgically absent. COMMON BILE DUCT: Normal in caliber measuring 1.1 cm in diameter, no echogenic material is present within the common bile duct to suggest retained stone. RIGHT KIDNEY: Limited evaluation due to overlying bowel gas, measurement not taken. No hydronephrosis. No renal calculi or focal parenchymal lesions. FREE FLUID: Trace near gallbladder fossa at the margin of the liver. IMPRESSION: 1. The pancreas is not visualized due to overlying bowel gas and there is limited evaluation of the right kidney also due to overlying bowel gas. 2. Trace free fluid at the margin of the liver in the gallbladder fossa. FINDINGS: LUNG BASES: Mild dependent atelectatic changes are again seen, unchanged. LIVER, GALLBLADDER, AND BILIARY TREE: The liver is normal in size, shape, and attenuation. No focal hepatic lesion on noncontrast imaging. No biliary ductal dilatation is present. The gallbladder is surgically absent with no focal collection seen in the gallbladder fossa. Proximal common bile duct is visualized and is mildly dilated at 1.1 cm as compared to 0.8 cm previously. The distal pancreatic duct in the pancreatic head is not visualized. PANCREAS: The pancreas is abnormal with enlargement and edema of the pancreatic head and body and relative atrophy of the pancreatic tail seen, which is progressive when compared to the prior exam. There is increased peripancreatic edema and stranding seen. The retroperitoneal edema is extending along the anterior pararenal space into the lateral conal fascia bilaterally and into the presacral space in the pelvis. Small amount of edema there is also seen tracking in the small bowel mesentery and along the erna hepatis. Small volume of pericapsular perihepatic fluid is also noted. Findings are consistent with the clinical impression of pancreatitis and have progressed compared to the prior exam. No defined focal fluid collection is noted. No pancreatic ductal dilatation is appreciated. There is loss of the fat plane between the pancreatic head and the duodenal C-sweep. SPLEEN, ADRENAL GLANDS: There is enlargement of the left adrenal gland with surrounding fat stranding seen, similar to the previous exam, consistent with adrenal hypertrophy. Right adrenal gland is normal. Unremarkable on noncontrast imaging. KIDNEYS AND URETERS: The kidneys are normal in size, shape, and attenuation. There is a 0.4 cm nonobstructing calcification in the lower pole of the left kidney. No hydronephrosis, hydroureter, or additional calculi seen. No perinephric stranding. BLADDER: Unremarkable. PELVIC VISCERA: Unremarkable. GASTROINTESTINAL TRACT: There is diffuse mild thickening of the duodenal C-sweep and portions of the stomach, likely reactive to the adjacent inflammatory changes in the pancreas. Similarly, there is mild thickening of the splenic flexure of the colon with mild adjacent mesenteric edema, consistent with reactive change to the acute pancreatitis. The small and large bowel are decompressed and otherwise unremarkable. The appendix is not visualized. ABDOMINAL WALL: Small amount of subcutaneous emphysema seen in the right paramedian mid abdominal wall, consistent with subcutaneous injection. No significant hernia is appreciated. LYMPH NODES, VASCULAR: Mild atherosclerotic calcifications of the abdominal aorta and bifurcation noted. No significant abdominal or pelvic adenopathy seen. OSSEOUS STRUCTURES: Three compression hip screws are seen in the left hip. No suspicious bone findings. IMPRESSION: 1. Above findings are consistent with acute interstitial pancreatitis with surrounding diffuse peripancreatic edema, small volume ascites in the abdomen and pelvis, and reactive edema and thickening of the duodenum, portions of the stomach and splenic flexure. No focal walled off fluid collection is seen. On noncontrast study, the presence or absence of pancreatic necrosis cannot be determined. No definite liquefactive intrapancreatic collection is noted. Findings have progressed when compared to 10/07/2016 and 10/29/2015. 2. Atrophy of the pancreatic tail, new from prior exams. 3. No focal walled off collection or definite evidence of pancreatic necrosis on noncontrast study. 4. Mild proximal extrahepatic ductal dilatation with nonvisualization of the distal common bile duct in the pancreatic head, likely due to extrinsic compression by pancreatic parenchymal edema/pancreatitis. Findings are progressive compared to prior studies. 5. Status post cholecystectomy. 6. Nonobstructing lower pole left renal calcification, unchanged from prior exam. Disposition Summary Disposition Principal Diagnosis: Acute pancreatitis Additional Diagnosis: Hypertension Discharge Disposition: home or self care Discharge Instructions General Discharge Information Code Status: Full Code Patient's Diet: As tolerated Patient's Activity: As tolerated Follow-Up Instructions/Appts: Please follow-up with PCP in one week after discharge Medications at Discharge Discharge Medications: Stop taking the following medications: Lisinopril (Lisinopril) 5 MG TABLET ORAL DAILY Qty = 90 Continue taking these medications: Multivitamin (One Daily Multivitamin) 1 EACH TABLET 1 Tablet ORAL DAILY Comments: NOT GIVEN IN HOSPITAL Omeprazole (Omeprazole) 40 MG CAPSULE.DR 1 Capsule ORAL DAILY Qty = 30 Comments: Last Taken: 10/08/17 Time: 0415 AM Acamprosate Calcium (Acamprosate Calcium) 333 MG TABLET.DR 2 Tablet ORAL THREE TIMES DAILY Qty = 60 Comments: NOT GIVEN IN HOSPITAL Cyclobenzaprine HCl (Cyclobenzaprine HCl) 10 MG TABLET 1 Tablet ORAL THREE TIMES DAILY Qty = 30 Comments: Last Taken: 10/08/17 Time: 0930 AM Atorvastatin Calcium (Atorvastatin Calcium) 10 MG TABLET 1 Tablet ORAL DAILY Qty = 90 Comments: NOT GIVEN IN HOSPITAL Start taking the following new medications: Amlodipine Besylate (Amlodipine Besylate) 5 MG TABLET 5 Milligram ORAL DAILY Qty = 30 No Refills Instructions: . Comments: Last Taken: 10/08/17 Time: 0930 AM Oxycodone HCl/Acetaminophen (Percocet 10-325 MG Tablet) 10 MG-325 MG TABLET 1 Tablet ORAL EVERY SIX HOURS as needed for Moderate pain Qty = 12 No Refills Comments: DID NOT RECEIVE IN HOSPITAL Copies To: Ashley Mcclain APRN
[2017-10-07 13:51] VITALS: BP 130/70
[2017-10-07 22:00] VITALS: BP 120/86
[2017-10-07 22:21] VITALS: BP 120/86
[2017-10-08 02:00] VITALS: BP 114/80
[2017-10-08 06:00] VITALS: BP 114/88
[2017-10-08 06:31] VITALS: BP 114/88
--- NOTE | 2017-10-08 06:45 | PN- Housestaff ---
Carl Medellin 10/08/17 0639: Subjective Follow-up For: acute pancreatitis Complaints: pain scale (0-10) Subjective: patient was seen and examined. She is alert awake and oriented to time place and person. No acute events noticed. Patient reports mild epigastric pain. Denied any nausea, vomiting. No melena, hematemesis, hematochezia. Vitals were stable tolerated diet well so far Review of Systems Constitutional: Reports: see HPI. Objective Last 24 Hrs of Vital Signs/I&O Vital Signs Date Time Temp Pulse Resp B/P B/P Pulse O2 O2 Flow FiO2 Mean Ox Delivery Rate 10/08 0631 97.4 61 20 114/88 94 10/07 2221 97.6 73 16 120/86 95 Room Air 10/07 2200 97.6 73 18 120/86 10/07 1351 98.2 62 20 130/70 96 Room Air 10/07 1052 76 152/90 Intake & Output 10/08 0800 10/08 0000 10/07 1600 Intake Total 1040 1620 Output Total Balance 1040 1620 Intake, IV 800 900 Intake, Oral 240 720 Patient 74.389 kg Weight Physical Exam General Appearance: Alert, Oriented X3, Cooperative, No Acute Distress Other Physical Findings: HEENT Atraumatic, PERRLA, EOMI, Mucous Membr. moist/pink Neck Supple, No JVD Lymphatic Cervical nl Cardiovascular Regular Rate, Normal S1, Normal S2, No Murmurs Lungs Clear to Auscultation, Normal Air Movement Abdomen Normal Bowel Sounds, Soft, TENDERNESS ON PALPATION Neurological Normal Speech, Strength at 5/5 X4 Ext, Sensation Intact Extremities No Clubbing, No Cyanosis, No Edema, Normal Pulses Vascular Pulses Symmetrical Current Medications: Current Medications Sig/Sina Start time Last Medication Dose Route Stop Time Status Admin Acetaminophen 1,000 MG Q6P PRN 10/05 1345 AC N/A 1 UNIT IV Amlodipine Besylate 5 MG DAILY 10/05 1341 AC 10/07 PO 1052 Benzonatate 100 MG TID 10/06 1000 AC 10/07 PO 212 Cyclobenzaprine HCl 10 MG TID 10/05 1600 AC 10/07 PO 212 Enoxaparin Sodium 40 MG DAILY 10/05 1336 AC 10/07 SC 1052 Hydromorphone HCl 1 MG Q6P PRN 10/05 1345 AC 10/08 IV 0416 Ketorolac 30 MG .STK-MED ONE 10/07 1623 DC Tromethamine IM 10/07 1624 Ketorolac 30 MG .STK-MED ONE 10/07 0754 DC Tromethamine IM 10/07 0755 Ketorolac 15 MG Q6P PRN 10/05 1345 10/07 Tromethamine IV 2347 Lactated Ringer's 1,000 ML Q6H 10/05 1900 [place] 10/08 IV 0416 Nicotine 21 MG DAILY 10/05 1415 10/07 TOP 1052 Omeprazole 40 MG DAILY AC 10/07 1440 10/08 PO 0416 Ondansetron HCl 4 MG Q6P PRN 10/05 1345 IV Pantoprazole Sodium 40 MG DAILY 10/05 1340 [place] 10/07 IV 1052 Assessment/Plan Assessment: This is a 52-year-old female with past medical history significant for recurrent pancreatitis, alcohol dependence in the past, GERD, muscle spasms, hypertension, hyperlipidemia, current smoker, cholelithiasis status post cholecystectomy, peptic ulcer, left hip fracture presented to the hospital with chief complaint of abdominal pain, nausea, vomiting for 1 day. Vitals at the time of presentation afebrile, tachycardic 106, respiratory rate 18, blood pressure 162/88, saturating at 98 on room air. Pertinent labs WBC 13.4, hemoglobin 15, hematocrit 45, platelets 247. BEP completely normal LFTs within normal Lipid panel triglycerides 114, HDL 68, LDL 89. Amylase 713, lipase 5756 Ultrasound abdomen was normal. Received Tylenol, Dilaudid, Zofran, 1 L normal saline, lisinopril in the ER. 1. Acute pancreatitis Patient presented with typical presentation of acute pancreatitis with epigastric abdominal pain associated with nausea, vomiting, radiating to back. Vitals showed tachycardia and hypertension. Leukocyte count was elevated. Laboratory findings suggestive of elevated amylase and lipase more than 3 times. She fulfilled 2 out of 3 criteria for acute pancreatitis. * Admited patient to general medicine floor * Vitals every shift * Started clear liquid diet after 48 hours, and advanced to regular diet this morning * Fluids were stopped * IV antiemetics Zofran as needed for nausea * omeprazole 40 daily * Pain management with Toradol and IV Dilaudid * CAT scan abdomen and pelvis without contrast showed acute interstitial pancreatitis Hypertension-lisinopril stopped. Patient is started on amlodipine 5mg. Closely monitor blood pressure. Hyperlipidemia-will hold statin for now Current smoker-nicotine patch 21 mg daily Muscle spasm-continue Flexeril 10 mg 3 times a day Alcohol dependence home medication acomprosate on hold. DVT prophylaxis subcutaneous Lovenox Full code Pain pathway ordered Problem List: 1. Acute pancreatitis Pain Ratin Pain Location: abd Pain Goal: Remain pain free Pain Plan: dilaudid Tomorrow's Labs & Rationales: none Yessica Loo MD 10/08/17 1346: Attending MD Review Statement Attending Statement Attending MD Statement: examined this patient, discuss w/resident/PA/NUCLEAR TECHNICIAN, agreed w/resident/PA/NUCLEAR TECHNICIAN, reviewed EMR data (avail), discussed with nursing, discussed with case mgmt, amended to note Attending Assessment/Plan: Patient seen and examined, overall doing much better. Tolerating her diet well. Blood pressure under control. Abdominal pain is improving, no nausea vomiting. Patient is medically stable for discharge home today. Will give 12 pill supply of Percocet to be taken as needed in case if she has any abdominal pain. Patient should follow-up with her primary care doctor as an outpatient.
[2017-10-08] MEDS ORDERED: PERCOCET 10-321 EACH PO (11:12)
[2017-10-08] MEDS ORDERED: AMLODIPINE BESYL5 M1 PO (11:44)
== END 2017-10-08 11:34 | DRG 282 ==
LOC: ERH 08:21 → 2NB 11:34 → ERHI 11:34 → ENRESERV 10-06 14:04 → ENTRNSPT 10-06 14:50 → EDTRNSPT 10-06 15:03 → EDTRNSPTSTS 10-06 15:03 → 2NB 10-06 15:14 → CMPTRNSPT 10-06 15:22 → 2NB 10-08 11:34
PROVIDERS: Hospitalist; Physician Assistant
DX: K85.90 Acute pancreatitis without necrosis or infection, unspecified (principal); I10 Essential (primary) hypertension; F17.200 Nicotine dependence, unspecified, uncomplicated; F10.20 Alcohol dependence, uncomplicated; K21.9 Gastro-esophageal reflux disease without esophagitis; E78.5 Hyperlipidemia, unspecified; Z90.49 Acquired absence of other specified parts of digestive tract; K27.9 Peptic ulcer, site unspecified, unspecified as acute or chronic, without hemorrhage or perforation; Z88.5 Allergy status to narcotic agent; Z88.0 Allergy status to penicillin; R00.0 Tachycardia, unspecified; K86.1 Other chronic pancreatitis
CPT/HCPCS: 2NBSP; ERO; 74176; 81001; 82436; 96361; 96374; 96375; G0480; J0131; J1650; J1885; J2405; J7120

== ENCOUNTER 2018-01-31 05:24 | Inpatient (IN) | payer OTHER ==
[~2018-01-31] VITALS: Ht 172.7 cm; Wt 71.7 kg
[~2018-01-31 05:24] MED LIST changes: +AMLODIPINE BESYL5 M1 PO; +ATORVASTATIN CA10 M1 PO; +LISINOPRIL5 M1 PO; +PERCOCET 10-321 EACH PO
--- NOTE | 2018-01-31 05:41 | ED GI/GU/ABDOMINAL COMPLAINT ---
History of Present Illness General Chief Complaint: Abdominal Pain/Flank Pain Stated Complaint: PT C/C "EXCRUCIATING" ABD PAIN X'S 3 DAYS Source: patient, old records Exam Limitations: no limitations Vital Signs & Intake/Output Vital Signs & Intake/Output Vital Signs Date Time Temp Pulse Resp B/P B/P Pulse O2 O2 Flow FiO2 Mean Ox Delivery Rate 01/31 0558 98 Room Air 01/31 0540 98.3 102 18 158/102 99 Room Air Allergies Coded Allergies: morphine (UNKNOWN 10/05/17) Penicillins (Intermediate, GI UPSET 11/07/16) Reconcile Medications Acamprosate Calcium 333 MG TABLET.DR 2 TAB PO TID Alcohol Use Disorder Amlodipine Besylate 5 MG TABLET 5 MG PO DAILY HYPERTENSION . Atorvastatin Calcium 10 MG TABLET 1 TAB PO DAILY HPL (Reported) Cyclobenzaprine HCl 10 MG TABLET 1 TAB PO TID PAIN Multivitamin (One Daily Multivitamin) 1 EACH TABLET 1 TAB PO DAILY SUPPLEMENT (Reported) Omeprazole 40 MG CAPSULE.DR 1 CAP PO DAILY REFLUX (Reported) Oxycodone HCl/Acetaminophen (Percocet 10-325 MG Tablet) 10 MG-325 MG TABLET 1 TAB PO Q6 PRN Moderate pain Triage Nurses Notes Reviewed? yes ? N Is pt currently ? No HPI: Patient presents with severe epigastric and right upper quadrant pain. Patient states it started 3 days ago with nausea vomiting and diarrhea. She began to get periumbilical and epigastric sharp pains but they were mild at the time. Last night the pain intensified to 10 out of 10. Currently the pain is sharp and stabbing and is in the epigastric and right upper quadrant area. The pain radiates through to her back. Patient states he feels very similar to when she had pancreatitis. Patient has had a cholecystectomy already. She is still nauseous but no longer vomiting. She is no longer having diarrhea. There are no fevers or chills. Patient has not had any alcohol since her last admission in September. Past History Travel History Traveled to [place] past 21 day No Medical History Any Pertinent Medical History? see below for history Neurological: NONE EENT: NONE Cardiovascular: hypertension, hyperlipidemia Respiratory: NONE Gastrointestinal: GERD, pancreatitis Hepatic: cholelithiasis Renal: NONE Musculoskeletal: fracture, sciatica, L HIP FX Psychiatric: NONE Endocrine: NONE Blood Disorders: NONE Cancer(s): NONE GEOPHYSICAL OPERATOR/Reproductive: NONE History of MRSA: No History of VRE: No History of CDIFF: No Surgical History Surgical History: cholecystectomy, tubal ligation, LEFT HIP FX, Psychosocial History Who do you live with Significant Other Services at Home None What is your primary language Macedonian Tobacco Use: Current Daily Use Daily Tobacco Use Amount/Type: => 5 Cigarettes daily ETOH Use: QUIT IN SEP 2017 Illicit Drug Use: denies illicit drug use Family History Family History, If Any: MOTHER Acute pancreatitis FATHER FH: diabetes mellitus FH: heart attack FH: stroke Hx Contributory? No Review of Systems Review of Systems Constitutional: Reports: no symptoms. EENTM: Reports: no symptoms. Respiratory: Reports: no symptoms. Cardiovascular: Reports: no symptoms. GI: Reports: see HPI, abdominal pain, diarrhea, nausea, vomiting. Genitourinary: Reports: no symptoms. Musculoskeletal: Reports: no symptoms. Skin: Reports: no symptoms. Neurological/Psychological: Reports: no symptoms. Hematologic/Endocrine: Reports: no symptoms. Immunologic/Allergic: Reports: no symptoms. All Other Systems: Reviewed and Negative Physical Exam Physical Exam General Appearance: well developed/nourished, alert, awake, anxious, moderate distress Head: atraumatic, normal appearance Eyes: Bilateral: PERRL, EOMI. Ears, Nose, Throat, Mouth: hearing grossly normal, DRY MM Neck: normal inspection, supple, full range of motion Respiratory: normal breath sounds, chest non-tender, no respiratory distress, lungs clear Cardiovascular: regular rate/rhythm, normal peripheral pulses Gastrointestinal: normal bowel sounds, guarding, tenderness, VERY TENDER RUE WITH VOLUNTARY GUARDING Back: normal inspection, normal range of motion Extremities: normal range of motion Neurologic/Psych: no motor/sensory deficits, awake, alert, oriented x 3, normal mood/affect Core Measures ACS in differential dx? No Sepsis Present: No Sepsis Focused Exam Completed? No Progress Differential Diagnosis: AMI, bowel obstruction, diverticulitis, gastritis, hepatitis, ischemic bowel, inflamm bowel dis, pancreatitis Plan of Care: Orders Procedure Date/time Status Nothing by Mouth 01/31 B Active ED Holding Orders 02/01 656 Active Admit to inpatient 02/01 656 Active Vital Signs 02/01 656 Active Code Status 02/[address] ABD & PELVIS W IV CONTRAST 01/31 06 Active URINALYSIS 01/31 530 Active TROPONIN LEVEL 01/31 530 Complete LIPASE 01/31 530 Complete ETHANOL 01/31 530 Complete COMPREHENSIVE METABOLIC PANEL 01/31 530 Complete CBC WITHOUT DIFFERENTIAL 01/31 530 Complete AMYLASE 01/31 530 Complete EKG 01/31 530 Active Current Medications Sig/Sina Start time Last Medication Dose Stop Time Status Admin Sodium Chloride 1,000 ML BOLUS ONE 01/31 06 AC 01/31 (Normal Saline 0.9%) 01/31 0659 0608 Laboratory Tests 01/31/18 0610: Anion Gap 17 H, Estimated GFR > 60, BUN/Creatinine Ratio 18.6, Glucose 175 H, Calcium 9.9, Total Bilirubin 0.9, AST 31, ALT 49, Alkaline Phosphatase 104, Troponin I < 0.01, Total Protein 7.6, Albumin 4.7, Globulin 2.9, Albumin/ Globulin Ratio 1.6, Amylase 251 H, Lipase 2208 H, CBC w Diff NO MAN DIFF REQ, RBC 4.73, MCV 93.3, MCH 31.4 H, MCHC 33.6, RDW 14.1, MPV 8.4, Gran % 79.5 H, Lymphocytes % 14.1 L, Monocytes % 5.7, Eosinophils % 0.4, Basophils % 0.3, Absolute Granulocytes 9.8 H, Absolute Lymphocytes 1.7, Absolute Monocytes 0.7 H, Absolute Eosinophils 0, Absolute Basophils 0, Serum Alcohol < 10.0 Initial ED EKG: NSR, no ST T wave changes Departure Departure Disposition: STILL A PATIENT Condition: Guarded Clinical Impression Primary Impression: Pancreatitis Referrals: Ashley Mcclain APRN (PCP/Family) Departure Forms: Customer Survey General Discharge Information Admission Note Spoke With: Yuli Wilson MD Documentation of Exam: Documentation of any treatments & extenuating circumstances including Concerns Regarding Discharge (functional status, medication knowledge or non-compliance, living conditions, etc.) that warrant an admission rather than observation: [ Nothing by mouth, IV fluids,, IV pain control, GI Consultation, Follow-Up CAT Scan to Rule Out Retained Stone]
[2018-01-31 06:13] LABS: ABSOLUTE BASOPHIL COUNT 0 /CUMM (0.0-0.2); ABSOLUTE EOSINOPHIL COUNT 0 /CUMM (0.0-0.7); ABSOLUTE GRANULOCYTE CT 9.8 /CUMM (1.4-6.5); ABSOLUTE LYMPH COUNT 1.7 /CUMM (1.2-3.4); ABSOLUTE MONOCYTE COUNT 0.7 /CUMM (0.10-0.60); BASOPHIL % 0.3 % (0.0-2.0); EOSINOPHIL % 0.4 % (0-5); GRANULOCYTE % 79.5 % (42.2-75.2); HEMATOCRIT 44.1 % (37-47); MEAN CORPUSCULAR HGB 31.4 PG (27.0-31.0); MEAN CORPUSCULAR HGB CONC 33.6 G/DL (33.0-37.0); MEAN CORPUSCULAR VOLUME 93.3 FL (81.0-99.0); MEAN PLATELET VOLUME 8.4 FL (7.4-10.4); PLATELET COUNT 276 /CUMM (130-400); RBC DISTRIBUTION WIDTH 14.1 % (11.5-14.5); RED BLOOD CELL CT 4.73 /CUMM (4.20-5.40); WHITE BLOOD CELL COUNT 12.3 /CUMM (4.8-10.8)
--- NOTE | 2018-01-31 07:31 | CT SCAN REPORT ---
EXAMINATION: CT ABDOMEN AND PELVIS WITH CONTRAST CLINICAL INFORMATION: Severe pain in right upper quadrant. Evaluate for retained stone. COMPARISON: 10/05/2017 TECHNIQUE: Multidetector volumetric imaging was performed of the abdomen and pelvis following IV administration of 95 mL of Optiray 320 intravenous contrast. Sagittal and coronal reformatted images were obtained on the technologist's workstation. DLP: 364 mGy-cm FINDINGS: LUNG BASES: Minimal atelectasis in dependent aspect of each lower lobe. No pericardial or pleural effusion. Atherosclerotic calcification of left anterior descending coronary artery. LIVER, GALLBLADDER, AND BILIARY TREE: Liver is diffusely hypodense compared to the spleen on these portal venous phase images, suggestive of steatosis. Gallbladder is surgically absent. The common bile duct is chronically, mildly dilated and measures 1.1 cm, unchanged compared to 10/05/2017. Also, the mild intrahepatic bile duct dilatation is unchanged. There are no calcified stones identified within the common duct, which shows normal distal tapering. PANCREAS: Mild peripancreatic edema is predominantly observed around the pancreatic head and body. No organized peripancreatic fluid collection. No overt pancreatic necrosis. SPLEEN: Unremarkable. ADRENAL GLANDS: Unremarkable. KIDNEYS AND URETERS: Kidneys are normal in size and enhance symmetrically. Small calyceal stone measuring up to 0.4 cm is present within the left lower pole. No hydronephrosis. A 0.4 cm hypodense focus within the lower pole of the right kidney is likely a cyst but is too small for definitive characterization. The ureters are unremarkable. BLADDER: Unremarkable. GASTROINTESTINAL TRACT: Loops of bowel are normal in caliber. The appendix is normal. Mild diverticulosis of the descending and sigmoid colon without diverticulitis. No ascites or pneumoperitoneum. ABDOMINAL WALL: No acute findings. LYMPH NODES: Normal. VASCULAR: Mild atherosclerosis of the abdominal aorta and iliac arteries without aneurysm. PELVIC VISCERA: The uterus and adnexa are unremarkable. No pelvic free fluid. OSSEOUS STRUCTURES: Degenerative disc disease of L4-L5 and L5-S1. No aggressive osseous lesions. There are 3 intact fixation screws traversing the left femoral neck. Mild osteoarthritis of the left hip. IMPRESSION: 1. There is recurrent interstitial pancreatitis. 2. Common bile duct is chronically dilated and measures up to 1.1 cm diameter, unchanged compared to 10/05/2017. 3. Diffuse hepatic steatosis. 4. Mild diverticulosis of the descending and sigmoid colon without diverticulitis. 5. Nonobstructing calyceal stone within the lower pole of the left kidney is unchanged compared to 10/05/2017.
--- NOTE | 2018-01-31 08:09 | History & Physical ---
[place] 01/31/18 0808: General Information and HPI MD Statement: I have seen and personally examined LOBITO STILES and documented this H&P. Source of Information: patient Exam Limitations: no limitations History of Present Illness: Ms. Stiles is a 52 y/o F with PMHx significant for acute pancreatitis, alcohol use disorder(last drink in September), cholelithiasis s/p cholecystectomy, GERD, and HTN who presents to the hospital with epigastric pain, nausea and vomiting for the past 3 days. 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 She has not been able to tolerate anything PO. Her pain radiates to right upper and lower quadrant. She also experienced episode of n/v/diarrhea. Per patient, her symptoms were similar to the time she had pancreatitis and she decided to come to the hospital. Her abdominal pain improved after receiving pain medication in the ED(IV dilaudid). Her nausea resolved with IV zofran. She states that her last drink was in September, denies illict drug use. Used to smoke a pack day for 20 years, quit last week. Has not been able to tolerate anything PO including her medications. Allergies/Medications Allergies: Coded Allergies: morphine (UNKNOWN 10/05/17) Penicillins (Intermediate, GI UPSET 11/07/16) Home Med list Acamprosate Calcium 333 MG TABLET.DR 2 TAB PO TID Alcohol Use Disorder Amlodipine Besylate 5 MG TABLET 5 MG PO DAILY HYPERTENSION . Atorvastatin Calcium 10 MG TABLET 1 TAB PO DAILY HPL (Reported) Multivitamin (One Daily Multivitamin) 1 EACH TABLET 1 TAB PO DAILY SUPPLEMENT (Reported) Omeprazole 40 MG CAPSULE.DR 1 CAP PO DAILY REFLUX (Reported) Past History Travel History Traveled to [place] past 21 day No Medical History Neurological: NONE EENT: NONE Cardiovascular: hypertension, hyperlipidemia Respiratory: NONE Gastrointestinal: GERD, pancreatitis Hepatic: cholelithiasis Renal: NONE Musculoskeletal: fracture, sciatica, L HIP FX Psychiatric: NONE Endocrine: NONE Blood Disorders: NONE Cancer(s): NONE DIGITAL IMAGING SPECIALIST/Reproductive: NONE History of MRSA: No History of VRE: No History of CDIFF: No Surgical History Surgical History: cholecystectomy, tubal ligation, LEFT HIP FX, Past Family/Social History Family History Relations & Conditions if any MOTHER Acute pancreatitis FATHER FH: diabetes mellitus FH: heart attack FH: stroke Psychosocial History Services at Home: None Primary Language: Maldivian ETOH Use: QUIT IN SEP 2017 Illicit Drug Use: denies illicit drug use Functional Ability ADLs Independent: dressing, eating, toileting, bathing. Ambulation: independent IADLs Independent: shopping, housework, finances, food prep, telephone, transportation , medication admin. Review of Systems Review of Systems Constitutional: Denies: chills, diaphoresis, fever, malaise, weakness, unexplained weight loss. EENTM: Reports: no symptoms. Cardiovascular: Denies: chest pain, edema, orthopena, palpitations, peripheral edema, syncope. Respiratory: Denies: cough, hemoptysis, orthopnea, short of breath, sputum production, stridor, wheezing. GI: Reports: abdominal pain, diarrhea, nausea, vomiting. Denies: bloating, constipation, distention, bowel incontinence, melena, bloody stool, changes in stool, steatorrhea. Genitourinary: Reports: no symptoms. Musculoskeletal: Reports: no symptoms. Skin: Reports: no symptoms. Neurological/Psychological: Reports: no symptoms. Hematologic/Endocrine: Reports: no symptoms. Immunologic/Allergic: Reports: no symptoms. All Other Systems: Reviewed and Negative Exam & Diagnostic Data Last 24 Hrs of Vital Signs/I&O Vital Signs Date Time Temp Pulse Resp B/P B/P Pulse O2 O2 Flow FiO2 Mean Ox Delivery Rate 01/31 0933 97.7 84 18 122/60 96 Room Air 01/31 0810 96.4 72 18 149/98 99 01/31 0558 98 Room Air 01/31 0540 98.3 102 18 158/102 99 Room Air Intake & Output 01/31 1600 01/31 0800 01/31 0000 Intake Total Output Total Balance Patient 159 lb Weight Weight Reported by Patient Measurement Method Physical Exam General Appearance Alert, Oriented X3, Cooperative, Mild Distress (in pain ) Skin No Rashes, No Breakdown, No Significant Lesion Skin Temp/Moisture Exam: Warm/Dry Sepsis Skin Exam (color): Normal for Ethnicity HEENT Atraumatic, PERRLA, EOMI, Mucous Membr. moist/pink Neck Supple, No JVD, No thryomegaly, +2 Carotid Pulse wo Bruit, No LAD Lymphatic Cervical nl Cardiovascular Regular Rate, Normal S1, Normal S2, No Murmurs, Gallops, Rubs Lungs Clear to Auscultation, Normal Air Movement Abdomen Normal Bowel Sounds, Soft, generalized abdominal tenderness more prominent in RLQ, no rebound Neurological Normal Speech, Strength at 5/5 X4 Ext, Normal Tone, Sensation Intact, Cranial Nerves 3-12 NL, Reflexes 2+ Extremities No Clubbing, No Cyanosis, No Edema, Normal Pulses, No Tenderness/ Swelling Vascular Normal Pulses, Pulses Symmetrical Last 24 Hrs of Labs/Yunier: Laboratory Tests 01/31/18 0825: Urine Color YEL, Urine Clarity CLEAR, Urine pH 6.0, Ur Specific Baring 1.010, Urine Protein NEG, Urine Ketones TRACE H, Urine Nitrite NEG, Urine Bilirubin NEG, Urine Urobilinogen 0.2, Ur Leukocyte Esterase NEG, Ur Microscopic SEDIMENT EXAMINED, Urine RBC 5-10 H, Urine WBC RARE, Ur Epithelial Cells MOD H, Urine Bacteria FEW H, Hyaline Casts RARE H, Urine Hemoglobin MOD H, Urine Glucose NEG 01/31/18 0610: Anion Gap 17 H, Estimated GFR > 60, BUN/Creatinine Ratio 18.6, Glucose 175 H, Calcium 9.9, Total Bilirubin 0.9, AST 31, ALT 49, Alkaline Phosphatase 104, Troponin I < 0.01, Total Protein 7.6, Albumin 4.7, Globulin 2.9, Albumin/ Globulin Ratio 1.6, Amylase 251 H, Lipase 2208 H, CBC w Diff NO MAN DIFF REQ, RBC 4.73, MCV 93.3, MCH 31.4 H, MCHC 33.6, RDW 14.1, MPV 8.4, Gran % 79.5 H, Lymphocytes % 14.1 L, Monocytes % 5.7, Eosinophils % 0.4, Basophils % 0.3, Absolute Granulocytes 9.8 H, Absolute Lymphocytes 1.7, Absolute Monocytes 0.7 H, Absolute Eosinophils 0, Absolute Basophils 0, Serum Alcohol < 10.0 Diagnostic Data EKG Results SR 94, QTC [address]-T wave abnormalities noted Other Results CAT - CT ABD & PELVIS W IV CONTRAST IMPRESSION: 1. There is recurrent interstitial pancreatitis. 2. Common bile duct is chronically dilated and measures up to 1.1 cm diameter, unchanged compared to 10/05/2017. 3. Diffuse hepatic steatosis. 4. Mild diverticulosis of the descending and sigmoid colon without diverticulitis. 5. Nonobstructing calyceal stone within the lower pole of the left kidney isunchanged compared to 10/05/2017. Assessment/Plan Assessment: A 52 y/o F with PMHx significant for acute pancreatitis, alcohol use disorder( last drink in September), cholelithiasis s/p cholecystectomy, GERD, and HTN who presents to the hospital with epigastric pain, nausea and vomiting for the past 3 days. Noted to have elevated lipase, CT revealing recurrent interstitial pancreatitis. Problem list: -Acute pancreatitis -leukocytosis-mild;likely reactive -HTN -H/O AUD -GERD Plan: -Monitor on GM floor -VS per protocol -NPO for now -IV fluid therapy RL 250 CC for 1 bag, has received 1 L NS in the ED, reassess after one bag and adjust the rate of fluids based on clinical course -IV dilaudid 0.4 q4 prn x 10 doses; reassess and adjust the dose -Consider GI consult if no improvement. -IV protonix -DVT PPX w/SC Lovenox -Pt is full code The case was discussed w/attending Dr. Dela Cruz. Please refer to his addendum for further recs. As Ranked By This Provider Problem List: 1. Acute pancreatitis 2. Abdominal pain Core Measures/Misc (05/29) Acute Coronary Syndrome ACS Diagnosis: No Congestive Heart Failure Congestive Heart Failure Diagnosis No Cerebrovascular Accident CVA/TIA Diagnosis: No VTE (View Protocol) VTE Risk Factors Age>40 No Mechanical VTE Prophylaxis d/t N/A MechProphylax Ordered No VTE Pharm Prophylaxis d/t NA PharmProphylax ordered Sepsis (View protocol) Sepsis Present: No Yue Dela Cruz 01/31/18 1558: Attending MD Review Statement Attending Statement Attending MD Statement: examined this patient, discuss w/resident/PA/FLOOR SCRUBBER, agreed w/resident/PA/FLOOR SCRUBBER, reviewed EMR data (avail), discussed with nursing, discussed with case mgmt Attending Assessment/Plan: acute recurrent pancreatitis- pt has h/o alcohol abuse and has been sober since sep, cont to smoke here and there and is working on quitting completely. CT abdomen shows aucte recurrent interstitial pancreatitis- cont npo for now. iv fluids and pain managment. Will get GI consult to see her in am. d/w pt the care plan.
[2018-01-31 09:33] VITALS: BP 122/60
[2018-01-31 14:00] VITALS: BP 160/90
--- NOTE | 2018-01-31 15:57 | Admission Certification ---
Admission Certification Certification Statement - As attending physician, I certify that at the time of - admission, based on clinical presentation, severity of - symptoms, need for further diagnostic testing and - therapeutic interventions, and risk of adverse outcomes - without in-hospital treatment, in my clinical assessment, - this patient requires an acute hospital stay for a minimum - of two nights or longer. I have also considered psychsocial - factors such as support system, advanced age, financial - issues, cognitive issues, and failed out-patient treatments, - past re-admission history, safety of patient, and lack of - compliance as applicable. Specific rationale supporting this admission is: acute pancreatitis
[2018-01-31 22:05] VITALS: BP 170/90
[2018-02-01 03:16] VITALS: BP 160/80
[2018-02-01 06:20] VITALS: BP 170/108
[2018-02-01 08:17] LABS: ABSOLUTE BASOPHIL COUNT 0 /CUMM (0.0-0.2); ABSOLUTE EOSINOPHIL COUNT 0.1 /CUMM (0.0-0.7); ABSOLUTE MONOCYTE COUNT 0.5 /CUMM (0.10-0.60); BASOPHIL % 0.2 % (0.0-2.0); EOSINOPHIL % 0.9 % (0-5); MEAN CORPUSCULAR HGB 31.7 PG (27.0-31.0); MEAN CORPUSCULAR HGB CONC 34.1 G/DL (33.0-37.0); MEAN CORPUSCULAR VOLUME 92.9 FL (81.0-99.0); MEAN PLATELET VOLUME 8.9 FL (7.4-10.4); PLATELET COUNT 184 /CUMM (130-400); RBC DISTRIBUTION WIDTH 14.1 % (11.5-14.5); RED BLOOD CELL CT 3.96 /CUMM (4.20-5.40); WHITE BLOOD CELL COUNT 9.6 /CUMM (4.8-10.8)
[2018-02-01 08:53] LABS: HEMATOCRIT 36.8 % (37-47)
--- NOTE | 2018-02-01 10:03 | PN- Housestaff ---
Toro Davenport 02/01/18 1003: Subjective Follow-up For: Recurrent Pancreatitis Subjective: Improve abdominal pain. Continues to complain of being constipated. No fevers overnight. Still unable to tolerate any fluids. Intermittent nausea, but no vomiting. Review of Systems Constitutional: Reports: see HPI. Objective Last 24 Hrs of Vital Signs/I&O Vital Signs Date Time Temp Pulse Resp B/P B/P Pulse O2 O2 Flow FiO2 Mean Ox Delivery Rate 02/01 0857 92 158/92 02/01 0620 98.2 90 21 170/108 94 Room Air 02/01 0316 104 160/80 96 Room Air Room Air 01/31 2205 98.1 75 19 170/90 93 Room Air 01/31 1543 80 160/90 01/31 1400 96.8 80 18 160/90 99 Room Air Intake & Output 02/01 1600 02/01 0800 02/01 0000 Intake Total 700 1430 Output Total Balance 700 1430 Intake, IV 700 950 Intake, Oral 0 480 Physical Exam General Appearance: Alert, Oriented X3, Cooperative Cardiovascular: Regular Rate, Normal S1, Normal S2 Lungs: Clear to Auscultation, Normal Air Movement Abdomen: Normal Bowel Sounds, Soft Extremities: No Clubbing, No Cyanosis Current Medications: Current Medications Sig/Sina Start time Last Medication Dose Route Stop Time Status Admin Amlodipine Besylate 5 MG DAILY 01/31 1439 AC 02/01 PO 0857 Bisacodyl 10 MG ONCE ONE 02/01 1015 DC 02/01 MT 02/01 1016 1021 Hydromorphone HCl 0.4 MG Q4P PRN 01/31 1000 AC 02/01 IV 0742 Ketorolac 30 MG Q6-PRN PRN 02/01 0545 02/01 Tromethamine IV 0535 Ketorolac 30 MG Q6P PRN 02/01 0330 DC Tromethamine IM Lactated Ringer's 1,000 ML Q10H 01/31 1445 AC 02/01 IV 0102 Lactated Ringer's 1,000 ML .[id number] 01/31 1030 DC IV 01/31 1709 Lactated Ringer's 1,000 ML .Q4H 01/31 0900 DC 01/31 IV 01/31 1259 1115 Morphine Sulfate 2 MG ONCE ONE 01/31 2130 DC 01/31 IV 01/31 2131 2142 Nicotine 14 MG DAILY 01/31 1837 02/01 TOP 0854 Ondansetron HCl 4 MG Q6P PRN 01/31 1345 AC 01/31 IV 1932 Pantoprazole Sodium 40 MG DAILY 01/31 0929 AC 02/01 IV 0854 Patient Medication 1 ED ONE ONE 01/31 1715 DC 01/31 Teaching ED 01/31 1716 1754 Potassium Chloride 40 MEQ ONCE ONE 02/01 1400 AC PO 02/01 1401 Potassium Chloride 40 MEQ ONCE ONE 02/01 1000 DC 02/01 PO 02/01 1001 1013 Last 24 Hrs of Lab/Yunier Results Last 24 Hrs of Labs/Mics: Laboratory Tests 02/01/18 0605: Anion Gap 15, Estimated GFR > 60, BUN/Creatinine Ratio 18.0, Magnesium Pending, CBC w Diff NO MAN DIFF REQ, RBC 3.96 L, MCV 92.9, MCH 31.7 H, MCHC 34.1, RDW 14.1, MPV 8.9, Gran % 84.0 H, Lymphocytes % 10.0 L, Monocytes % 4.9, Eosinophils % 0.9, Basophils % 0.2, Absolute Granulocytes 8.0 H, Absolute Lymphocytes 1.0 L, Absolute Monocytes 0.5, Absolute Eosinophils 0.1, Absolute Basophils 0 Assessment/Plan Assessment: 52-year-old woman with past medical history of acute pancreatitis, alcohol use disorder (last drink in September), cholelithiasis status post cholecystectomy, GERD, hypertension presented to ED with epigastric pain, nausea and vomiting of 3 days' duration. She was found to have elevated lipase and a CT revealing of interstitial pancreatitis. 1. Acute pancreatitis. Aggressive fluid hydration. Monitor crit and electrolytes. Optimal pain control. Treat constipation, while on IV narcotics. Continue when necessary antiemetics. Replete potassium. GI consult placed. 2. Hypertension. Her pressure still elevated, continues to be on amlodipine 5 mg. Continue to monitor, will increase dose if stays persistently high. Start DVT prophylaxis with Lovenox. Full code. Yue Dela Cruz 02/01/18 1135: Assessment/Plan Problem List: 1. Acute pancreatitis 2. Abdominal pain Pain Ratin Pain Location: abdomen Pain Goal: Pain 4 or less Pain Plan: on pain meds Tomorrow's Labs & Rationales: ordered. Attending MD Review Statement Attending Statement Attending MD Statement: examined this patient, discuss w/resident/PA/CRYPTOLOGIC TECHNICIAN OPERATOR/ANALYST, agreed w/resident/PA/CRYPTOLOGIC TECHNICIAN OPERATOR/ANALYST, reviewed EMR data (avail), discussed with nursing, discussed with case mgmt Attending Assessment/Plan: acute pancreatitis recurrent- will get GI eval. cont her npo for now as she still having abdominal pain and nausea. constipation- give suppository and if tolerates will give po miralax later. Hypokalemia- replace iv and po and will recheck in am. will f/u on mag level. dw pt and shoe caser the care plan.
--- NOTE | 2018-02-01 10:25 | Cons- Gastroenterology ---
General Information and HPI Consulting Request Date of Consult: 02/01/18 Requested By: Yue Dela Cruz MD Reason for Consult: Pancreatitis, abdominal pain. Source of Information: patient, old records Exam Limitations: no limitations History of Present Illness: Ms. Villalpando is a 52 year old female with a history of etoh abuse from which she has been sober since September of this year, gallstones s/p CCY many years ago who presented to last night with complaints of worsening abdominal pain. The patient notes that for the past 3 days she has been having severe midepigastric abdominal pain which radiates out diffusely and also to her back. She notes the pain is similar to her attack of pancreatitis that she was admitted for in September of this year. She has not had any fevers or chills. She has been having some bilious vomiting without hematemesis. She also notes some diarrhea prior to arriving to the hospital, but this has since resolved. She has not had any rectal bleeding and she denies any jagdish-colored stool or dark urine. She adamantly denies any recent alcohol use stating that she has been on Antabuse. Here she is afebrile and hemodynamically stable. She was given IV narcotics for pain control and she was noted to have pancreatitis on a CAT scan without obvious necrosis for which she was admitted, kept nothing by mouth, and given IV fluids with lactated Ringer solution overnight. She notes having significant abdominal pain last night but this morning she feels somewhat improved. She is still not ready to eat though. Allergies/Medications Allergies: Coded Allergies: Penicillins (Intermediate, GI UPSET 11/07/16) Home Med List: Acamprosate Calcium 333 MG TABLET.DR 2 TAB PO TID Alcohol Use Disorder Amlodipine Besylate 5 MG TABLET 5 MG PO DAILY HYPERTENSION . Atorvastatin Calcium 10 MG TABLET 1 TAB PO DAILY HPL (Reported) Multivitamin (One Daily Multivitamin) 1 EACH TABLET 1 TAB PO DAILY SUPPLEMENT (Reported) Omeprazole 40 MG CAPSULE.DR 1 CAP PO DAILY REFLUX (Reported) Current Medications: Current Medications Sig/Sina Start time Last Medication Dose Route Stop Time Status Admin Amlodipine Besylate 5 MG DAILY 01/31 1439 AC 02/01 PO 0857 Bisacodyl 10 MG ONCE ONE 02/01 1015 DC 02/01 VT 02/01 1016 1021 Hydromorphone HCl 0.4 MG Q4P PRN 01/31 1000 AC 02/01 IV 0742 Ketorolac 30 MG Q6-PRN PRN 02/01 0545 02/01 Tromethamine IV 0535 Ketorolac 30 MG Q6P PRN 02/01 0330 DC Tromethamine IM Lactated Ringer's 1,000 ML Q10H 01/31 1445 AC 02/01 IV 0102 Lactated Ringer's 1,000 ML .Q6H40M 01/31 1030 DC IV 01/31 1709 Lactated Ringer's 1,000 ML .Q4H 01/31 0900 DC 01/31 IV 01/31 1259 1115 Morphine Sulfate 2 MG ONCE ONE 01/31 2130 DC 01/31 IV 01/31 2131 2142 Nicotine 14 MG DAILY 01/31 1837 02/01 TOP 0854 Ondansetron HCl 4 MG Q6P PRN 01/31 1345 AC 01/31 IV 1932 Pantoprazole Sodium 40 MG DAILY 01/31 0929 02/01 IV 0854 Patient Medication 1 ED ONE ONE 01/31 1715 DE 01/31 Teaching ED 01/31 1716 1754 Potassium Chloride 40 MEQ ONCE ONE 02/01 1400 AC PO 02/01 1401 Potassium Chloride 40 MEQ ONCE ONE 02/01 1000 DE 02/01 PO 02/01 1001 1013 Past History Travel History Traveled to [place] past 21 day No Medical History Neurological: NONE EENT: NONE Cardiovascular: hypertension, hyperlipidemia Respiratory: NONE Gastrointestinal: GERD, pancreatitis Hepatic: cholelithiasis Renal: NONE Musculoskeletal: fracture, sciatica, L HIP FX Psychiatric: NONE Endocrine: NONE Blood Disorders: NONE Cancer(s): NONE 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 Ambulation: independent IADLs Independent: shopping, housework, finances, food prep, telephone, transportation , medication admin. Review of Systems Review of Systems Constitutional: Reports: chills. Denies: fever, malaise, weakness. EENTM: Denies: no symptoms. Cardiovascular: Reports: chest pain, palpitations. Denies: edema, orthopena. Respiratory: Denies: no symptoms. GI: Reports: see HPI. Genitourinary: Denies: no symptoms. Musculoskeletal: Reports: back pain. Skin: Denies: no symptoms. Neurological/Psychological: Reports: anxiety. Hematologic/Endocrine: Denies: no symptoms. Immunologic/Allergic: Denies: no symptoms. All Other Systems: Reviewed and Negative Exam & Diagnostic Data Vital Signs and I&O Vital Signs Date Time Temp Pulse Resp B/P B/P Pulse O2 O2 Flow FiO2 Mean Ox Delivery Rate 02/01 0857 92 158/92 02/01 0620 98.2 90 21 170/108 94 Room Air 02/01 0316 104 160/80 96 Room Air Room Air 01/31 2205 98.1 75 19 170/90 93 Room Air 01/31 1543 80 160/90 01/31 1400 96.8 80 18 160/90 99 Room Air Intake & Output 02/01 1600 02/01 0400 01/31 1600 01/31 0400 01/30 1600 01/30 0400 Intake Total 700 1430 1000 Output Total Balance 700 1430 1000 Intake, IV 783 918 0802 Intake, Oral 0 480 Patient 159 lb Weight Weight Reported by Patient Measurement Method Physical Exam General Appearance: well developed/nourished, alert, awake, anxious, mild distress Head: atraumatic, normal appearance Eyes: Bilateral: normal appearance. Ears, Nose, Throat: normal pharynx, normal ENT inspection Neck: normal inspection, supple, full range of motion Respiratory: normal breath sounds, chest non-tender, no respiratory distress Cardiovascular: regular rate/rhythm Gastrointestinal: normal bowel sounds, soft, tenderness Rectal: deferred Back: normal inspection, normal range of motion Extremities: normal inspection, no edema Skin: intact, normal color, warm/dry Results Pertinent Lab Results: Laboratory Tests 02/01 01/31 0605 0825 Chemistry Sodium (137 - 145 mmol/L) 133 L Potassium (3.5 - 5.1 mmol/L) 2.9 *L Chloride (98 - 107 mmol/L) 91 L Carbon Dioxide (22 - 30 mmol/L) 26 Anion Gap (5 - 16) 15 BUN (7 - 17 mg/dL) 9 Creatinine (0.5 - 1.0 mg/dL) 0.5 Estimated GFR (>60 ml/min) > 60 BUN/Creatinine Ratio (7 - 25 %) 18.0 Magnesium (1.6 - 2.3 mg/dL) Pending Hematology CBC w Diff NO MAN DIFF REQ WBC (4.8 - 10.8 /CUMM) 9.6 RBC (4.20 - 5.40 /CUMM) 3.96 L Hgb (12.0 - 16.0 G/DL) 12.5 Hct (37 - 47 %) 36.8 L MCV (81.0 - 99.0 FL) 92.9 MCH (27.0 - 31.0 PG) 31.7 H MCHC (33.0 - 37.0 G/DL) 34.1 RDW (11.5 - 14.5 %) 14.1 Plt Count (130 - 400 /CUMM) 184 MPV (7.4 - 10.4 FL) 8.9 Gran % (42.2 - 75.2 %) 84.0 H Lymphocytes % (20.5 - 51.1 %) 10.0 L Monocytes % (1.7 - 9.3 %) 4.9 Eosinophils % (0 - 5 %) 0.9 Basophils % (0.0 - 2.0 %) 0.2 Absolute Granulocytes (1.4 - 6.5 /CUMM) 8.0 H Absolute Lymphocytes (1.2 - 3.4 /CUMM) 1.0 L Absolute Monocytes (0.10 - 0.60 /CUMM) 0.5 Absolute Eosinophils (0.0 - 0.7 /CUMM) 0.1 Absolute Basophils (0.0 - 0.2 /CUMM) 0 Urines Urine Color (YEL,AMB,STR) YEL Urine Clarity (CLEAR) CLEAR Urine pH (5.0 - 8.0) 6.0 Ur Specific [place] (1.001 - 1.035) 1.010 Urine Protein (NEG,<30 MG/DL) NEG Urine Ketones (NEG) TRACE H Urine Nitrite (NEG) NEG Urine Bilirubin (NEG) NEG Urine Urobilinogen (0.1 - 1.0 EU/dl) 0.2 Ur Leukocyte Esterase (NEG) NEG Ur Microscopic SEDIMENT EXAMINED Urine RBC (0 - 5 /HPF) 5-10 H Urine WBC (0 - 2 /HPF) RARE Ur Epithelial Cells (NONE,FEW) MOD H Urine Bacteria (NEG/NONE) FEW H Hyaline Casts (0/LPF) RARE H Urine Hemoglobin (NEG) MOD H Urine Glucose (N MG/DL) NEG 01/31 0610 Chemistry Sodium (137 - 145 mmol/L) 135 L Potassium (3.5 - 5.1 mmol/L) 3.8 Chloride (98 - 107 mmol/L) 95 L Carbon Dioxide (22 - 30 mmol/L) 24 Anion Gap (5 - 16) 17 H BUN (7 - 17 mg/dL) 13 Creatinine (0.5 - 1.0 mg/dL) 0.7 Estimated GFR (>60 ml/min) > 60 BUN/Creatinine Ratio (7 - 25 %) 18.6 Glucose (65 - 99 mg/dL) 175 H Calcium (8.4 - 10.2 mg/dL) 9.9 Total Bilirubin (0.2 - 1.3 mg/dL) 0.9 AST (14 - 36 U/L) 31 ALT (9 - 52 U/L) 49 Alkaline Phosphatase (<127 U/L) 104 Troponin I (< 0.11 ng/ml) < 0.01 Total Protein (6.3 - 8.2 g/dL) 7.6 Albumin (3.5 - 5.0 g/dL) 4.7 Globulin (1.9 - 4.2 gm/dL) 2.9 Albumin/Globulin Ratio (1.1 - 2.2 %) 1.6 Amylase (30 - 110 U/L) 251 H Lipase (23 - 300 U/L) 2208 H Hematology CBC w Diff NO MAN DIFF REQ WBC (4.8 - 10.8 /CUMM) 12.3 H RBC (4.20 - 5.40 /CUMM) 4.73 Hgb (12.0 - 16.0 G/DL) 14.8 Hct (37 - 47 %) 44.1 MCV (81.0 - 99.0 FL) 93.3 MCH (27.0 - 31.0 PG) 31.4 H MCHC (33.0 - 37.0 G/DL) 33.6 RDW (11.5 - 14.5 %) 14.1 Plt Count (130 - 400 /CUMM) 276 MPV (7.4 - 10.4 FL) 8.4 Gran % (42.2 - 75.2 %) 79.5 H Lymphocytes % (20.5 - 51.1 %) 14.1 L Monocytes % (1.7 - 9.3 %) 5.7 Eosinophils % (0 - 5 %) 0.4 Basophils % (0.0 - 2.0 %) 0.3 Absolute Granulocytes (1.4 - 6.5 /CUMM) 9.8 H Absolute Lymphocytes (1.2 - 3.4 /CUMM) 1.7 Absolute Monocytes (0.10 - 0.60 /CUMM) 0.7 H Absolute Eosinophils (0.0 - 0.7 /CUMM) 0 Absolute Basophils (0.0 - 0.2 /CUMM) 0 Toxicology Serum Alcohol (<10 MG/DL) < 10.0 Imaging/Other Studies: SERVICE DATE: 01/31/18 EXAM TYPE: CAT - CT ABD & PELVIS W IV CONTRAST EXAMINATION: CT ABDOMEN AND PELVIS WITH CONTRAST CLINICAL INFORMATION: Severe pain in right upper quadrant. Evaluate for retained stone. COMPARISON: 10/05/2017 TECHNIQUE: Multidetector volumetric imaging was performed of the abdomen and pelvis following IV administration of 95 mL of Optiray 320 intravenous contrast. Sagittal and coronal reformatted images were obtained on the technologist's workstation. DLP: 364 mGy-cm FINDINGS: LUNG BASES: Minimal atelectasis in dependent aspect of each lower lobe. No pericardial or pleural effusion. Atherosclerotic calcification of left anterior descending coronary artery. LIVER, GALLBLADDER, AND BILIARY TREE: Liver is diffusely hypodense compared to the spleen on these portal venous phase images, suggestive of steatosis. Gallbladder is surgically absent. The common bile duct is chronically, mildly dilated and measures 1.1 cm, unchanged compared to 10/05/2017. Also, the mild intrahepatic bile duct dilatation is unchanged. There are no calcified stones identified within the common duct, which shows normal distal tapering. PANCREAS: Mild peripancreatic edema is predominantly observed around the pancreatic head and body. No organized peripancreatic fluid collection. No overt pancreatic necrosis. SPLEEN: Unremarkable. ADRENAL GLANDS: Unremarkable. KIDNEYS AND URETERS: Kidneys are normal in size and enhance symmetrically. Small calyceal stone measuring up to 0.4 cm is present within the left lower pole. No hydronephrosis. A 0.4 cm hypodense focus within the lower pole of the right kidney is likely a cyst but is too small for definitive characterization. The ureters are unremarkable. BLADDER: Unremarkable. GASTROINTESTINAL TRACT: Loops of bowel are normal in caliber. The appendix is normal. Mild diverticulosis of the descending and sigmoid colon without diverticulitis. No ascites or pneumoperitoneum. ABDOMINAL WALL: No acute findings. LYMPH NODES: Normal. VASCULAR: Mild atherosclerosis of the abdominal aorta and iliac arteries without aneurysm. PELVIC VISCERA: The uterus and adnexa are unremarkable. No pelvic free fluid. OSSEOUS STRUCTURES: Degenerative disc disease of L4-L5 and L5-S1. No aggressive osseous lesions. There are 3 intact fixation screws traversing the left femoral neck. Mild osteoarthritis of the left hip. IMPRESSION: 1. There is recurrent interstitial pancreatitis. 2. Common bile duct is chronically dilated and measures up to 1.1 cm diameter, unchanged compared to 10/05/2017. 3. Diffuse hepatic steatosis. 4. Mild diverticulosis of the descending and sigmoid colon without diverticulitis. 5. Nonobstructing calyceal stone within the lower pole of the left kidney is unchanged compared to 10/05/2017. Assessment/Plan Assessment/Recommendations: Assessment: Ms. Little is a 52-year-old female with a history of alcoholic pancreatitis for which she was last admitted in September of this year who returns with recurrent symptoms and has a moderately elevated lipase and recurrent pancreatitis on CAT scan. She reports not to be drinking and her liver function tests and continued use of Antabuse seemed to support this so the etiology of her pancreatitis still needs to be determined, but it is possible she may have a structural lesion such as a pancreatic duct stricture from prior attacks which may have predisposed her to this attack. As her gallbladder was removed many years ago and her LFTs are normal a retained passed stone is less likely. She was noted to have a dilated CBD on her CAT scan, however this was stable from imaging done on her hospitalization in September and it is likely physiologic secondary to her having a cholecystectomy many years ago. As she also notes her brother and mother had pancreatitis it is possible she may have hereditary pancreatitis, however it sounds like her mother's pancreatitis was from gallstones and her brother's pancreatitis was likely from alcohol and I would therefore hold off on investigating other causes of pancreatitis at this time. Further imaging with an MRCP or even an EUS may be reasonable to consider, but this is not urgent and can likely be pursued as an outpatient. She is currently doing relatively well from a pancreatitis standpoint, albeit she still has a significant amount of pain. Her decreasing BUN though it is a good prognostic indicator and she otherwise appears well. Recommendations: 1. Keep nothing by mouth for now. 2. Continue IV fluids at maintenance rate and reassess volume status in the am 3. Follow electrolytes and replete as needed. 4. If she has any diarrhea while an inpatient will check stool studies to rule out infectious causes of diarrhea and I would also check a fecal fat and fecal elastase to look for evidence of chronic pancreatitis. 5. Administer analgesia as needed. 6. Administer antiemetics as needed. 7. Would address smoking cessation as smoking can be as detrimental to the pancreas as alcohol. 8. Follow daily LFTs. 9. Would hold off on further imaging unless she spikes a high temperature or has a bump in her liver function tests or WBC. 10. If her triglycerides have not been checked recently would add that to her admission labs if that is possible, but would not bother checking now as she has been NPO for over 24 hours which could potentially result in a false negative level. I will continue to follow this patient and make further recommendations based on her clinical course and results of repeat blood work. Problem List: 1. Pancreatitis 2. Alcohol dependence 3. Nicotine dependence 4. Acute pancreatitis Copies To: Ashley Mcclain APRN Consult Acknowledgment - Thank you for your consult request.
--- NOTE | 2018-02-01 11:48 | RADIOLOGY REPORT ---
EXAMINATION: XR PORTABLE CHEST CLINICAL INFORMATION: Pancreatitis. Evaluate for congestion/effusion. COMPARISON: Chest 04/05/2017. TECHNIQUE: Portable AP 80 degree semierect view of the chest was obtained. FINDINGS: No significant abnormality is noted involving the heart, lungs, mediastinum, bony thorax or soft tissues. IMPRESSION: No acute cardiopulmonary process.
[2018-02-01 15:11] VITALS: BP 140/80
[2018-02-01 22:42] VITALS: BP 140/90
[2018-02-02 06:02] VITALS: BP 130/76
[2018-02-02 09:19] LABS: ABSOLUTE BASOPHIL COUNT 0 /CUMM (0.0-0.2); ABSOLUTE EOSINOPHIL COUNT 0.3 /CUMM (0.0-0.7); ABSOLUTE GRANULOCYTE CT 6.6 /CUMM (1.4-6.5); ABSOLUTE LYMPH COUNT 1.5 /CUMM (1.2-3.4); ABSOLUTE MONOCYTE COUNT 0.4 /CUMM (0.10-0.60); BASOPHIL % 0.5 % (0.0-2.0); EOSINOPHIL % 2.9 % (0-5); GRANULOCYTE % 75.5 % (42.2-75.2); HEMATOCRIT 34.2 % (37-47); MEAN CORPUSCULAR HGB 32.1 PG (27.0-31.0); MEAN CORPUSCULAR HGB CONC 34.5 G/DL (33.0-37.0); MEAN CORPUSCULAR VOLUME 92.9 FL (81.0-99.0); MEAN PLATELET VOLUME 9.1 FL (7.4-10.4); PLATELET COUNT 182 /CUMM (130-400); RBC DISTRIBUTION WIDTH 13.8 % (11.5-14.5); RED BLOOD CELL CT 3.68 /CUMM (4.20-5.40); WHITE BLOOD CELL COUNT 8.8 /CUMM (4.8-10.8)
--- NOTE | 2018-02-02 09:36 | PN- Housestaff ---
Toro Davenport 02/02/18 0935: Subjective Follow-up For: Recurrent Pancreatitis Subjective: Improve abdominal pain. States being this morning, we will try clear liquid diet. Nausea improved. Had a soft bowel movement 2 yesterday. Review of Systems Constitutional: Reports: see HPI. Objective Last 24 Hrs of Vital Signs/I&O Vital Signs Date Time Temp Pulse Resp B/P B/P Pulse O2 O2 Flow FiO2 Mean Ox Delivery Rate 02/02 0851 72 136/78 02/02 0602 98.8 67 20 130/76 96 Room Air 02/01 2242 97.7 84 20 140/90 95 Room Air 02/01 1511 97.4 92 20 140/80 95 Intake & Output 02/02 1600 02/02 0800 02/02 0000 Intake Total 820 800 Output Total Balance 820 800 Intake, IV 700 800 Intake, Oral 120 Patient 158 lb Weight Physical Exam General Appearance: Alert, Oriented X3, Cooperative Cardiovascular: Regular Rate, Normal S1, Normal S2 Lungs: Clear to Auscultation, Normal Air Movement Abdomen: Normal Bowel Sounds, Soft, No Tenderness Extremities: No Clubbing, No Cyanosis, No Edema Current Medications: Current Medications Sig/Sina Start time Last Medication Dose Route Stop Time Status Admin Amlodipine Besylate 5 MG DAILY 01/31 1439 02/02 PO 0851 Hydromorphone HCl 0.4 MG Q4P PRN 01/31 1000 IN 02/02 IV 0314 Hydromorphone HCl 0 .STK-MED ONE 01/31 0613 CAN .ROUTE Ketorolac 30 MG Q6-PRN PRN 02/01 0545 02/02 Tromethamine IV 0736 Lactated Ringer's 1,000 ML Q10H 01/31 1445 AC 02/02 IV 0309 Magnesium Sulfate 1 GM Q2H 02/01 1300 DC 02/01 Dextrose/Water 100 ML IV 02/01 1659 1644 Nicotine 14 MG DAILY 01/31 1837 02/02 TOP 0849 Ondansetron HCl 4 MG Q6P PRN 01/31 1345 AC 01/31 IV 1932 Pantoprazole Sodium 40 MG DAILY 01/31 0929 02/02 IV 0849 Patient Medication 1 ED ONE ONE 02/01 1145 DC Teaching ED 02/01 1146 Potassium Chloride 40 MEQ ONCE ONE 02/01 1400 DC 05/23 PO 02/01 1401 1434 Last 24 Hrs of Lab/Yunier Results Last 24 Hrs of Labs/Mics: Laboratory Tests 02/02/18 0610: Anion Gap 11, Estimated GFR > 60, BUN/Creatinine Ratio 20.0, Total Bilirubin 0.8 , Direct Bilirubin 0.3, AST 17, ALT 29, Alkaline Phosphatase 72, Total Protein 5.7 L, Albumin 3.3 L, CBC w Diff NO MAN DIFF REQ, RBC 3.68 L, MCV 92.9, MCH 32.1 H, MCHC 34.5, RDW 13.8, MPV 9.1, Gran % 75.5 H, Lymphocytes % 17.0 L, Monocytes % 4.1, Eosinophils % 2.9, Basophils % 0.5, Absolute Granulocytes 6.6 H, Absolute Lymphocytes 1.5, Absolute Monocytes 0.4, Absolute Eosinophils 0.3, Absolute Basophils 0 Assessment/Plan Assessment: 52-year-old woman with past medical history of acute pancreatitis, alcohol use disorder (last drink in September), cholelithiasis status post cholecystectomy, GERD, hypertension presented to ED with epigastric pain, nausea and vomiting of 3 days' duration. She was found to have elevated lipase and a CT revealing of interstitial pancreatitis. 1. Acute pancreatitis. Continue fluids for now. Clear liquids. Advance as tolerated. Monitor crit and electrolytes. Optimal pain control. Treat constipation, while on IV narcotics. Continue when necessary antiemetics. Monitor electrolytes. 2. Hypertension. Blood pressure well controlled. DVT prophylaxis with Lovenox. Full code. Problem List: 1. Acute alcoholic pancreatitis Pain Ratin Pain Location: Abdomen Pain Goal: Remain pain free Pain Plan: PRN Narcs and Toradol Tomorrow's Labs & Rationales: CBC BEP LFTS Yue Dela Cruz 02/02/18 1028: Attending MD Review Statement Attending Statement Attending MD Statement: examined this patient, discuss w/resident/PA/DIAL MOUNTER, agreed w/resident/PA/DIAL MOUNTER, reviewed EMR data (avail), discussed with nursing, discussed with case mgmt Attending Assessment/Plan: Acute recurrent pancreatitis- pt tolerating liquids. will advance to full liquid diet this afternoon and see how she tolerates. Appreciated GI consult. D/w pt the care plan. If cont to do better. possible dc tomorrow home. Pt advised to quit smoking.
--- NOTE | 2018-02-02 14:10 | PN- Gastroenterology ---
Assessment/Plan GI Assessment/Recommendations: Assessment: Ms. Villalpando is a 52 year old female with recurrent acute pancreatitis from which she is currently doing well now tolearing liquids and her pain is markedly improved. While I am not entirely certain what exacerbated this current episode as she apparently is no longer drinking and she doesn't have a GB I suspect she may have some structural abnromality in her pancreas from years of etoh abuse leading to chronic pancreatitis. Regardless, as she is currently doing well I don't feel that alternative causes of pancreatitis need to be sought at this time. Recommendations: 1. Advance diet as tolearted 2. Analgesia as needed 3. If she is tolearing a PO diet would d/c IVF 4. She has been counseled to stop smoking 5. To consider an outpatient EUS or repeat ct scan/MRI with pancreatic mass protocol as an outpatient I will sign off at this time and ask that GI be recontacted for any new or persistent GI issues which may arise on this hospitalization. Problem List: 1. Alcohol dependence 2. Pancreatitis 3. Abdominal pain Subjective Subjective: pt feeling much better today. pain markedly improved and she is tolerating liquids. no significant vomiting. Objective Vital Signs and I&Os Vital Signs Date Time Temp Pulse Resp B/P B/P Pulse O2 O2 Flow FiO2 Mean Ox Delivery Rate 02/02 0851 72 136/78 02/02 0602 98.8 67 20 130/76 96 Room Air 02/01 2242 97.7 84 20 140/90 95 Room Air 02/01 1511 97.4 92 20 140/80 95 Intake & Output 02/02 1600 02/02 0400 02/01 1600 02/01 0400 01/31 1600 01/31 0400 Intake Total 840 624 0540 1430 1000 Output Total Balance 867 106 5928 1430 1000 Intake, IV 643 351 2828 950 1000 Intake, Oral 120 30 480 Patient 158 lb 159 lb Weight Weight Reported by Patient Measurement Method Physical Exam General Appearance: well developed/nourished, no apparent distress, alert, awake , comfortable Head: atraumatic, normal appearance Neck: supple Respiratory: normal breath sounds, chest non-tender, no respiratory distress Cardiovascular: regular rate/rhythm Abdomen: normal bowel sounds, soft, non-tender Extremities: no edema Current Medications: Current Medications Sig/Sina Start time Last Medication Dose Route Stop Time Status Admin Amlodipine Besylate 5 MG DAILY 01/31 1439 AC 02/02 PO 0851 Hydromorphone HCl 0.4 MG Q4P PRN 01/31 1000 DC 02/02 IV 0314 Ketorolac 30 MG Q6-PRN PRN 02/01 0545 02/02 Tromethamine IV 1347 Lactated Ringer's 1,000 ML Q10H 01/31 1445 02/02 IV 0309 Magnesium Sulfate 1 GM Q2H 02/01 1300 DC 02/01 Dextrose/Water 100 ML IV 02/01 1659 1644 Nicotine 14 MG DAILY 01/31 1837 02/02 TOP 0849 Ondansetron HCl 4 MG Q6P PRN 01/31 1345 01/31 IV 1932 Pantoprazole Sodium 40 MG DAILY 01/31 0929 02/02 IV 0849 Results Pertinent Lab Results: Laboratory Tests 02/02 02/01 0610 0605 Chemistry Sodium (137 - 145 mmol/L) 133 L 133 L Potassium (3.5 - 5.1 mmol/L) 3.8 2.9 *L Chloride (98 - 107 mmol/L) 96 L 91 L Carbon Dioxide (22 - 30 mmol/L) 26 26 Anion Gap (5 - 16) 11 15 BUN (7 - 17 mg/dL) 12 9 Creatinine (0.5 - 1.0 mg/dL) 0.6 0.5 Estimated GFR (>60 ml/min) > 60 > 60 BUN/Creatinine Ratio (7 - 25 %) 20.0 18.0 Magnesium (1.6 - 2.3 mg/dL) 1.4 L Total Bilirubin (0.2 - 1.3 mg/dL) 0.8 Direct Bilirubin (< 0.4 mg/dL) 0.3 AST (14 - 36 U/L) 17 ALT (9 - 52 U/L) 29 Alkaline Phosphatase (<127 U/L) 72 Total Protein (6.3 - 8.2 g/dL) 5.7 L Albumin (3.5 - 5.0 g/dL) 3.3 L Triglycerides (<150 mg/dL) 120 Hematology CBC w Diff NO MAN DIFF REQ NO MAN DIFF REQ WBC (4.8 - 10.8 /CUMM) 8.8 9.6 RBC (4.20 - 5.40 /CUMM) 3.68 L 3.96 L Hgb (12.0 - 16.0 G/DL) 11.8 L 12.5 Hct (37 - 47 %) 34.2 L 36.8 L MCV (81.0 - 99.0 FL) 92.9 92.9 MCH (27.0 - 31.0 PG) 32.1 H 31.7 H MCHC (33.0 - 37.0 G/DL) 34.5 34.1 RDW (11.5 - 14.5 %) 13.8 14.1 Plt Count (130 - 400 /CUMM) 182 184 MPV (7.4 - 10.4 FL) 9.1 8.9 Gran % (42.2 - 75.2 %) 75.5 H 84.0 H Lymphocytes % (20.5 - 51.1 %) 17.0 L 10.0 L Monocytes % (1.7 - 9.3 %) 4.1 4.9 Eosinophils % (0 - 5 %) 2.9 0.9 Basophils % (0.0 - 2.0 %) 0.5 0.2 Absolute Granulocytes (1.4 - 6.5 /CUMM) 6.6 H 8.0 H Absolute Lymphocytes (1.2 - 3.4 /CUMM) 1.5 1.0 L Absolute Monocytes (0.10 - 0.60 /CUMM) 0.4 0.5 Absolute Eosinophils (0.0 - 0.7 /CUMM) 0.3 0.1 Absolute Basophils (0.0 - 0.2 /CUMM) 0 0 /01/31 0825 0610 Chemistry Sodium (137 - 145 mmol/L) 135 L Potassium (3.5 - 5.1 mmol/L) 3.8 Chloride (98 - 107 mmol/L) 95 L Carbon Dioxide (22 - 30 mmol/L) 24 Anion Gap (5 - 16) 17 H BUN (7 - 17 mg/dL) 13 Creatinine (0.5 - 1.0 mg/dL) 0.7 Estimated GFR (>60 ml/min) > 60 BUN/Creatinine Ratio (7 - 25 %) 18.6 Glucose (65 - 99 mg/dL) 175 H Calcium (8.4 - 10.2 mg/dL) 9.9 Total Bilirubin (0.2 - 1.3 mg/dL) 0.9 AST (14 - 36 U/L) 31 ALT (9 - 52 U/L) 49 Alkaline Phosphatase (<127 U/L) 104 Troponin I (< 0.11 ng/ml) < 0.01 Total Protein (6.3 - 8.2 g/dL) 7.6 Albumin (3.5 - 5.0 g/dL) 4.7 Globulin (1.9 - 4.2 gm/dL) 2.9 Albumin/Globulin Ratio (1.1 - 2.2 %) 1.6 Amylase (30 - 110 U/L) 251 H Lipase (23 - 300 U/L) 2208 H Hematology CBC w Diff NO MAN DIFF REQ WBC (4.8 - 10.8 /CUMM) 12.3 H RBC (4.20 - 5.40 /CUMM) 4.73 Hgb (12.0 - 16.0 G/DL) 14.8 Hct (37 - 47 %) 44.1 MCV (81.0 - 99.0 FL) 93.3 MCH (27.0 - 31.0 PG) 31.4 H MCHC (33.0 - 37.0 G/DL) 33.6 RDW (11.5 - 14.5 %) 14.1 Plt Count (130 - 400 /CUMM) 276 MPV (7.4 - 10.4 FL) 8.4 Gran % (42.2 - 75.2 %) 79.5 H Lymphocytes % (20.5 - 51.1 %) 14.1 L Monocytes % (1.7 - 9.3 %) 5.7 Eosinophils % (0 - 5 %) 0.4 Basophils % (0.0 - 2.0 %) 0.3 Absolute Granulocytes (1.4 - 6.5 /CUMM) 9.8 H Absolute Lymphocytes (1.2 - 3.4 /CUMM) 1.7 Absolute Monocytes (0.10 - 0.60 /CUMM) 0.7 H Absolute Eosinophils (0.0 - 0.7 /CUMM) 0 Absolute Basophils (0.0 - 0.2 /CUMM) 0 Toxicology Serum Alcohol (<10 MG/DL) < 10.0 Urines Urine Color (YEL,AMB,STR) YEL Urine Clarity (CLEAR) CLEAR Urine pH (5.0 - 8.0) 6.0 Ur Specific Bell (1.001 - 1.035) 1.010 Urine Protein (NEG,<30 MG/DL) NEG Urine Ketones (NEG) TRACE H Urine Nitrite (NEG) NEG Urine Bilirubin (NEG) NEG Urine Urobilinogen (0.1 - 1.0 EU/dl) 0.2 Ur Leukocyte Esterase (NEG) NEG Ur Microscopic SEDIMENT EXAMINED Urine RBC (0 - 5 /HPF) 5-10 H Urine WBC (0 - 2 /HPF) RARE Ur Epithelial Cells (NONE,FEW) MOD H Urine Bacteria (NEG/NONE) FEW H Hyaline Casts (0/LPF) RARE H Urine Hemoglobin (NEG) MOD H Urine Glucose (N MG/DL) NEG
[2018-02-02 14:14] VITALS: BP 116/70
--- NOTE | 2018-02-02 14:29 | Patient Discharge Instructions ---
Discharge Instructions General Discharge Information You were seen/treated for: Recurrent panreatitis Watch for these problems: Worsening abdominal pain Nausea Vomiting Special Instructions: Please follow up with PCP as an outpatient. Please follow up with GI as an outpatient. Smoking is likely aggravating your recurent episodes and will worsen your disease. Please strongly consider quitting smoking. Diet Continue normal diet: Yes Activity Full Activity/No Limits: Yes Acute Coronary Syndrome Inclusion Criteria At DC or during hospital stay patient has or had the following: ACS DIAGNOSIS No Discharge Core Measures Meds if any: Prescribed or Continued at Discharge Meds if any: NOT Prescribed or Continued at Discharge Congestive Heart Failure Inclusion Criteria At DC or during hospital stay patient has or had the following: CHF DIAGNOSIS No Discharge Core Measures Meds if any: Prescribed or Continued at Discharge Meds if any: NOT Prescribed or Continued at Discharge Cerebrovascular accident Inclusion Criteria At DC or during hospital stay patient has or had the following: CVA/TIA Diagnosis No Discharge Core Measures Meds if any: Prescribed or Continued at Discharge Meds if any: NOT Prescribed or Continued at Discharge Venous thromboembolism Inclusion Criteria VTE Diagnosis No VTE Type NONE VTE Confirmed by (Test) NONE Discharge Core Measures - Per Current guidelines, there needs to be overlap - treatment for the first 5 days of Warfarin therapy. - If discharged on Warfarin prior to 5 days of - overlap therapy, the patient will need to be - assessed for post discharge needs including - *Post discharge parental anticoagulation - *Warfarin and/or parental anticoagulation education - *Follow up date to check INR post discharge At least 5 days overlap therapy as Inpatient Yes Meds if any: Prescribed or Continued at Discharge Note: Overlap Therapy is Warfarin and Anticoagulant Meds if any: NOT Prescribed or Continued at Discharge
[2018-02-02 22:29] VITALS: BP 120/70
[2018-02-03 05:34] VITALS: BP 120/82
[2018-02-03 08:29] VITALS: BP 128/92
--- NOTE | 2018-02-03 08:45 | PN- Housestaff ---
Toro Davenport 02/03/18 0845: Subjective Follow-up For: Recurrent Pancreatitis Subjective: Feels well. Review of Systems Constitutional: Reports: see HPI. Objective Last 24 Hrs of Vital Signs/I&O Vital Signs Date Time Temp Pulse Resp B/P B/P Pulse O2 O2 Flow FiO2 Mean Ox Delivery Rate 02/03 0829 66 128/92 02/03 0534 98.3 89 20 120/82 98 Room Air 02/03 0000 Room Air 02/02 2229 98.3 79 18 120/70 94 Room Air Intake & Output 02/03 1600 02/03 0800 02/03 0000 Intake Total Output Total Balance Number 0 0 Bowel Movements Physical Exam General Appearance: Alert, Oriented X3, Cooperative Cardiovascular: Regular Rate, Normal S1, Normal S2 Lungs: Clear to Auscultation, Normal Air Movement Abdomen: Normal Bowel Sounds, Soft, No Tenderness Neurological: Normal Speech, Strength at 5/5 X4 Ext Extremities: No Clubbing, No Cyanosis, No Edema Vascular: Normal Pulses Current Medications: Current Medications Sig/Sina Start time Last Medication Dose Route Stop Time Status Admin Amlodipine Besylate 5 MG DAILY 01/31 1439 [facility] 02/03 PO 0829 Ketorolac 30 MG .STK-MED ONE 02/03 0256 DC Tromethamine IM 02/03 0257 Ketorolac 30 MG .STK-MED ONE 02/02 2042 DC Tromethamine IM 02/02 2043 Ketorolac 30 MG Q6-PRN PRN 02/01 0545 [facility] 02/03 Tromethamine IV 0829 Lactated Ringer's 1,000 ML Q10H 01/31 1445 [facility] 02/02 IV 0309 Nicotine 14 MG DAILY 01/31 1837 [facility] 02/03 TOP 0829 Omeprazole 40 MG ONCE ONE 02/03 0830 MA 02/03 PO 02/03 0831 0837 Ondansetron HCl 4 MG Q6P PRN 01/31 1345 [facility] 01/31 IV 1932 Pantoprazole Sodium 40 MG DAILY 01/31 0929 MA 02/02 IV 0849 Patient Medication 1 ED ONE ONE 02/02 1545 DC Teaching ED 02/02 1546 Last 24 Hrs of Lab/Yunier Results Last 24 Hrs of Labs/Mics: Laboratory Tests 02/03/18 0745: Anion Gap 8, Estimated GFR > 60, BUN/Creatinine Ratio 16.7, CBC w Diff NO MAN DIFF REQ, RBC 3.48 L, MCV 94.3, MCH 32.2 H, MCHC 34.1, RDW 13.6, MPV 9.7, Gran % 79.1 H, Lymphocytes % 13.2 L, Monocytes % 5.5, Eosinophils % 2.0, Basophils % 0.2, Absolute Granulocytes 7.1 H, Absolute Lymphocytes 1.2, Absolute Monocytes 0.5, Absolute Eosinophils 0.2, Absolute Basophils 0 Assessment/Plan Assessment: 52-year-old woman with past medical history of acute pancreatitis, alcohol use disorder (last drink in September), cholelithiasis status post cholecystectomy, GERD, hypertension presented to ED with epigastric pain, nausea and vomiting of 3 days' duration. She was found to have elevated lipase and a CT revealing of interstitial pancreatitis. 1. Acute pancreatitis. Tolerating diet, stable for DC. Follow up with Gi and PCP as outpatient. 2. Hypertension. Blood pressure well controlled. DVT prophylaxis with Lovenox. Full code. Problem List: 1. Hyponatremia Pain Ratin Pain Location: Abdomen Pain Goal: Remain pain free Pain Plan: PRN Tomorrow's Labs & Rationales: Not needed Shubham Womack MD 02/03/18 1634: Attending MD Review Statement Attending Statement Attending MD Statement: examined this patient, discuss w/resident/PA/PRODUCE CLERK, agreed w/resident/PA/PRODUCE CLERK, reviewed EMR data (avail), discussed with nursing, discussed with case mgmt, amended to note Attending Assessment/Plan: The patient was seen and discussed with house staff, nursing, and case management. Tolerating regular diet w/o pain. OK to discharge to home today.
[2018-02-03 08:57] LABS: ABSOLUTE BASOPHIL COUNT 0 /CUMM (0.0-0.2); ABSOLUTE EOSINOPHIL COUNT 0.2 /CUMM (0.0-0.7); ABSOLUTE GRANULOCYTE CT 7.1 /CUMM (1.4-6.5); ABSOLUTE LYMPH COUNT 1.2 /CUMM (1.2-3.4); ABSOLUTE MONOCYTE COUNT 0.5 /CUMM (0.10-0.60); BASOPHIL % 0.2 % (0.0-2.0); GRANULOCYTE % 79.1 % (42.2-75.2); HEMATOCRIT 32.8 % (37-47); MEAN CORPUSCULAR HGB 32.2 PG (27.0-31.0); MEAN CORPUSCULAR HGB CONC 34.1 G/DL (33.0-37.0); MEAN CORPUSCULAR VOLUME 94.3 FL (81.0-99.0); MEAN PLATELET VOLUME 9.7 FL (7.4-10.4); RBC DISTRIBUTION WIDTH 13.6 % (11.5-14.5); RED BLOOD CELL CT 3.48 /CUMM (4.20-5.40)
[2018-02-03 10:11] LABS: PLATELET COUNT 188 /CUMM (130-400)
--- NOTE | 2018-02-03 10:51 | Discharge Summary ---
Visit Information Visit Dates Admission Date: 01/31/18 Discharge Date: 02/03/18 Hospital Course Course Attending Physician: Jose De Jesus CLAYTON,Yue Calderon Primary Care Physician: Ashley Mcclain APRN Hospital Course: Ms. Villalpando is a 52 year old female with a history of etoh abuse from which she has been sober since September of this year, gallstones s/p CCY many years ago who presented to on the night of 01/31/18 with complaints of worsening abdominal pain. Three days [employer] patient having severe midepigastric abdominal pain which was radiating out diffusely and also to her back. She noted the pain is similar to her attack of pancreatitis that she was admitted for in September of this year. . During admission did not any fevers or chills. Initially, she did have some bilious vomiting without hematemesis. She also noted some diarrhea prior to arriving to the hospital, but this resolved. She adamantly denied any recent alcohol use stating that she has been on Antabuse. While on floors she remained afebrile and hemodynamically stable. She was noted to have pancreatitis on a CAT scan without obvious necrosis for which she was admitted, kept nothing by mouth, and given IV fluids with lactated Ringer solution overnight. She was given IV narcotics for pain control. Her diet was slowly advanced, and on 02/03/18 she showed complete resolution of her symptoms and she was deemed stable for discharge home with close follow up with GI and PCP. Full code DVT ppx was with Lovenox Allergies: Coded Allergies: Penicillins (Intermediate, GI UPSET 11/07/16) Disposition Summary Disposition Principal Diagnosis: Acute Pancreatitis Additional Diagnosis: None Discharge Disposition: home or self care Discharge Instructions General Discharge Information Code Status: Full Code Patient's Diet: Regular Patient's Activity: As tolerated Follow-Up Instructions/Appts: Follow up with GI - To consider an outpatient EUS or repeat ct scan/MRI with pancreatic mass protocol as an outpatient Follow up with PCP as an outpatient. Medications at Discharge Discharge Medications: Continue taking these medications: Multivitamin (One Daily Multivitamin) 1 EACH TABLET 1 Tablet ORAL DAILY Comments: NOT GIVEN IN HOSPITAL Omeprazole (Omeprazole) 40 MG CAPSULE. 1 Capsule ORAL DAILY Qty = 30 Comments: NOT GIVEN IN HOSPITAL PT REPORTS TAKING 2 NEXIUM LATE EVENING ON 02/02/18 Acamprosate Calcium (Acamprosate Calcium) 333 MG TABLET. 2 Tablet ORAL THREE TIMES DAILY Qty = 60 Comments: NOT GIVEN IN HOSPITAL Atorvastatin Calcium (Atorvastatin Calcium) 10 MG TABLET 1 Tablet ORAL DAILY Qty = 90 Comments: NOT GIVEN IN HOSPITAL Amlodipine Besylate (Amlodipine Besylate) 5 MG TABLET 5 Milligram ORAL DAILY Qty = 30 Instructions: . Comments: Last Taken: 02/03/18 Time: 8:30 AM Copies To: Ashley Mcclain APRN; Zechariah CLAYTON,Leydi Crum Attending MD Review Statement Documenting Attending: Jose De Jesus CLAYTON,Yue Calderon Other Findings: The patient was followed by Dr. Dela Cruz. I saw on the day of discharge. Agree with the summary as above.
== END 2018-02-03 11:00 | DRG 282 ==
LOC: ERH 05:24 → 2NA 06:56 → ERHI 06:56 → 2NA 06:56 → ENRESERV 08:01 → ENTRNSPT 08:49 → EDTRNSPTSTS 08:57 → EDTRNSPT 08:57 → 2NA 09:08 → CMPTRNSPT 09:28 → 2NA 02-01 10:22 → ENPENDDIS 02-03 08:38 → 2NA 02-03 11:00
PROVIDERS: Emergency Medicine; Internal Medicine Hematology & Oncology; Student in an Organized Health Care Education/Training Program
DX: K85.90 Acute pancreatitis without necrosis or infection, unspecified (principal); I10 Essential (primary) hypertension; K21.9 Gastro-esophageal reflux disease without esophagitis; Z72.89 Other problems related to lifestyle; F17.210 Nicotine dependence, cigarettes, uncomplicated; F10.11 Alcohol abuse, in remission; F15.129 Other stimulant abuse with intoxication, unspecified
CPT/HCPCS: 2NAP; 36592; 71045; 74177; 81001; 82436; 93005; 93010; 96361; 96374; 96375; G0480; J1885; J2405; J7120

== ENCOUNTER 2018-04-04 10:13 | Emergency (ER) | payer OTHER ==
[~2018-04-04] VITALS: Ht 172.7 cm; Wt 70.3 kg
--- NOTE | 2018-04-04 10:28 | ED GENERAL ADULT ---
History of Present Illness General Chief Complaint: Low Back Pain/Injury Stated Complaint: BACK PAIN Source: patient Exam Limitations: no limitations Vital Signs & Intake/Output Vital Signs & Intake/Output Vital Signs Date Time Temp Pulse Resp B/P B/P Pulse O2 O2 Flow FiO2 Mean Ox Delivery Rate 04/04 1229 98.1 68 15 160/92 99 Room Air Room Air 04/04 1041 Room Air Room Air 04/04 1016 97.4 77 20 144/100 97 Room Air Allergies Coded Allergies: Penicillins (Intermediate, GI UPSET 11/07/16) Reconcile Medications Amlodipine Besylate 5 MG TABLET 5 MG PO DAILY HYPERTENSION . Atorvastatin Calcium 10 MG TABLET 1 TAB PO DAILY HPL (Reported) Methocarbamol (Robaxin-750) 750 MG TABLET 1 TAB PO TID PRN PAIN Tramadol HCl 50 MG TABLET 1 TAB PO Q6P PRN PAIN Triage Note: PT TO ED C/O LEFT SIDED UPPER BACK PAIN X 1.5 DAYS S/P MOVING LOGS. HAS BEEN TAKING ALEVE WITH NO RELIEF. STATES PAIN RADIATES UNDER LEFT BREAST. DECLINING MEDS IN TRIAGE. Triage Nurses Notes Reviewed? yes Onset: Abrupt Duration: day(s): (2), constant, continues in ED, getting worse Timing: single episode today Injury Environment: home Severity: mild, moderate Severity Numbers: 7 No Modifying Factors: none Modifying Factors: Worsens With: movement. Associated Symptoms: back pain LMP (ages 10-50): unknown : No Patient currently breastfeeds: No HPI: 52-year-old female history of hypertension hyperlipidemia pancreatitis alcohol abuse presents for evaluation of left-sided back pain. The pain started about 2 days ago after she had been doing some heavy lifting. There is no direct trauma. The pain is located in the left lower back and radiates in the left ribs. It is worse with movement and deep inspiration. No hemoptysis no chest pain no lower extremity edema no numbness tingling or bowel or bladder dysfunction urinary symptoms or fever. She denies any history of back problems. She denies any drug or alcohol use currently. She has no similar history of heart disease. No shortness of breath. She has been taking Aleve without any improvement. No nausea vomiting or abdominal pain. (Rachid Kahn) Past History Travel History Traveled to [place] past 21 day No Medical History Any Pertinent Medical History? see below for history Neurological: NONE EENT: NONE Cardiovascular: hypertension, hyperlipidemia Respiratory: NONE Gastrointestinal: GERD, pancreatitis Hepatic: cholelithiasis Renal: NONE Musculoskeletal: fracture, sciatica, L HIP FX Psychiatric: NONE Endocrine: NONE Blood Disorders: NONE Cancer(s): NONE SHIRT BANDER/Reproductive: NONE History of MRSA: No History of VRE: No History of CDIFF: No Surgical History Surgical History: cholecystectomy, tubal ligation, LEFT HIP FX, Psychosocial History Who do you live with Significant Other Services at Home None What is your primary language Turkish Tobacco Use: Current Daily Use Daily Tobacco Use Amount/Type: => 5 Cigarettes daily ETOH Use: occasional use Illicit Drug Use: denies illicit drug use Family History Family History, If Any: MOTHER Acute pancreatitis FATHER FH: diabetes mellitus FH: heart attack FH: stroke Hx Contributory? No (Rachid Kahn) Review of Systems Review of Systems Constitutional: Reports: no symptoms. EENTM: Reports: no symptoms. Respiratory: Reports: no symptoms. Cardiovascular: Reports: no symptoms. GI: Reports: no symptoms. Genitourinary: Reports: no symptoms. Musculoskeletal: Reports: see HPI, back pain, muscle pain, muscle stiffness. Skin: Reports: no symptoms. Neurological/Psychological: Reports: no symptoms. Hematologic/Endocrine: Reports: no symptoms. Immunologic/Allergic: Reports: no symptoms. All Other Systems: Reviewed and Negative (Rachid Kahn) Physical Exam Physical Exam General Appearance: well developed/nourished, no apparent distress, alert, awake Head: atraumatic, normal appearance Eyes: Bilateral: normal appearance, PERRL, EOMI. Ears, Nose, Throat: hearing grossly normal Neck: normal inspection, supple, full range of motion Respiratory: normal breath sounds, chest non-tender, no respiratory distress, lungs clear Cardiovascular: regular rate/rhythm, normal peripheral pulses Peripheral Pulses: 2+ radial (R), 2+ radial (L) Gastrointestinal: normal bowel sounds, soft, non-tender, no organomegaly Back: normal inspection, normal range of motion, THORACIC AND LUMBAR PARASPINAL MUSCLES ARE TENDER TO PALPATION LEFT SIDE. lEFT LATERAL RIBS ARE TENDER TO PALPATION NO BRUISING SWELLING OR ABRASIONS NO MIDLINE TENDERNESS NO STEP-OFFS OR DEFORMITIES Extremities: normal inspection, normal range of motion, no edema Neurologic/Psych: no motor/sensory deficits, awake, alert, oriented x 3, normal gait, normal mood/affect Skin: intact, normal color, warm/dry Core Measures ACS in differential dx? No CVA/TIA Diagnosis: No Sepsis Present: No Sepsis Focused Exam Completed? No (Lawrence HAWLEY,Rachid) Progress Differential Diagnoses I considered the following diagnoses in my evaluation of the patient: [Muscle strain, herniated disc, fracture, pancreatitis, acute coronary syndrome, AAA, PE ] Plan of Care: Orders Procedure Date/time Status TROPONIN LEVEL 04/04 1026 Complete LIPASE 04/04 1026 Complete ETHANOL 04/04 1026 Complete COMPREHENSIVE METABOLIC PANEL 04/04 1026 Complete CBC WITHOUT DIFFERENTIAL 04/04 1026 Complete EKG 04/04 1026 Active Laboratory Tests 04/04/18 1107: Anion Gap 13, Estimated GFR > 60, BUN/Creatinine Ratio 35.0 H, Glucose 166 H, Calcium 9.7, Total Bilirubin 0.3, AST 24, ALT 34, Alkaline Phosphatase 104, Troponin I < 0.01, Total Protein 6.5, Albumin 4.0, Globulin 2.5, Albumin/ Globulin Ratio 1.6, Lipase 526 H, CBC w Diff NO MAN DIFF REQ, RBC 4.22, MCV 93.4, MCH 31.5 H, MCHC 33.8, RDW 14.0, MPV 9.2, Gran % 74.1, Lymphocytes % 18.6 L, Monocytes % 4.3, Eosinophils % 2.8, Basophils % 0.2, Absolute Granulocytes 6.1, Absolute Lymphocytes 1.5, Absolute Monocytes 0.4, Absolute Eosinophils 0.2, Absolute Basophils 0, Serum Alcohol < 10.0 04/04/18 1026: Methadone Screen Cancelled, Barbiturate Screen Cancelled, Ur Phencyclidine Scrn Cancelled, Amphetamines Screen Cancelled, U Benzodiazepines Scrn Cancelled, Urine Cocaine Screen Cancelled, Urine Cannabis Screen Cancelled, Urine Color Cancelled, Urine Clarity Cancelled, Urine pH Cancelled, Ur Specific [place] Cancelled, Urine Protein Cancelled, Urine Ketones Cancelled, Urine Nitrite Cancelled, Urine Bilirubin Cancelled, Urine Urobilinogen Cancelled, Ur Leukocyte Esterase Cancelled, Ur Microscopic Cancelled, Urine Hemoglobin Cancelled, Urine Glucose Cancelled Patient is here for evaluation of left-sided back and rib pain. This pain started several days ago after doing heavy lifting. Patient denies any history of previous back problems. The pain is very reproducible with range of motion and palpation. EKG is unremarkable. Basic labs and chest x-ray was ordered patient medicated with Tylenol Flexeril and tramadol. Blood work is unremarkable. Lipase is mildly elevated but patient has a history of acute pancreatitis she is no longer having symptoms now. CHEST X-RAY is clear. Patient is feeling better after being medicated. She has a steady gait. Patient will be given a prescription for tramadol and Robaxin to use as needed for pain. Follow up with the primary care doctor as soon as possible. Discussed return precautions patient agrees the plan Diagnostic Imaging: Viewed by Me: Radiology Read. Discussed w/RAD: Radiology Read. CXR Impression: PATIENT: LOBITO STILES PRESENT AGE: 52 PATIENT ACCOUNT NO: [id number] : 67 LOCATION: [facility] ORDERING PHYSICIAN: Rachid HAWLEY SERVICE DATE: 04/04/18 EXAM TYPE: RAD - XRY-PORTABLE CHEST XRAY EXAMINATION: XR PORTABLE CHEST CLINICAL INFORMATION: Epigastric pain. Presumptive diagnosis of pneumonia, CHF. COMPARISON: Chest x-ray dated 2017, 04/05/2017. TECHNIQUE: Portable AP semierect view of the chest was obtained. FINDINGS: The cardiomediastinal silhouette is within normal limits in size. Low lung volumes are seen with crowding of bronchovascular markings in the lung bases. No focal consolidation, effusion or pneumothorax is seen. Bony structures are unremarkable. IMPRESSION: Low lung volumes. No evidence of pneumonia or CHF. DICTATED BY: Kalyani Mandujano MD DATE/TIME DICTATED:04/04/181142 IC DESIGN MANAGER:TUAN DATE/TIME TRANSCRIBED:04/04/181142 Initial ED EKG: normal sinus rhythm, no ST T wave changes Prior EKG: unchanged (Rachid Kahn) Departure Departure Disposition: HOME OR SELF CARE Condition: Stable Clinical Impression Primary Impression: Low back pain Qualifiers: Chronicity: acute Back pain laterality: bilateral Sciatica presence : without sciatica Qualified Code: M54.5 - Low back pain Referrals: Ashley Mcclain APRN (PCP/Family) Additional Instructions: REST AVOID EXCESSIVE PHYSICAL ACITIVTY HEAVY LIFTING OR BENDING. CONTINUE ALEVE 500MG EVERY 12 HOURS NEEDED FOR PAIN. ROBAXIN AND TRAMADOL FOR SEVERE PAIN. THESE MAY CASUE DROWISNESS, FOLLOW UP WITH YOUR DOCOTOR IN 2 DAYS SCHEDULED. RETURN WITH ANY CONCERNS. Departure Forms: Customer Survey General Discharge Information Prescriptions: Current Visit Scripts Methocarbamol (Robaxin-750) 1 TAB PO TID PRN PAIN #30 TAB Tramadol HCl 1 TAB PO Q6P PRN PAIN #10 TAB (Rachid Kahn) PA/SPA ASSOCIATE Co-Sign Statement Statement: ED Attending supervision documentation- [] I saw and evaluated the patient. I have also reviewed all the pertinent lab results and diagnostic results. I agree with the findings and the plan of care as documented in the PA's/SPA ASSOCIATE's documentation. [x] I have reviewed the ED Record and agree with the PA's/SPA ASSOCIATE's documentation. [] Additions or exceptions (if any) to the PAs/SPA ASSOCIATE's note and plan are summarized below: [] (Aida CLAYTON,[facility]) Critical Care Note Critical Care Note Critical Care Time: non-applicable (Rachid Kahn)
[2018-04-04 11:46] LABS: ABSOLUTE BASOPHIL COUNT 0 /CUMM (0.0-0.2); ABSOLUTE EOSINOPHIL COUNT 0.2 /CUMM (0.0-0.7); ABSOLUTE GRANULOCYTE CT 6.1 /CUMM (1.4-6.5); ABSOLUTE LYMPH COUNT 1.5 /CUMM (1.2-3.4); ABSOLUTE MONOCYTE COUNT 0.4 /CUMM (0.10-0.60); BASOPHIL % 0.2 % (0.0-2.0); EOSINOPHIL % 2.8 % (0-5); GRANULOCYTE % 74.1 % (42.2-75.2); HEMATOCRIT 39.4 % (37-47); MEAN CORPUSCULAR HGB 31.5 PG (27.0-31.0); MEAN CORPUSCULAR HGB CONC 33.8 G/DL (33.0-37.0); MEAN CORPUSCULAR VOLUME 93.4 FL (81.0-99.0); MEAN PLATELET VOLUME 9.2 FL (7.4-10.4); PLATELET COUNT 208 /CUMM (130-400); RED BLOOD CELL CT 4.22 /CUMM (4.20-5.40); WHITE BLOOD CELL COUNT 8.2 /CUMM (4.8-10.8)
--- NOTE | 2018-04-04 11:48 | RADIOLOGY REPORT ---
EXAMINATION: XR PORTABLE CHEST CLINICAL INFORMATION: Epigastric pain. Presumptive diagnosis of pneumonia, CHF. COMPARISON: Chest x-ray dated 02/01/2018, 04/05/2017. TECHNIQUE: Portable AP semierect view of the chest was obtained. FINDINGS: The cardiomediastinal silhouette is within normal limits in size. Low lung volumes are seen with crowding of bronchovascular markings in the lung bases. No focal consolidation, effusion or pneumothorax is seen. Bony structures are unremarkable. IMPRESSION: Low lung volumes. No evidence of pneumonia or CHF.
[2018-04-04] MEDS ORDERED: TRAMADOL HCL50 M1 PO ×2 (12:17→12:18)
[2018-04-04] MEDS ORDERED: ROBAXIN-750750 M1 PO (12:17)
[2018-04-04 12:29] VITALS: BP 160/92
== END 2018-04-04 12:31 ==
LOC: ERH 10:13
PROVIDERS: Physician Assistant Medical
DX: M54.5 Low back pain (principal); F10.10 Alcohol abuse, uncomplicated; R07.81 Pleurodynia
CPT/HCPCS: 71045; 80307; 93005; 93010; G0480

== ENCOUNTER 2018-05-25 07:03 | Emergency (ER) | payer OTHER ==
[~2018-05-25] VITALS: Ht 172.7 cm; Wt 68.9 kg
[~2018-05-25 07:03] MED LIST changes: +ROBAXIN-750750 M1 PO
--- NOTE | 2018-05-25 07:19 | ED GENERAL ADULT ---
History of Present Illness General Chief Complaint: Abdominal Pain/Flank Pain Stated Complaint: KIDNEY STONES Source: patient Exam Limitations: no limitations Vital Signs & Intake/Output Vital Signs & Intake/Output Vital Signs Date Time Temp Pulse Resp B/P B/P Pulse O2 O2 Flow FiO2 Mean Ox Delivery Rate 05/25 1155 85 126/84 05/25 0920 98.4 140 15 113/76 100 Room Air 05/25 0704 96.5 93 18 153/92 98 Room Air Room Air Allergies Coded Allergies: Penicillins (Intermediate, GI UPSET 05/25/18) Reconcile Medications Amlodipine Besylate 5 MG TABLET 5 MG PO DAILY HYPERTENSION . Atorvastatin Calcium 10 MG TABLET 1 TAB PO DAILY HPL (Reported) Triage Note: PT TO ED WITH C/O RIGHT FLANK PAIN X 2 DAYS, "I TOOK A FALL A COUPLE DAYS BEFORE, SO I THOUGHT I PULLED SOMETHING". PT DENIES N/V/D, C/O "I'M GASSY AND HAVE NO APPETITE". Triage Nurses Notes Reviewed? yes Onset: Abrupt Duration: day(s): Timing: recent history HPI: 05/25/18 7:26 Am 53-year-old female presents to the emergency department complaining of bilateral flank pain. The patient was seen in urgent care center aproximally 48 hours ago and had an x-ray that showed bilateral calcifications and was told she had kidney stones. She also has blood in her urine. She now presents with ongoing severe pain 9 out of 10. She admits to anorexia but no nausea or vomiting. She denies any abdominal pain. She denies any significant past medical history. She has a past surgical history for cholecystectomy. Past History Travel History Traveled to [place] past 21 day No Medical History Any Pertinent Medical History? see below for history Neurological: NONE EENT: NONE Cardiovascular: hypertension, hyperlipidemia Respiratory: NONE Gastrointestinal: GERD, pancreatitis Hepatic: cholelithiasis Renal: NONE Musculoskeletal: fracture, sciatica, L HIP FX Psychiatric: NONE Endocrine: NONE Blood Disorders: NONE Cancer(s): NONE LAB MANAGER/Reproductive: NONE History of MRSA: No History of VRE: No History of CDIFF: No Surgical History Surgical History: cholecystectomy, tubal ligation, LEFT HIP FX, Psychosocial History Who do you live with Significant Other Services at Home None What is your primary language Vincentian Tobacco Use: Current Daily Use Daily Tobacco Use Amount/Type: => 5 Cigarettes daily ETOH Use: denies use Illicit Drug Use: denies illicit drug use Family History Family History, If Any: MOTHER Acute pancreatitis FATHER FH: diabetes mellitus FH: heart attack FH: stroke Hx Contributory? No Review of Systems Review of Systems Constitutional: Denies: fever. EENTM: Denies: visual changes. Respiratory: Denies: short of breath. Cardiovascular: Denies: chest pain. GI: Denies: abdominal pain, nausea, vomiting. Genitourinary: Reports: no symptoms. Musculoskeletal: Reports: no symptoms. Skin: Reports: no symptoms. Neurological/Psychological: Reports: no symptoms. Hematologic/Endocrine: Reports: no symptoms. Immunologic/Allergic: Reports: no symptoms. Physical Exam Physical Exam General Appearance: well developed/nourished, alert, awake, anxious, moderate distress Head: atraumatic, normal appearance Eyes: Bilateral: normal appearance, PERRL, EOMI. Ears, Nose, Throat: normal pharynx, normal ENT inspection Neck: normal inspection, supple Respiratory: normal breath sounds, chest non-tender, no respiratory distress Cardiovascular: regular rate/rhythm Peripheral Pulses: 4+ radial (R), 4+ radial (L) Gastrointestinal: soft, non-tender Back: normal range of motion Extremities: no edema Neurologic/Psych: no motor/sensory deficits, awake, alert, oriented x 3 Skin: intact, normal color, warm/dry Core Measures ACS in differential dx? No CVA/TIA Diagnosis: No Sepsis Present: No Sepsis Focused Exam Completed? No Progress Differential Diagnoses I considered the following diagnoses in my evaluation of the patient: [Renal colic, pyelonephritis, muscular strain, disc herniation] Plan of Care: Orders Procedure Date/time Status Add-on Test (ER Only) 05/25 1155 Active LIPASE 05/25 0736 Complete CULTURE,URINE 05/25 0725 Active URINE 05/25 0725 Complete URINALYSIS 05/25 0725 Complete COMPREHENSIVE METABOLIC PANEL 05/25 07 Complete CBC WITHOUT DIFFERENTIAL 05/25 725 Complete Laboratory Tests 05/25/18 0743: Urine Color YEL, Urine Clarity CLEAR, Urine pH 6.0, Ur Specific [place] 1.020, Urine Protein NEG, Urine Ketones NEG, Urine Nitrite NEG, Urine Bilirubin NEG, Urine Urobilinogen 0.2, Ur Leukocyte Esterase NEG, Ur Microscopic SEDIMENT EXAMINED, Urine RBC 3-5, Urine WBC RARE, Ur Epithelial Cells MOD H, Urine Bacteria FEW H, Urine Hemoglobin MOD H, Urine Glucose NEG, Urine Test NEGATIVE 05/25/18 0736: Anion Gap 11, Estimated GFR > 60, BUN/Creatinine Ratio 30.0 H, Glucose 141 H, Calcium 9.7, Total Bilirubin 0.4, AST 23, ALT 34, Alkaline Phosphatase 88, Total Protein 6.4, Albumin 4.1, Globulin 2.3, Albumin/Globulin Ratio 1.8, Lipase 2541 H, CBC w Diff NO MAN DIFF REQ, RBC 4.44, MCV 91.0, MCH 30.9, MCHC 34.0, RDW 14.3 , MPV 8.8, Gran % 73.1, Lymphocytes % 19.5 L, Monocytes % 4.8, Eosinophils % 2.3, Basophils % 0.3, Absolute Granulocytes 5.7, Absolute Lymphocytes 1.5, Absolute Monocytes 0.4, Absolute Eosinophils 0.2, Absolute Basophils 0 Microbiology 05/25 07 URINE ROUT: Urine Culture - RECD Initial ED EKG: none Departure Departure Disposition: STILL A PATIENT Condition: Stable Clinical Impression Primary Impression: Back pain Secondary Impressions: Chronic pancreatitis, Kidney stone Referrals: Ashley Mcclain APRN (PCP/Family) Departure Forms: Customer Survey General Discharge Information Comments 05/25/18 9 AM The patient's labs and urine are unremarkable. IV fluids and IV Toradol has been given. CT scan is pending. 05/25/18 11:43 am The patient currently denies any pain. Abdomen is soft and nontender. Labs unremarkable. CT scan results shown below: She says she has a history of chronic pancreatitis She is followed by community development coordinator Results of the CT scan were reviewed with Dr. Singer, who is in agreement with the plan of care. The patient has chronic pancreatitis, and likely pseudocyst formation. A copy of the CAT scan report was given to the patient She will follow-up with her community development coordinator this week or return to the emergency department if fever or if pain returns. She'll also follow-up with the urologist for the kidney stone. Serum lipase was added on and came back significantly elevated, consistent with prior elevations in the past. I reviewed the results with Dr. Singer. The patient should follow-up with her community development coordinator, or return to the emergency department if fever, vomiting, or abdominal pain. She had no abdominal pain or tenderness on discharge. 05/25/18 10:20 PM The patient called me back and was informed of the elevated lipase. She says she has no abdominal pain at this time, and that she is aware of the chronic pancreatitis. She says she doesn't think she could follow-up with her community development coordinator until Tuesday. We agreed that she would return to the ER for reevaluation tomorrow , or return sooner should she have abdominal pain, vomiting or fever. She's also told to hold her atorvastatin. Critical Care Note Critical Care Note Critical Care Time: non-applicable
[2018-05-25 07:47] LABS: ABSOLUTE BASOPHIL COUNT 0 /CUMM (0.0-0.2); ABSOLUTE EOSINOPHIL COUNT 0.2 /CUMM (0.0-0.7); ABSOLUTE GRANULOCYTE CT 5.7 /CUMM (1.4-6.5); ABSOLUTE LYMPH COUNT 1.5 /CUMM (1.2-3.4); ABSOLUTE MONOCYTE COUNT 0.4 /CUMM (0.10-0.60); BASOPHIL % 0.3 % (0.0-2.0); EOSINOPHIL % 2.3 % (0-5); GRANULOCYTE % 73.1 % (42.2-75.2); HEMATOCRIT 40.4 % (37-47); MEAN CORPUSCULAR HGB 30.9 PG (27.0-31.0); MEAN PLATELET VOLUME 8.8 FL (7.4-10.4); PLATELET COUNT 244 /CUMM (130-400); RBC DISTRIBUTION WIDTH 14.3 % (11.5-14.5); RED BLOOD CELL CT 4.44 /CUMM (4.20-5.40); WHITE BLOOD CELL COUNT 7.8 /CUMM (4.8-10.8)
--- NOTE | 2018-05-25 09:54 | CT SCAN REPORT ---
EXAMINATION: CT ABDOMEN AND PELVIS WITHOUT CONTRAST CLINICAL INFORMATION: Lateral flank pain 9 out of 10. Rule out renal colic. COMPARISON: CT of the abdomen and pelvis 01/31/2018. TECHNIQUE: Multidetector volumetric imaging was performed from the superior aspect of the liver through the pubic symphysis. Sagittal and coronal reformatted images were obtained on the technologist's workstation. DLP: 330 mGy-cm FINDINGS: LUNG BASES: The visualized lung bases are unremarkable. LIVER, GALLBLADDER, AND BILIARY TREE: The liver is normal in size, shape, and attenuation. No focal hepatic lesion or biliary ductal dilatation is present. Status post cholecystectomy. The common bile duct is not well resolved. PANCREAS: Diffuse inflammatory changes are seen in the pancreatic bed to a greater extent than on the prior study of 01/31/2018. There is infiltration of the fat and mild fascial thickening. The main pancreatic duct does not appear dilated. There is an ill-defined subcentimeter focus of hypoattenuation in the pancreatic body which could represent a walled off pancreatic collection/pseudocyst (series 2 image 21). There is some thickening of the second and third portion of the duodenum which is likely reactive to the pancreatic inflammatory process. SPLEEN: Unremarkable. ADRENAL GLANDS: Unremarkable. KIDNEYS AND URETERS: Redemonstration of nonobstructing 3 mm calculus in the lower pole of the left kidney. No perinephric stranding or hydroureteronephrosis. BLADDER: Unremarkable. GASTROINTESTINAL TRACT: There is mild colonic diverticulosis without inflammatory change. The appendix is normal. Duodenal thickening as described above. ABDOMINAL WALL: No significant hernia is appreciated. LYMPH NODES: Normal. VASCULAR: Mild atheromatous changes in the abdominal aorta and its branch vessels. PELVIC VISCERA: No pelvic mass. OSSEOUS STRUCTURES: Degenerative changes in the lower lumbar spine predominantly at the L4-L5 and L5-S1 level. No fracture or destructive osseous lesion. There is redemonstration of 3 screws traversing a left femoral neck. IMPRESSION: - Recurrent interstitial pancreatitis with greater degree of inflammation than on the prior study of 01/31/2018. Ill-defined subcentimeter focus of hypoattenuation in the pancreatic body may represent a walled off pancreatic collection/pseudocyst (series 2 image 21). - No other acute abnormality. - Nonobstructing 3 mm calculus in the lower pole of the left kidney.
[2018-05-25 11:55] VITALS: BP 126/84
== END 2018-05-25 11:55 ==
LOC: ERH 07:03
PROVIDERS: Emergency Medicine
DX: M54.9 Dorsalgia, unspecified (principal); K86.1 Other chronic pancreatitis; N20.0 Calculus of kidney; R74.8 Abnormal levels of other serum enzymes; I10 Essential (primary) hypertension; F17.210 Nicotine dependence, cigarettes, uncomplicated
CPT/HCPCS: 74176; 81001; 81025; 87071; 87086; 96361; 96374; J1885

== ENCOUNTER 2018-05-26 11:12 | Emergency (ER) | payer OTHER ==
[~2018-05-26] VITALS: Ht 172.7 cm; Wt 69.9 kg
[2018-05-26 11:27] VITALS: BP 134/77
[2018-05-27] MEDS ORDERED: ULTRAM50 M1 PO ×2 (13:08→13:11)
== END 2018-05-26 11:37 | disposition admitted as inpatient to this hospital (09) ==
LOC: ERH 11:12
DX: R39.9 Unspecified symptoms and signs involving the genitourinary system (principal)

== ENCOUNTER 2018-05-27 09:23 | Emergency (ER) | payer OTHER ==
[~2018-05-27] VITALS: Ht 172.7 cm; Wt 69.9 kg
--- NOTE | 2018-05-27 10:58 | ED GI/GU/ABDOMINAL COMPLAINT ---
History of Present Illness General Chief Complaint: General Adult Stated Complaint: CALLED BY ELI FOR ABNORMAL LABS Source: patient Exam Limitations: no limitations Vital Signs & Intake/Output Vital Signs & Intake/Output Vital Signs Date Time Temp Pulse Resp B/P B/P Pulse O2 O2 Flow FiO2 Mean Ox Delivery Rate 05/27 1307 98.0 70 20 120/78 100 Room Air 05/27 1148 50 20 126/83 100 Room Air 05/27 0926 97.5 80 18 125/75 96 Room Air Allergies Coded Allergies: Penicillins (Intermediate, GI UPSET 05/25/18) Reconcile Medications Amlodipine Besylate 5 MG TABLET 5 MG PO DAILY HYPERTENSION . Atorvastatin Calcium 10 MG TABLET 1 TAB PO DAILY HPL (Reported) Tramadol HCl (Ultram) 50 MG TABLET 1 TAB PO Q6P PRN PAIN Triage Note: PT STATES THAT SHE RECIEVED A NEIL L FROM DR BENITEZ YESTERDAY ABOUT ABNORMAL LABS, CAME IN YESTERDAY BUT IT WAS TO BUSY SO SHE LEFT. PT IS UNSURE WHAT LABS. WAS SEEN HERE A COUPLE OF DAYS AGO FOR R FLANK PAIN, SHOWED KIDNEY STONE AND ALSO WAS TOLD HER PANCREASE WAS A LITTLE SWOLLEN. DENIES PAIN IN HER ABDOMEN Triage Nurses Notes Reviewed? yes ? N Is pt currently ? No HPI: 53-year-old female who is presenting to the emergency department for a follow-up visit after having elevated lipase 2500 on lab work from 05/25/2018. Today patient continues to endorse a sharp pain in the right flank is 7 out of 10, states pain improves with Motrin. Denies nausea or vomiting, is tolerating her diet, having normal bowel movements at home. Previous bowel movement was yesterday. Patient states that she has a GI follow-up appointment with Dr. Apple in [place] on the at approximately 10 AM. 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 Welch to discontinue statin as a possible cause of drug-induced pancreatitis. CT shows pancreatic inflammation which is recurrent, a walled off pancreatic collection or pseudocyst. Along with a Non-obstructing 3 mm calculus in the left kidney. (Issac CLAYTON,Dany) Past History Travel History Traveled to [place] past 21 day No Medical History Any Pertinent Medical History? 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 No (Issac CLAYTON,Dany) Review of Systems Review of Systems Constitutional: Reports: see HPI. (Issac CLAYTON,Dany) Physical Exam Physical Exam General Appearance: well developed/nourished, no apparent distress Respiratory: normal breath sounds, chest non-tender, lungs clear Cardiovascular: regular rate/rhythm Gastrointestinal: normal bowel sounds, soft, non-tender, no organomegaly, Negative for CVA tenderness Core Measures ACS in differential dx? No Sepsis Present: No Sepsis Focused Exam Completed? No (Issac CLAYTON,Dany) Progress Differential Diagnosis: pancreatitis, nephrolithiasis Plan of Care: Orders Procedure Date/time Status LIPASE 05/27 1058 Complete COMPREHENSIVE METABOLIC PANEL 05/27 1058 Complete CBC WITHOUT DIFFERENTIAL 05/27 1058 Complete Current Medications Sig/Sina Start time Last Medication Dose Stop Time Status Admin Diphenhydramine HCl 25 MG ONCE ONE 05/27 1200 CAN (Benadryl) 05/27 1201 Morphine Sulfate 4 MG ONCE ONE 05/27 1200 CAN (MORPHINE SULFATE) 05/27 1201 Laboratory Tests 05/27/18 1103: Anion Gap 8, Estimated GFR > 60, BUN/Creatinine Ratio 22.9, Glucose 101 H, Calcium 9.6, Total Bilirubin 0.2, AST 28, ALT 28, Alkaline Phosphatase 75, Total Protein 6.1 L, Albumin 3.8, Globulin 2.3, Albumin/Globulin Ratio 1.7, Lipase 524 H, CBC w Diff NO MAN DIFF REQ, RBC 3.88 L, MCV 90.9, MCH 31.2 H, MCHC 34.3, RDW 13.9, MPV 8.7, Gran % 71.1, Lymphocytes % 20.2 L, Monocytes % 6.0, Eosinophils % 2.2, Basophils % 0.5, Absolute Granulocytes 5.1, Absolute Lymphocytes 1.5, Absolute Monocytes 0.4, Absolute Eosinophils 0.2, Absolute Basophils 0 Initial ED EKG: none (Issac CLAYTON,Dany) Departure Departure Disposition: HOME OR SELF CARE Condition: Stable Clinical Impression Primary Impression: Chronic pancreatitis Qualifiers: Pancreatitis type: drug induced Qualified Codes: K86.1 - Other chronic pancreatitis; T50.905A - Adverse effect of unspecified drugs, medicaments and biological substances, initial encounter Secondary Impressions: Lumbar strain Qualifiers: Encounter type: subsequent encounter Qualified Code: S39.012D - Strain of muscle, fascia and tendon of lower back, subsequent encounter Referrals: Ashley Mcclain APRN (PCP/Family) Additional Instructions: Please take pain medications as needed. Please follow-up with capsule machine operator (Dr. Apple) as scheduled for the appointment on , however please try to go in on Tuesday if possible. Please note that there might be incidental findings in your evaluation that are unrelated to the current emergency department visit. Please notify your primary care doctor about this emergency department visit in order to obtain and review all of the testing performed so that these incidental findings can be monitored as needed. If you had an x-ray performed, please understand that some fractures or other findings may not be seen on the initial set of x-rays. If your symptoms persist you might need a repeat set of x-rays to check for such a fracture. If you had a laceration evaluated, please understand that foreign bodies such as glass or wood may not be visible to the naked eye or on plain x-rays. If the wound becomes red, swollen, increasingly more painful or if there is any drainage from the wound, please have it reevaluated by a physician for the possibility of a retained foreign body. If you're unable to follow up as outlined in the discharge instructions please return to the emergency department. Thank you for choosing the [facility] Emergency Department for your care. It was a pleasure to serve you today. Departure Forms: Customer Survey General Discharge Information Prescriptions: Current Visit Scripts Tramadol HCl (Ultram) 1 TAB PO Q6P PRN PAIN #8 TAB (Dany Davenport MD) Resident Co-Sign Statement Statement: ED Attending supervision documentation- [x] I saw and evaluated the patient. I have also reviewed all the pertinent lab results and diagnostic results. I agree with the findings and the plan of care as documented in the Resident's documentation. [] I have reviewed the ED Record and agree with the Resident's documentation. [] Additions or exceptions (if any) to the Resident's note and plan are summarized below: [] (Delores CLAYTON,Nomi Leal) (Nomi Estrella MD)
[2018-05-27 11:14] LABS: ABSOLUTE BASOPHIL COUNT 0 /CUMM (0.0-0.2); ABSOLUTE EOSINOPHIL COUNT 0.2 /CUMM (0.0-0.7); ABSOLUTE GRANULOCYTE CT 5.1 /CUMM (1.4-6.5); ABSOLUTE LYMPH COUNT 1.5 /CUMM (1.2-3.4); ABSOLUTE MONOCYTE COUNT 0.4 /CUMM (0.10-0.60); BASOPHIL % 0.5 % (0.0-2.0); EOSINOPHIL % 2.2 % (0-5); GRANULOCYTE % 71.1 % (42.2-75.2); MEAN CORPUSCULAR HGB 31.2 PG (27.0-31.0); MEAN CORPUSCULAR HGB CONC 34.3 G/DL (33.0-37.0); MEAN CORPUSCULAR VOLUME 90.9 FL (81.0-99.0); MEAN PLATELET VOLUME 8.7 FL (7.4-10.4); PLATELET COUNT 210 /CUMM (130-400); RBC DISTRIBUTION WIDTH 13.9 % (11.5-14.5); RED BLOOD CELL CT 3.88 /CUMM (4.20-5.40); WHITE BLOOD CELL COUNT 7.2 /CUMM (4.8-10.8)
[2018-05-27 11:18] LABS: HEMATOCRIT 35.3 % (37-47)
[2018-05-27 13:07] VITALS: BP 120/78
[2018-05-27] MEDS ORDERED: ULTRAM50 M1 PO ×2 (13:08→13:11)
== END 2018-05-27 13:13 ==
LOC: ERH 09:23
PROVIDERS: Hospitalist
DX: S39.012A Strain of muscle, fascia and tendon of lower back, initial encounter (principal); K86.1 Other chronic pancreatitis; X58.XXXA Exposure to other specified factors, initial encounter; Y92.9 Unspecified place or not applicable; Y93.9 Activity, unspecified; I10 Essential (primary) hypertension; E78.5 Hyperlipidemia, unspecified
CPT/HCPCS: 96372; J1200